=== PATIENT | female | born 1945 | race Caucasian/White ===

== ENCOUNTER 2019-05-26 12:08 | Outpatient (CLI) | payer MEDICARE, SELFPAY ==
--- NOTE | ~2019-05-26 | XR_ITS ---
EXAMINATION: XR knee RT min 4V DATE: 05/26/2019 12:31 INDICATION: Right knee pain. TECHNIQUE: 4 views of right knee were obtained. COMPARISON: None. FINDINGS: Bone alignment is normal. No fracture. There is mild osteoarthritis of medial and patellofe moral compartments. No knee joint effusion. IMPRESSION: 1. Mild right knee osteoarthritis. Reviewed, dictated and finalized at location A. [employer]
== END 2019-05-26 12:09 | disposition home or self-care (01) ==
LOC: ANHIMG 12:16
PROVIDERS: PCP Family Medicine; Visit Provider Physician Assistant
DX: M17.11 Unilateral primary osteoarthritis, right knee (principal)
CPT/HCPCS: 73564

== ENCOUNTER → 2019-05-29 09:45 | Outpatient (CLI) | payer MEDICARE, SELFPAY ==
--- NOTE | ~2019-05-29 | MR_ITS ---
EXAMINATION: MR knee RT wo con DATE: 05/29/2019 10:31 INDICATION: Right knee pain TECHNIQUE: Magnetic resonance imaging (MRI) of the right knee was performed without intravenous contr ast. Sequences included coronal PD-weighted FSE, coronal PD-weighted FS FSE, sagittal T2-weighted FS E, sagittal PD-weighted FS FSE and axial PD weighted fat saturated FSE. COMPARISON: None. FINDINGS: Medial compartment: Medial meniscus is normal. Partial-thickness cartilage loss with mild chondral surface regularity beverly ng the anterior weightbearing medial femoral condyle. Small mild partial-thickness cartilage loss wit h smooth chondral surface along the posterior weightbearing medial femoral condyle. Lateral compartment: Increased signal contacting the superior and inferior articular surface along the inner third of the lateral meniscal body seen only on single coronal image but with suggestion of subtle corresponding i ncreased signal at this location on the axial and sagittal images suspicious for small radial tear. T here is a cartilage loss which on axial images appears full/near full-thickness along the lateral mar gin of the posterior weightbearing lateral femoral condyle. There is suggestion of subtle underlying cortical regular date with prominent subarticular edema at Patellofemoral compartment: Focal chondral swelling with chondral surface irregularity suggesting crabmeat-like fibrillation the inferior junction of the medial and odd facets of the patella. Remaining cartilage in the patellofemo ral compartment appears normal. Ligaments and tendons: Anterior and posterior cruciate ligaments are normal. The medial collateral ligament is normal. Mild thickening and mild increased intrasubstance signal of the proximal fibular collateral ligament witho ut significant surrounding edema consistent with mild scarring related to chronic sprain. Mild tendin opathy at the lateral side of the distal quadriceps tendon. Patellar tendon is normal. The visualized medial and lateral hamstring tendons as well as the iliotibial band are normal. Fluid: Small knee joint effusion at the suprapatellar pouch. No loose osteochondral bodies identified. Osseous/other: Aside from the marrow edema at the posterolateral aspect of the lateral femoral condyle there is norm al marrow signal throughout. No fracture or pathologic marrow replacing process. IMPRESSION: 1. Likely small radial tear along the inner third of the body of the lateral meniscus. 2. 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 Less severe moderate grade chondromalacia along the anterior weightbearing medi al femoral condyle and the junction of the medial and patellar facets. 3. Small right knee joint effusion. 4. Mild distal quadriceps tendinopathy. 5. Likely mild scarring related to chronic sprain of the proximal fibular collateral ligament. Reviewed, dictated and finalized at location A. [employer] [employer] [facility] IMPRESSION: 1. Likely small radial tear along the inner third of the body of the lateral me niscus. 2. Small region of high-grade chondromalacia along the lateral rim of the poste rior weightbearing lateral femoral condyle. Less severe moderate grade chondrom alacia along the anterior weightbearing medial femoral condyle and the junction of the medial and patellar facets. 3. Small right knee joint effusion. 4. Mild distal quadriceps tendinopathy. 5. Likely mild scarring related to chronic sprain of the proximal fibular colla teral ligament.
== END ==
PROVIDERS: PCP Family Medicine; Visit Provider Physician Assistant
DX: M76.891 Other specified enthesopathies of right lower limb, excluding foot (principal); M25.461 Effusion, right knee; M94.28 Chondromalacia, other site
CPT/HCPCS: 73721

== ENCOUNTER 2019-07-30 08:31 | Emergency (ER) | payer MEDICARE, SELFPAY ==
--- NOTE | ~2019-07-30 | CT_ITS ---
EXAMINATION: CT brain wo con EXAM DATE: 07/30/2019 10:16 INDICATION: Generalized headache. TECHNIQUE: Spiral CT of the head was performed without contrast. Axial, coronal and sagittal images were reviewed. The dose-length product (DLP) for this examination was 605.33 mGy-cm. The exposure w as tailored according to patient size, and iterative reconstruction (ASIR) was used as additional dos e reduction technique. Comparison is made to prior examination from 06/22/2012. FINDINGS: There is no acute intraparenchymal hemorrhage. No evidence of intraparenchymal brain mass lesion. No evidence of acute infarction. Please note that initial head CT has limited sensitivity f or small or acute infarctions. There is mild periventricular and subcortical hypodensity, nonspecific but probably related to small vessel ischemic disease. 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 There are no extra-axial collections. There is no mass effect or midline shift. Patient has bay d bilateral ocular lens surgery. Soft tissue is unremarkable. The visualized sinuses and mastoid ai r cells are well aerated. IMPRESSION: 1. No acute intracranial findings. 2. Chronic age related findings. Reviewed, dictated and finalized at location A.
[2019-07-30 08:38] VITALS: BP 190/92; PULSE 69; RESP 20; TEMP 36.4; O2SAT 99
--- NOTE | 2019-07-30 09:21 | ED.HA ---
HPI - Headache General Chief Complaint: Headache Stated Complaint: headache Time Seen by Provider: 07/30/19 08:38 Source: patient Mode of arrival: ambulatory Limitations: no limitations History of Present Illness HPI Narrative: Patient is a 73-year-old female who presents to the emergency department with complaint of headache. Patient reports onset of symptoms yesterday morning. Patient locates the pain in the frontal region and describes it as throbbing. She had nausea with a headache yesterday and is complaining of photophobia. She denies any history of migraines. She thought perhaps it could be due to her chronic sinus issues, but states this is different than usual sinus headache. Patient did not get relief with Tylenol yesterday and headache is unchanged today. Patient went to urgent care for evaluation hoping she can get something for her sinuses that might help and urgent care was closed, prompting her to come to the emergency department. MD elicited complaint: headache Pertinent past history: coagulopathy (Patient on Eliquis for history of chronic DVT) Onset description: on awakening Location: frontal Quality & Timing: throbbing Relieving factors: nothing Associated symptoms: nausea and photophobia Treatments prior to arrival: acetaminophen Related Data Home Medications Medication Instructions Recorded Confirmed atorvastatin 40 mg tablet 40 mg PO DAILY 02/21/19 cetirizine 10 mg tablet 10 mg PO DAILY PRN tablet 02/21/19 nadolol 40 mg tablet 40 mg PO DAILY 02/21/19 omeprazole 40 mg capsule,delayed 40 mg PO DAILY 02/21/19 release Allergies Allergy/AdvReac Type Severity Reaction Status Date / Time Sulfa (Sulfonamide Allergy Mild unknown Verified 06/19/19 13:12 Antibiotics) amlodipine Allergy Unknown Verified 06/19/19 13:12 ciprofloxacin [From Cipro] Allergy Unknown Verified 06/19/19 13:12 clarithromycin Allergy Unknown Verified 06/19/19 13:12 diltiazem Allergy Unknown Verified 06/19/19 13:12 doxycycline Allergy Unknown Verified 06/19/19 13:12 fexofenadine [From Denisa] Allergy Unknown Verified 06/19/19 13:12 guaifenesin [From Entex T] Allergy Unknown Verified 06/19/19 13:12 hydrochlorothiazide Allergy Unknown Verified 06/19/19 13:12 [From Maxzide] isosorbide Allergy Unknown Verified 06/19/19 13:12 oxycodone Allergy Unknown Verified 06/19/19 13:12 pseudoephedrine Allergy Unknown Verified 06/19/19 13:12 [From Entex T] spironolactone Allergy Unknown Verified 06/19/19 13:12 trazodone Allergy Unknown Verified 06/19/19 13:12 triamterene [From Maxzide] Allergy Unknown Verified 06/19/19 13:12 Review of Systems Review of Systems: All systems reviewed & are unremarkable except as noted in HPI and below Constitutional: Constitutional: Denies fever(s) ENT: Reports post nasal drip and Reports sinus pressure Respiratory: Respiratory: Reports cough (Secondary to postnasal drip) Gastrointestinal: Gastrointestinal: Reports nausea Neurologic: Reports headache(s) [facility] Past Medical History Medical History 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 deep 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
[2019-07-30] MEDS: METOCLOPRAMIDE HCL INJ 10 MG/2 ML VIAL IV PUSH (09:24)
[2019-07-30 09:25] VITALS: BP 158/115; PULSE 68; RESP 16; O2SAT 100
[2019-07-30 09:35] LABS: Basophils Percent Auto 0.4 % (0.2-1.2); Eosinophils Percent Auto 0.7 % (0-4.4); Hematocrit 43.1 % (37.0-47.0); Hemoglobin 13.7 g/dL (12.0-15.0); Immature Granulocyte Absolute 0.02 K/mm3 (0.00-0.031); Immature Granulocyte Percent A 0.4 % (0-0.5); Lymphocytes Absolute Auto 1.95 K/mm3 (0.9-3.2); Lymphocytes Percent Auto 35.5 % (18.3-44.2); Mean Corpuscular HGB Conc 31.8 g/dl (32-36); Mean Corpuscular Hemoglobin 30.6 pg (26-34); Mean Corpuscular Volume 96.2 fl (80-100); Mean Platelet Volume 9.9 fl (7.4-10.4); Monocytes Absolute Auto 0.6 K/mm3 (0.1-0.6); Monocytes Percent Auto 10.4 % (2.6-8.5); Neutrophils Absolute Auto 2.9 K/mm3 (1.3-6.7); Neutrophils Percent Auto 52.6 % (45.5-73.1); Platelet Count Result 211 k/mm3 (150-375); Red Blood Count 4.48 M/mm3 (4.2-5.4); Red Cell Distribution Width 13.8 % (11.5-14.5); White Blood Count 5.5 K/mm3 (4.5-10.0)
[2019-07-30 09:42] VITALS: BP 164/92; PULSE 68; RESP 18; O2SAT 98
[2019-07-30 09:45] LABS: Partial Thromboplastin Time 27.5 SECONDS (22.3-36.8); Prothrombin Time 12.7 Seconds (11.1-14.7)
[2019-07-30 09:47] LABS: Alanine Aminotransferase 32 U/L (4-35); Albumin Level 4.2 g/dL (3.5-5.1); Alkaline Phosphatase 49 U/L (38-126); Aspartate Amino Transferase 25 U/L (14-36); Bilirubin,Total 0.5 mg/dL (0.2-1.3); Blood Urea Nitrogen 12 mg/dL (7-17); Calcium 9.1 mg/dL (8.4-10.2); Carbon Dioxide 26 mmol/L (22-30); Chloride 104 mmol/L (98-107); Estimated CRCL calculation 58 ml/min; Estimated Glomerular Filt Rate > 60; Glucose 108 mg/dL (65-105); Potassium 3.8 mmol/L (3.4-5.0); Sodium 138 mmol/L (137-145)
--- NOTE | 2019-07-30 10:01 | PC.NURSE ---
PT AMBULATED TO BATHROOM, STEADY ON HER FEET, STATES THAT SHE IS FEELING MUCH BETTER.
--- NOTE | 2019-07-30 11:06 | PC.NURSE ---
PT REPORT GIVEN BEDSIDE TO JAD KNIGHT AT THIS TIME, SHE HAS ASSUMED PT CARE.
== END 2019-07-30 11:59 | disposition home or self-care (01) ==
PROVIDERS: Emergency Provider Emergency Medicine; PCP Family Medicine
DX: R51 Headache (principal); I25.118 Atherosclerotic heart disease of native coronary artery with other forms of angina pectoris; I82.542 Chronic embolism and thrombosis of left tibial vein; Z79.01 Long term (current) use of anticoagulants; M47.812 Spondylosis without myelopathy or radiculopathy, cervical region; M47.816 Spondylosis without myelopathy or radiculopathy, lumbar region; K21.9 Gastro-esophageal reflux disease without esophagitis; E78.2 Mixed hyperlipidemia; M81.0 Age-related osteoporosis without current pathological fracture; M35.3 Polymyalgia rheumatica; I10 Essential (primary) hypertension; Z96.641 Presence of right artificial hip joint; E11.42 Type 2 diabetes mellitus with diabetic polyneuropathy; E11.65 Type 2 diabetes mellitus with hyperglycemia; Z79.84 Long term (current) use of oral hypoglycemic drugs
CPT/HCPCS: 36415; 70450; 80053; 85025; 85610; 85730; 96365; 96375; 99284; J0131; J2765

== ENCOUNTER → 2019-12-04 08:48 | Outpatient (CLI) | payer MEDICARE, SELFPAY ==
--- NOTE | ~2019-12-04 | DEXA_ITS ---
Bone Density Report Name: Karlee Jackson Age: 73 Sex: Female Ethnicity: White Date of : 1945 Indication: postmenopausal; screening for osteoporosis; history of glucocorticoids; hysterectomy; Referring Provider: PHYSICIAN NOT ON STAFF Study: Bone densitometry was performed. Exam Date: December 04, 2019 Accession number: [id number] Bone Density: Region BMD T-score Z-score Classification Total Forearm (Left) 0.408 -3.1 -0.3 1/3 Forearm (Left) 0.549 -2.3 0.4 UD Forearm (Left) 0.250 -3.2 -1.1 World Health Organization criteria for BMD impression classify patients as: Normal (T-score at or above -1.0), Osteopenia (T-score between -1.0 and -2.5), or Osteoporosis (T-score at or below -2.5). Clinical Information Provided by Patient: Has taken Glucocorticoids Has used the following medications: Vitamin D Has the following medical conditions: Hysterectomy Patient maximum height was 67 Menopause Age: 46 No regular weight bearing exercise Onset of menses at age 12 Number of children 2 Impression: The patient has low bone mass, based on the Left Third Radius T-score. The patient has risk factors, including: history of glucocorticoid therapy. Discussion: BONE DENSITY IS LOW AT ONE OR MORE SKELETAL SITES. This patient's lowest T-score is low at one or more skeletal sites. It meets the World Health Organization's (WHO) criteria for ?low bone mass? (T-score between -1.0 and -2.5). The patient's 10-year risk of fracture as calculated by FRAX is less than the threshold where pharmacological therapy is recommended by the National Osteoporosis Foundation (NOF). However, all treatment decisions require clinical judgment and consideration of individual patient factors, including patient preferences, comorbidities, previous drug use, risk factors not captured in the FRAX model (e.g., frailty, falls, vitamin D deficiency, increased bone turnover, interval significant decline in bone density) and possible under or overestimation of fracture risk by FRAX. The patient should follow a healthful lifestyle (good nutrition with adequate calcium and vitamin D, and appropriate weight-bearing exercise). Follow-Up: Consider repeating this study in 2 to 3 years to reassess this patient's status, or sooner if there is some new clinical indication. Reported by: BECCA on 12/04/2019 10:33:00 AM. Reviewed, dictated and finalized at location Monica [facility]
--- NOTE | ~2019-12-04 | DEXA_ITS ---
Bone Density Report Name: Karlee Jackson Age: 73 Sex: Female Ethnicity: White Date of : 1945 Indication: postmenopausal; screening for osteoporosis; history of glucocorticoids; hysterectomy; Referring Provider: PHYSICIAN NOT ON STAFF Study: Bone densitometry was performed. Exam Date: December 04, 2019 Accession number: [id number] Bone Density: Region BMD T-score Z-score Classification AP Spine (L1, L2) 0.819 -1.5 0.8 Osteopenia World Health Organization criteria for BMD impression classify patients as: Normal (T-score at or above -1.0), Osteopenia (T-score between -1.0 and -2.5), or Osteoporosis (T-score at or below -2.5). Previous Exams: Region Exam Age BMD T-score BMD Change BMD Change Date g/cm2 vs Baseline vs Previous AP Spine(L1, L2) 12/04/2019 73 0.819 -1.5 -0.421 -0.099* 12/09/2007 61 0.918 -0.6 -0.323 -0.084* 04/27/2005 59 1.001 0.2 -0.239 -0.239 04/09/2003 57 1.240 2.4 *Denotes significance at 95% confidence level, LSC for AP Spine = 0.022 g/cm2 Clinical Information Provided by Patient: Has taken Glucocorticoids Has used the following medications: Vitamin D Has the following medical conditions: Hysterectomy Patient maximum height was 67 Menopause Age: 46 No regular weight bearing exercise Onset of menses at age 12 Number of children 2 Impression: The patient has low bone mass, based on the Total Spine T-score. The patient has risk factors, including: history of glucocorticoid therapy. The BMD for the AP Spine(L1, L2) decreased, changing by -0.099 since the last DXA exam. Discussion: BONE DENSITY IS LOW AT ONE OR MORE SKELETAL SITES. This patient's lowest T-score is low at one or more skeletal sites. It meets the World Health Organization's (WHO) criteria for ?low bone mass? (T-score between -1.0 and -2.5). The patient's 10-year risk of fracture as calculated by FRAX is less than the threshold where pharmacological therapy is recommended by the National Osteoporosis Foundation (NOF). However, all treatment decisions require clinical judgment and consideration of individual patient factors, including patient preferences, comorbidities, previous drug use, risk factors not captured in the FRAX model (e.g., frailty, falls, vitamin D deficiency, increased bone turnover, interval significant decline in bone density) and possible under or overestimation of fracture risk by FRAX. The patient should follow a healthful lifestyle (good nutrition with adequate calcium and vitamin D, and appropriate weight-bearing exercise). Follow-Up: Consider repeating this study in 2 years to reassess this patient's status, or sooner if there is some new clinical indication. Reported
== END ==
PROVIDERS: PCP Family Medicine
DX: Z78.0 Asymptomatic menopausal state (principal); M85.88 Other specified disorders of bone density and structure, other site
CPT/HCPCS: 77080; 77081

== ENCOUNTER → 2019-12-21 07:59 | Outpatient (CLI) | payer MEDICARE, SELFPAY ==
--- NOTE | ~2019-12-21 | MR_ITS ---
EXAMINATION: MR brain/brain stem wo con EXAM DATE: 12/21/2019 09:12 INDICATION: Headache disorder, polymyalgia rheumatica. Right-sided pressure, pain behind right eye. S ymptoms one year. TECHNIQUE: Magnetic resonance imaging (MRI) of the brain/brain stem obtained without contrast. Alex al T1, axial diffusion, gradient echo (T2*), T1, T2, FLAIR sequences obtained. Correlation is made t o head CT 07/30/2019. FINDINGS: There are no areas of restricted diffusion to suggest acute infarction. There is no acute hemorrhage seen on the T2*, a hemosiderin sensitive sequence. No intraparenchymal brain mass lesion. There is mild periventricular and subcortical T2/FLAIR signal hyperintensity, nonspecific but probab ly related to small vessel ischemic disease (microangiopathy). There are no extra-axial collections . Flow voids are seen in the cerebral arteries on the T2-weighted sequences consistent with their ex pected patency. Patient has had bilateral ocular lens surgery. Soft tissue is unremarkable. IMPRESSION: 1. No acute intracranial findings. 2. Mild microangiopathy. Reviewed, dictated and finalized at location A.
--- NOTE | ~2019-12-21 | MR_ITS ---
EXAMINATION: MRA brain wo con EXAM DATE: 12/21/2019 09:09 INDICATION: Right-sided head pressure, pain behind right eye. TECHNIQUE: 3-D [id number] MRA of the intracranial arteries was performed without contrast. There is no prior study for comparison. FINDINGS: There is normal flow related signal seen within the vertebral, basilar and internal carotid arteries. There is no proximal stenosis. There are no aneurysms identified. Both A1 and P1 segments are pat ent. Flow in the cerebral arteries is symmetric. Left vertebral artery is dominant. IMPRESSION: Unremarkable MRA brain exam. Reviewed, dictated and finalized at location A.
== END ==
PROVIDERS: PCP Family Medicine
DX: R51 Headache (principal); M35.3 Polymyalgia rheumatica; R93.0 Abnormal findings on diagnostic imaging of skull and head, not elsewhere classified
CPT/HCPCS: 70544; 70551

== ENCOUNTER → 2020-01-15 11:29 | Outpatient (CLI) | payer MEDICARE, SELFPAY ==
--- NOTE | ~2020-01-15 | MM_ITS ---
EXAMINATION: MM screening cyril BI w radha HISTORY: Screening TECHNIQUE: Craniocaudal and mediolateral oblique 3-D tomosynthesis images were obtained and synthetic 2-D images were generated. CAD analysis was submitted and interpreted. COMPARISON: Comparison to multiple prior studies sequentially, with oldest reviewed study dated 09/24. BREAST PARENCHYMAL COMPOSITION: There are scattered areas of fibroglandular density. FINDINGS: Stable benign-appearing breast calcifications. There is no evidence of suspicious mass, kwesi cification, or architectural distortion to suggest malignancy in either breast. There has been no kizzy picious interval change. IMPRESSION: 1. No mammographic evidence of malignancy. 2. Recommend routine screening mammography in one year. BI-RADS Category 2: Benign finding(s). Reviewed, dictated and finalized at location A.
== END ==
PROVIDERS: PCP Family Medicine; Visit Provider Family Medicine
DX: Z12.31 Encounter for screening mammogram for malignant neoplasm of breast (principal)
CPT/HCPCS: 77063; 77067

== ENCOUNTER 2020-02-27 02:35 | Outpatient (CLI) | payer MEDICARE, SELFPAY ==
[2020-02-27 19:47] LABS: SARS-CoV-2 RNA PCR Negative
== END 2020-02-27 02:36 | disposition home or self-care (01) ==
LOC: ANHCOVIDDT 02:36
PROVIDERS: PCP Family Medicine; Visit Provider Internal Medicine Gastroenterology
DX: Z01.812 Encounter for preprocedural laboratory examination (principal); Z20.828 Contact with and (suspected) exposure to other viral communicable diseases
CPT/HCPCS: 87635; C9803; U0003

== ENCOUNTER 2020-03-01 04:08 | Day surgery (SDC) | payer MEDICARE, SELFPAY ==
[2020-02-26 13:11] VITALS: BMI 25.9
[2020-03-01 07:09] VITALS: BP 174/85; PULSE 75; RESP 20; TEMP 36; O2SAT 96
[2020-03-01] MEDS: LACTATED RINGERS 1,000 ML 150 ML IV CONT (07:26)
[2020-03-01 07:30] LABS: Glucose Point of Care 85 (65-105)
--- NOTE | 2020-03-01 08:02 | WPDANESEPPF ---
Anes - Initial Pre Proc Eval Procedure: Operation Date: 03/01/20 08:30 Proposed Procedures p Esophagogastroduodenoscopy - Arash Padilla MD Date/Time: 03/01/20 08:02 Surgeon: Arash Padilla MD Pre Op Diagnosis: GERD Patient Data Age: 74 Gender: F Height: 5 ft 7 in Weight: 76 kg Last Vital Signs Temp 36.0 C L 03/01/20 07:09 Pulse 75 03/01/20 07:09 Resp 20 03/01/20 07:09 BP 174/85 H 03/01/20 07:09 Pulse Ox 96 03/01/20 07:09 Allergies Allergy/AdvReac Type Severity Reaction Status Date / Time Sulfa (Sulfonamide Allergy Mild unknown Verified 03/01/20 07:07 Antibiotics) amitriptyline Allergy Other Verified 03/01/20 07:07 amlodipine Allergy Unknown Verified 03/01/20 07:07 ciprofloxacin [From Cipro] Allergy Unknown Verified 03/01/20 07:07 citalopram Allergy Other Verified 03/01/20 07:07 clarithromycin Allergy Unknown Verified 03/01/20 07:07 diltiazem Allergy Unknown Verified 03/01/20 07:07 doxycycline Allergy Unknown Verified 03/01/20 07:07 fexofenadine [From Denisa] Allergy Unknown Verified 03/01/20 07:07 guaifenesin [From Entex T] Allergy Unknown Verified 03/01/20 07:07 hydrochlorothiazide Allergy Unknown Verified 03/01/20 07:07 [From Maxzide] isosorbide Allergy Unknown Verified 03/01/20 07:07 nortriptyline Allergy Other Verified 03/01/20 07:07 oxycodone Allergy Unknown Verified 03/01/20 07:07 pseudoephedrine Allergy Unknown Verified 03/01/20 07:07 [From Entex T] sertraline Allergy Other Verified 03/01/20 07:07 spironolactone Allergy Unknown Verified 03/01/20 07:07 trazodone Allergy Unknown Verified 03/01/20 07:07 triamterene [From Maxzide] Allergy Unknown Verified 03/01/20 07:07 Home Medications Medication Instructions Recorded Confirmed Type cetirizine 10 mg tablet 10 mg PO DAILY PRN tablet 02/21/19 03/01/20 History triamcinolone acetonide 55 mcg 2 spray NASAL DAILY #16.9 ml 07/31/19 03/01/20 Rx nasal spray aerosol atorvastatin 40 mg tablet 40 mg PO DAILY #90 tablet 08/15/19 03/01/20 Rx folic acid 1 mg tablet 1 mg PO DAILY #90 tablet 09/15/19 03/01/20 Rx prednisone 2.5 mg tablet 2.5 mg PO DAILY #90 tablet 09/15/19 03/01/20 Rx metformin 500 mg tablet,extended 500 mg PO DAILY #90 tablet 10/06/19 03/01/20 Rx release 24 hr alprazolam 0.5 mg tablet 0.5 mg PO .COMPLEX #2 tablet 12/11/19 03/01/20 Rx apixaban 5 mg tablet 5 mg PO BID #60 tablet 12/14/19 03/01/20 Rx verapamil 120 mg 24 hr 120 mg PO DAILY #90 cap 12/14/19 03/01/20 Rx capsule,extended release cholecalciferol (vitamin D3) 1,250 1,250 mcg PO WEEKLY 12/15/19 03/01/20 History mcg (50,000 unit) capsule nadolol 40 mg tablet 40 mg PO DAILY #90 tablet 12/29/19 03/01/20 Rx blood sugar diagnostic #100 each 01/11/20 03/01/20 Rx zolpidem 5 mg tablet 5 mg PO ONCE #60 tablet 02/05/20 03/01/20 Rx pantoprazole 40 mg tablet,delayed 40 mg PO QAM #90 tablet 02/27/20 03/01/20 Rx release Laboratory Tests 03/01/20 07:22 POC Capillary Glucose 85 mg/dl mg/dl (65-105) Patient hx anesthesia problems: none Family hx anesthesia problems: none [facility] Past Medical History Medical History Atherosclerotic heart disease of [place] coronary artery with other forms of angina pectoris Chronic deep vein thrombosis (DVT) of tibial vein of left lower extremity Degenerative joint disease of cervical and lumbar spine Diabetic polyneuropathy associated with type 2 diabetes mellitus Gastroesophageal reflux disease Mixed hyperlipidemia Osteoporosis, unspecified Polymyalgia rheumatica (~04/2018) Primary insomnia Type 2 diabetes mellitus with hyperglycemia Unspecified essential hypertension Surgical History Surgical History Status post right hip replacement Family History Family History Father Family history of coronary artery disease
--- NOTE | 2020-03-01 08:39 | WPDGICN ---
Assessment and Plan Assessment and plan (1) Gastroesophageal reflux disease: Qualifiers: Esophagitis presence: esophagitis presence not specified Qualified Code(s): K21.9 - Gastro-esophageal reflux disease without esophagitis Code(s): K21.9 - Gastro-esophageal reflux disease without esophagitis Status: Chronic Assessment and Plan: patient has substernal discomfort. Appears to be correlate with possible acid reflux. Some improvement with antacids are noted. Plan is to continue pantoprazole. An EGD will be performed further recommendations will be given after endoscopy. 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 patient complains of several month history of substernal chest pressure. She feels regurgitation period acid and fluid peers to reflux from her stomach. She complains of discomfort. She has started pantoprazole over the last 1 to 1-1/2 months with some modest relief of symptoms. She denies any dysphagia or bleeding. Because of ongoing symptoms an EGD is requested will be performed today. Past medical history is significant for a DVT in September of this year for which she has been on Eliquis anticoagulation. This will be held for the procedure. 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 Diabetic polyneuropathy associated with type 2 diabetes mellitus Gastroesophageal reflux disease Mixed hyperlipidemia Osteoporosis, unspecified Polymyalgia rheumatica (~04/2018) Primary insomnia Type 2 diabetes mellitus with hyperglycemia Unspecified essential hypertension Surgical History Surgical History Status post right hip replacement Family History Family History Father Family history of coronary artery disease Other Hypertension Social History Social History Alcohol intake: never Living arrangements: with family Gender identity (if verbalized by the patient): Female Spiritual care concerns: No Meds Home Medications and Allergies Home Medications Medication Instructions Recorded Confirmed Type cetirizine 10 mg tablet 10 mg PO DAILY PRN tablet 02/21/19 03/01/20 History triamcinolone acetonide 55 mcg 2 spray NASAL DAILY #16.9 ml 07/31/19 03/01/20 Rx nasal spray aerosol atorvastatin 40 mg tablet 40 mg PO DAILY #90 tablet 08/15/19 03/01/20 Rx folic acid 1 mg tablet 1 mg PO DAILY #90 tablet 09/15/19 03/01/20 Rx prednisone 2.5 mg tablet 2.5 mg PO DAILY #90 tablet 09/15/19 03/01/20 Rx metformin 500 mg tablet,extended 500 mg PO DAILY #90 tablet 10/06/19 03/01/20 Rx release 24 hr alprazolam 0.5 mg tablet 0.5 mg PO .COMPLEX #2 tablet 12/11/19 03/01/20 Rx apixaban 5 mg tablet 5 mg PO BID #60 tablet 12/14/19 03/01/20 Rx verapamil 120 mg 24 hr 120 mg PO DAILY #90 cap 12/14/19 03/01/20 Rx capsule,extended release cholecalciferol (vitamin D3) 1,250 1,250 mcg PO WEEKLY 12/15/19 03/01/20 History mcg (50,000 unit) capsule nadolol 40 mg tablet 40 mg PO DAILY #90 tablet 12/29/19 03/01/20 Rx blood sugar diagnostic #
[2020-03-01] MEDS: BENZOCAINE (*SP) 60 ML SPRAY CAN (HURRICAINE) 1 SPRAY MUCOUS MEM (08:47)
[2020-03-01 09:04] VITALS: BP 146/77; PULSE 68; RESP 19; O2SAT 94
[2020-03-01 09:14] VITALS: BP 129/73; PULSE 68; RESP 20; O2SAT 99
[2020-03-01 09:24] VITALS: BP 132/81; PULSE 72; RESP 23; O2SAT 95
[2020-03-01 09:34] VITALS: BP 128/80; PULSE 70; RESP 23; O2SAT 96
== END 2020-03-01 09:48 | disposition home or self-care (01) ==
PROVIDERS: PCP Family Medicine; Visit Provider Internal Medicine Gastroenterology
PROC: 0DJ08ZZ Inspection of Upper Intestinal Tract, Via Natural or Artificial Opening Endoscopic (ICD-10-PCS; CPT 43235; principal; 2020-03-01 08:30)
DX: K21.9 Gastro-esophageal reflux disease without esophagitis (principal); K22.70 Barrett's esophagus without dysplasia; I25.10 Atherosclerotic heart disease of native coronary artery without angina pectoris; I10 Essential (primary) hypertension; E78.2 Mixed hyperlipidemia; E11.42 Type 2 diabetes mellitus with diabetic polyneuropathy; M35.3 Polymyalgia rheumatica; I82.542 Chronic embolism and thrombosis of left tibial vein; Z79.01 Long term (current) use of anticoagulants; F51.01 Primary insomnia
CPT/HCPCS: 43239; 88305; J2001; J2704; J7120

== ENCOUNTER → 2021-02-07 15:32 | Outpatient (CLI) | payer MEDICARE, SELFPAY ==
--- NOTE | ~2021-02-07 | MM_ITS ---
EXAMINATION: MM screening cyril BI w radha HISTORY: Screening mammogram TECHNIQUE: Craniocaudal and mediolateral oblique 3-D tomosynthesis images were obtained and synthetic 2-D images were generated. CAD analysis was submitted and interpreted. COMPARISON: 01/15/2020, 11/25/2018, 11/04/2017 bilateral screening mammogram examinations BREAST PARENCHYMAL COMPOSITION: The breasts are heterogeneously dense, which may obscure small masses . FINDINGS: Numerous benign punctate microcalcifications are noted bilaterally. There is no evidence of suspicious mass, calcification, or architectural distortion to suggest malignancy in either breast. There has been no suspicious interval change. IMPRESSION: 1. No mammographic evidence of malignancy. 2. Recommend routine screening mammography in one year. BI-RADS Category 2: Benign finding(s). Reviewed, dictated and finalized at location A.
== END ==
PROVIDERS: Visit Provider Physician Assistant
DX: Z12.31 Encounter for screening mammogram for malignant neoplasm of breast (principal)
CPT/HCPCS: 77063; 77067

== ENCOUNTER 2021-09-26 13:14 | Emergency (ER) | payer MEDICARE, SELFPAY ==
[2021-09-26 13:30] VITALS: BP 159/106; PULSE 70; RESP 20; TEMP 36.4; O2SAT 100
--- NOTE | 2021-09-26 13:35 | ED.URI ---
HPI - URI/Sore Throat General Chief Complaint: Upper Respiratory Infection Stated Complaint: Sore Throat Time Seen by Provider: 09/26/21 13:35 History of Present Illness HPI Narrative: Karlee Jackson is a 75 y female with a PMH of HTN, anxiety, anticoagulation, SVT, sleep difficulty, patient is here for a scratchy throat. Her just diagnosed with strep. She has to watch her grandchildren next week and she is concerned; patient swabbed for strep Patient states she has had all her vaccines and has no other symptoms; is not concerned about COVID Related Data Home Medications Medication Instructions Recorded Confirmed cetirizine 10 mg tablet 10 mg PO DAILY PRN Allergy Symptoms 02/21/19 09/26/21 amitriptyline 10 mg tablet 10 mg PO QHS 08/19/20 09/26/21 alprazolam 0.5 mg tablet 0.5 mg PO .COMPLEX PRN Anxiety 09/26/21 09/26/21 Allergies Allergy/AdvReac Type Severity Reaction Status Date / Time Sulfa (Sulfonamide Allergy Mild unknown Verified 09/26/21 13:23 Antibiotics) amitriptyline Allergy Other Verified 09/26/21 13:23 amlodipine Allergy Unknown Verified 09/26/21 13:23 ciprofloxacin [From Cipro] Allergy Unknown Verified 09/26/21 13:23 citalopram Allergy Other Verified 09/26/21 13:23 clarithromycin Allergy Unknown Verified 09/26/21 13:23 diltiazem Allergy Unknown Verified 09/26/21 13:23 doxycycline Allergy Unknown Verified 09/26/21 13:23 fexofenadine [From Denisa] Allergy Unknown Verified 09/26/21 13:23 guaifenesin [From Entex T] Allergy Unknown Verified 09/26/21 13:23 hydrochlorothiazide Allergy Unknown Verified 09/26/21 13:23 [From Maxzide] isosorbide Allergy Unknown Verified 09/26/21 13:23 nortriptyline Allergy Other Verified 09/26/21 13:23 oxycodone Allergy Unknown Verified 09/26/21 13:23 pseudoephedrine Allergy Unknown Verified 09/26/21 13:23 [From Entex T] sertraline Allergy Other Verified 09/26/21 13:23 spironolactone Allergy Unknown Verified 09/26/21 13:23 trazodone Allergy Unknown Verified 09/26/21 13:23 triamterene [From Maxzide] Allergy Unknown Verified 09/26/21 13:23 Review of Systems Review of Systems: CONSTITUTIONAL: Denies fever, chills, sweats. EYES: Denies visual changes, redness, discharge. ENT: Denies rhinorrhea, congestion, scratchy sore throat, otalgia. CARDIOVASCULAR: Denies chest pain, palpitations, edema. RESPIRATORY: Denies dyspnea, wheezing, cough GASTROINTESTINAL: Denies abdominal pain, nausea, vomiting, diarrhea. GENITOURINARY: Denies dysuria, hematuria, abnormal discharge SKIN: Denies rash or itching. NEUROLOGIC: Denies numbness, or focal weakness. PSYCHIATRIC: Denies anxiety or depression. [facility] Past Medical History Medical History Atherosclerotic heart disease of [place] coronary artery with other forms of angina pectoris Chronic deep vein thrombosis (DVT) of tibial vein of left lower extremity Degenerative joint disease of cervical and lumbar spine Diabetic polyneuropathy associated with type 2 diabetes mellitus Gastroesophageal reflux disease Mixed hyperlipidemia Osteoporosis, unspecified Polymyalgia rheumatica (~04/2018) Primary insomnia Type 2 diabetes mellitus with hyperglycemia Unspecified essential hypertension Surgical History Surgical History Status post right hip replacement Family History Family History Father Family history of coronary artery disease Other Hypertension Social History Social History Alcohol intake: never Gender identity (if verbalized by the patient): Female Spiritual care concerns: No Comments At time of signature, I agree with nursing past medical, surgical, social and family history. There is no relevant family history pertinent to the presenting complaint. Exam Narrative: GEN
== END 2021-09-26 13:47 | disposition home or self-care (01) ==
PROVIDERS: Emergency Provider Nurse Practitioner; PCP Family Medicine
DX: J02.9 Acute pharyngitis, unspecified (principal); I25.118 Atherosclerotic heart disease of native coronary artery with other forms of angina pectoris; Z86.718 Personal history of other venous thrombosis and embolism; M47.812 Spondylosis without myelopathy or radiculopathy, cervical region; M47.816 Spondylosis without myelopathy or radiculopathy, lumbar region; E11.42 Type 2 diabetes mellitus with diabetic polyneuropathy; E78.2 Mixed hyperlipidemia; M81.0 Age-related osteoporosis without current pathological fracture; I10 Essential (primary) hypertension
CPT/HCPCS: 87081; 87880; 99213; G0463

== ENCOUNTER 2021-11-27 08:09 | Emergency (ER) | payer MEDICARE, SELFPAY ==
[2021-11-27 08:26] VITALS: BP 194/82; PULSE 58; RESP 16; TEMP 36.1; O2SAT 100
--- NOTE | 2021-11-27 08:26 | ED.URI ---
HPI - URI/Sore Throat General Chief Complaint: Upper Respiratory Infection Stated Complaint: COUGH/CONGESTION/SORE THROAT Time Seen by Provider: 11/27/21 08:16 Source: patient and RN notes reviewed History of Present Illness HPI Narrative: Patient is a 75-year-old female who presents the urgent care with complaints of cough, congestion, sore throat and sinus drainage for the last 3 days. Patient states that the sore throat started this morning. Patient states that her had strep 2 weeks ago and her daughter was diagnosed with COVID over 1 week ago. Patient has not seen her daughter for the last several days. States that her was treated appropriately 2 weeks ago for strep throat. Patient is not taking anything [id number] for her symptoms. Denies any fevers, nausea, vomiting. Denies any shortness of breath or chest pain. Patient states that she has been sitting outside in the cool mornings and believes her symptoms are due to the sinus drainage. No other acute complaints. No acute distress noted. Patient aware of the plan of care. Some parts of this dictation were generated by voice recognition software and may contain typographical and/or grammatical inaccuracies. Related Data Home Medications Medication Instructions Recorded Confirmed cetirizine 10 mg tablet 10 mg PO DAILY PRN Allergy Symptoms 02/21/19 11/12/21 amitriptyline 10 mg tablet 10 mg PO QHS 08/19/20 11/12/21 omeprazole 40 mg capsule,delayed 40 mg PO DAILY 11/19/21 release Allergies Allergy/AdvReac Type Severity Reaction Status Date / Time Sulfa (Sulfonamide Allergy Mild unknown Verified 11/19/21 13:19 Antibiotics) amlodipine Allergy Unknown Verified 11/19/21 13:19 ciprofloxacin [From Cipro] Allergy Unknown Verified 11/19/21 13:19 citalopram Allergy Other Verified 11/19/21 13:19 clarithromycin Allergy Unknown Verified 11/19/21 13:19 diltiazem Allergy Unknown Verified 11/19/21 13:19 doxycycline Allergy Unknown Verified 11/19/21 13:19 fexofenadine [From Denisa] Allergy Unknown Verified 11/19/21 13:19 guaifenesin [From Entex T] Allergy Unknown Verified 11/19/21 13:19 hydrochlorothiazide Allergy Unknown Verified 11/19/21 13:19 [From Maxzide] isosorbide Allergy Unknown Verified 11/19/21 13:19 nortriptyline Allergy Other Verified 11/19/21 13:19 oxycodone Allergy Unknown Verified 11/19/21 13:19 pseudoephedrine Allergy Unknown Verified 11/19/21 13:19 [From Entex T] sertraline Allergy Other Verified 11/19/21 13:19 spironolactone Allergy Unknown Verified 11/19/21 13:19 trazodone Allergy Unknown Verified 11/19/21 13:19 triamterene [From Maxzide] Allergy Unknown Verified 11/19/21 13:19 Review of Systems Review of Systems: CONSTITUTIONAL: Denies fever, chills, or sweats. EYES: Denies visual changes, redness, or discharge. ENT: Reports of sore throat, sinus congestion, postnasal drainage CARDIOVASCULAR: Denies chest pain, palpitations, or edema. RESPIRATORY: Denies cough or dyspnea. GASTROINTESTINAL: Denies abdominal pain, nausea, vomiting, or diarrhea. GENITOURINARY: Denies dysuria or hematuria. SKIN: Denies rash or itching. MUSCULOSKELETAL: Denies back pain, joint pain, or myalgia. NEUROLOGIC: Denies headache, numbness, or weakness. All other systems reviewed are negative, except as documented in HPI. [facility] Past Medical History Medical History (Updated 11/27/21 @ 08:44 by YANCY Mathew) Atherosclerotic heart disease of [place] coronary artery with other forms of angina pectoris Chronic deep vein thrombosis (DVT) of tibial vein of left lower extremity Degenerative joint disease of cervical and lumbar spine Diabetic polyneuropathy associated with type 2 diabetes mellitus Gastroesophageal reflux disease Mixed hyperlipidemia Osteoporosis, unspecified Polymyalgia rheumatica (~04/2018) Primary insomnia Type 2 diabetes mellitus with hyperglycemia Unspecified essential hypertension Surgical History Surgic
[2021-11-27 20:17] LABS: SARS-CoV-2 RNA PCR Negative
== END 2021-11-27 09:04 | disposition home or self-care (01) ==
PROVIDERS: Emergency Provider Nurse Practitioner Family
DX: J32.9 Chronic sinusitis, unspecified (principal); Z20.822 Contact with and (suspected) exposure to COVID-19; I25.118 Atherosclerotic heart disease of native coronary artery with other forms of angina pectoris; M47.812 Spondylosis without myelopathy or radiculopathy, cervical region; M47.816 Spondylosis without myelopathy or radiculopathy, lumbar region; E11.42 Type 2 diabetes mellitus with diabetic polyneuropathy; K21.9 Gastro-esophageal reflux disease without esophagitis; E78.2 Mixed hyperlipidemia; M81.0 Age-related osteoporosis without current pathological fracture; I10 Essential (primary) hypertension; M35.3 Polymyalgia rheumatica; Z96.642 Presence of left artificial hip joint
CPT/HCPCS: 87081; 87426; 87880; 99213; C9803; G0463; U0003; U0005

== ENCOUNTER 2021-12-05 13:06 | Emergency (ER) | payer OTHER, MEDICARE, SELFPAY ==
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
[2021-12-05 13:40] VITALS: BP 189/77; PULSE 62; RESP 20; TEMP 36.6; O2SAT 100
[2021-12-05 16:46] LABS: Glucose Point of Care 107 mg/dl (65-105)
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
== END 2021-12-05 17:36 | disposition home or self-care (01) ==
PROVIDERS: Emergency Provider Emergency Medicine; PCP Family Medicine
DX: S16.1XXA Strain of muscle, fascia and tendon at neck level, initial encounter (principal); R51.9 Headache, unspecified; I25.118 Atherosclerotic heart disease of native coronary artery with other forms of angina pectoris; I10 Essential (primary) hypertension; E11.42 Type 2 diabetes mellitus with diabetic polyneuropathy; E78.2 Mixed hyperlipidemia; M81.0 Age-related osteoporosis without current pathological fracture; M35.3 Polymyalgia rheumatica; M47.816 Spondylosis without myelopathy or radiculopathy, lumbar region; M47.812 Spondylosis without myelopathy or radiculopathy, cervical region; Z86.718 Personal history of other venous thrombosis and embolism; Z96.641 Presence of right artificial hip joint; Z79.84 Long term (current) use of oral hypoglycemic drugs; Z79.01 Long term (current) use of anticoagulants; V49.40XA Driver injured in collision with unspecified motor vehicles in traffic accident, initial encounter
CPT/HCPCS: 70450; 72125; 82948; 99284

== ENCOUNTER 2021-12-25 10:17 | Emergency (ER) | payer MEDICARE, SELFPAY ==
[2021-12-25 10:29] VITALS: BP 152/73; PULSE 73; RESP 16; TEMP 36.4; O2SAT 100
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
== END 2021-12-25 10:57 | disposition home or self-care (01) ==
PROVIDERS: Emergency Provider Registered Nurse; PCP Family Medicine
DX: J32.9 Chronic sinusitis, unspecified (principal); Z20.822 Contact with and (suspected) exposure to COVID-19; K21.9 Gastro-esophageal reflux disease without esophagitis; E78.2 Mixed hyperlipidemia; M81.0 Age-related osteoporosis without current pathological fracture; E11.42 Type 2 diabetes mellitus with diabetic polyneuropathy; I10 Essential (primary) hypertension; Z96.641 Presence of right artificial hip joint; M35.3 Polymyalgia rheumatica; M47.812 Spondylosis without myelopathy or radiculopathy, cervical region; M47.816 Spondylosis without myelopathy or radiculopathy, lumbar region; Z86.718 Personal history of other venous thrombosis and embolism; I25.118 Atherosclerotic heart disease of native coronary artery with other forms of angina pectoris
CPT/HCPCS: 87426; 99213; C9803; G0463

== ENCOUNTER 2022-01-26 20:54 | Emergency (ER) | payer MEDICARE, SELFPAY ==
[2022-01-26 20:57] VITALS: BP 166/97; PULSE 62; RESP 18; TEMP 36.6; O2SAT 100
[2022-01-26 21:18] LABS: Basophils Percent Auto 0.4 % (0.2-1.2); Eosinophils Absolute Auto 0.1 K/mm3 (0-0.3); Hematocrit 39.9 % (37.0-47.0); Hemoglobin 12.6 g/dL (12.0-15.0); Immature Granulocyte Absolute 0.02 K/mm3 (0.00-0.031); Immature Granulocyte Percent A 0.4 % (0-0.5); Lymphocytes Absolute Auto 1.53 K/mm3 (0.9-3.2); Lymphocytes Percent Auto 29.5 % (18.3-44.2); Mean Corpuscular HGB Conc 31.6 g/dl (32-36); Mean Corpuscular Hemoglobin 31.1 pg (26-34); Mean Corpuscular Volume 98.5 fl (80-100); Monocytes Absolute Auto 0.4 K/mm3 (0.1-0.6); Monocytes Percent Auto 7.9 % (2.6-8.5); Neutrophils Absolute Auto 3.2 K/mm3 (1.3-6.7); Neutrophils Percent Auto 60.8 % (45.5-73.1); Platelet Count Result 211 k/mm3 (150-375); Red Blood Count 4.05 M/mm3 (4.2-5.4); Red Cell Distribution Width 14.6 % (11.5-14.5); White Blood Count 5.2 K/mm3 (4.5-10.0)
[2022-01-26 21:30] LABS: Anion Gap 8 mmol/L (8-16); Blood Urea Nitrogen 15 mg/dL (7-17); Calcium 9.3 mg/dL (8.4-10.2); Carbon Dioxide 28 mmol/L (22-30); Chloride 103 mmol/L (98-107); Estimated CRCL calculation 55 ml/min; Estimated Glomerular Filt Rate > 60; Glucose 143 mg/dL (65-110); Potassium 3.6 mmol/L (3.4-5.0); Sodium 139 mmol/L (137-145)
[2022-01-26 21:57] LABS: INR 1.3; Prothrombin Time 15.3 Seconds (11.1-14.7)
[2022-01-26 21:58] LABS: Partial Thromboplastin Time 32.5 SECONDS (22.3-36.8)
[2022-01-26 22:53] LABS: D Dimer 0.37 ug/mL (<0.48)
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
[2022-01-27 00:12] VITALS: BP 159/70; PULSE 68; RESP 18; O2SAT 100
== END 2022-01-27 00:16 | disposition home or self-care (01) ==
PROVIDERS: Emergency Medicine; Emergency Provider Nurse Practitioner Family; PCP Family Medicine
DX: M79.661 Pain in right lower leg (principal); I25.118 Atherosclerotic heart disease of native coronary artery with other forms of angina pectoris; E11.42 Type 2 diabetes mellitus with diabetic polyneuropathy; E78.2 Mixed hyperlipidemia; I10 Essential (primary) hypertension; K21.9 Gastro-esophageal reflux disease without esophagitis; M35.3 Polymyalgia rheumatica; M81.0 Age-related osteoporosis without current pathological fracture; Z86.718 Personal history of other venous thrombosis and embolism; Z96.641 Presence of right artificial hip joint; Z79.01 Long term (current) use of anticoagulants
CPT/HCPCS: 36415; 80048; 85025; 85380; 85610; 85730; 99283

== ENCOUNTER → 2022-03-24 14:44 | Outpatient (CLI) | payer MEDICARE, SELFPAY ==
--- NOTE | ~2022-03-24 | MM_ITS ---
EXAMINATION: MM screening cyril BI w radha HISTORY: Screening TECHNIQUE: Craniocaudal and mediolateral oblique 3-D tomosynthesis images were obtained and synthetic 2-D images were generated. CAD analysis was submitted and interpreted. COMPARISON: Comparison to multiple prior studies sequentially, with oldest reviewed study dated 09/29. BREAST PARENCHYMAL COMPOSITION: The breasts are heterogeneously dense, which may obscure small masses . FINDINGS: There is a focal asymmetry superiorly in the right breast on MLO view which is obscured by fibroglandular tissue. There are benign bilateral breast calcifications. The left breast is stable wi thout evidence for malignancy. IMPRESSION: 1. Focal right breast asymmetry superiorly on MLO view. 2. Additional mammographic views and possible breast ultrasound are recommended. BI-RADS Category 0: Incomplete: Needs additional imaging evaluation. Reviewed, dictated and finalized at location B. SUPERINTENDENT IMPRESSION: 1. Focal right breast asymmetry superiorly on MLO view. 2. Additional mammographic views and possible breast ultrasound are recommended . BI-RADS Category 0: Incomplete: Needs additional imaging evaluation.
== END ==
PROVIDERS: PCP Family Medicine; Visit Provider Family Medicine
DX: Z12.31 Encounter for screening mammogram for malignant neoplasm of breast (principal); R92.8 Other abnormal and inconclusive findings on diagnostic imaging of breast
CPT/HCPCS: 77063; 77067

== ENCOUNTER → 2022-03-30 06:45 | Outpatient (CLI) | payer MEDICARE, SELFPAY ==
--- NOTE | ~2022-03-30 | MR_ITS ---
MRI of the left knee Clinical history: Pain Technique: Coronal proton density and proton density-weighted images, sagittal proton-density and T2 fat-sat images, and axial proton-density fat-saturated images were acquired. Findings: Anterior and posterior cruciate ligaments are intact. Medial collateral ligament and the la teral collateral ligament complex are intact. Popliteus tendon is intact. Suspected focal horizontal tear of the body segment of the lateral meniscus, seen on coronal images. No medial meniscal tear identified. Articular cartilage is well preserved in all 3 joint compartments. Bone marrow signals are unremarkab le. Extensor mechanism is intact. No joint effusion or Hayes's cyst. Impression: Probable focal horizontal tear of the body segment of the lateral meniscus. Reviewed, dictated and finalized at location [] [employer] Impression: Probable focal horizontal tear of the body segment of the lateral meniscus.
== END ==
PROVIDERS: PCP Family Medicine; Visit Provider Nurse Practitioner Adult Health
DX: M25.562 Pain in left knee (principal)
CPT/HCPCS: 73721

== ENCOUNTER 2022-04-14 19:49 | Outpatient (NON) | payer MEDICARE, SELFPAY | END 2022-04-14 19:50 | disposition home or self-care (01) | PROVIDERS: PCP Family Medicine; Visit Provider Nurse Practitioner | DX: R30.0 Dysuria (principal) | CPT/HCPCS: 87077; 87086; 87186 ==

== ENCOUNTER → 2022-04-22 07:39 | Outpatient (CLI) | payer MEDICARE, SELFPAY ==
--- NOTE | ~2022-04-22 | MMUS_ITS ---
EXAMINATION: MM diagnostic cyril RT w radha, US breast RT limited HISTORY: Focal asymmetry in superior aspect of right breast on screening MLO view of 04/10/2022 TECHNIQUE: Additional 3-D tomosynthesis images of the right breast were performed and synthetic 2-D i mages were generated. CAD analysis was submitted and interpreted. High resolution upper inner and upp er outer quadrant right breast ultrasound was performed. COMPARISON: 03/24/2022 bilateral screening mammogram FINDINGS: MAMMOGRAPHIC FINDINGS: No suspicious mass, architectural distortion, malignant calcification, skin thickening or retraction is evident. Multiple punctate benign calcifications are again noted. ULTRASOUND: No suspicious mass or shadowing, cyst or other significant sonographic abnormality is noted in the up per half of the right breast. IMPRESSION: 1. No mammographic evidence of malignancy 2. Routine mammographic screening is recommended BI-RADS Category 1: Negative Reviewed, dictated and finalized at location A. DENTIAL COLLECTIONS IMPRESSION: 1. No mammographic evidence of malignancy 2. Routine mammographic screening is recommended BI-RADS Category 1: Negative
== END ==
PROVIDERS: PCP Family Medicine; Visit Provider Clinical Nurse Specialist
DX: R92.8 Other abnormal and inconclusive findings on diagnostic imaging of breast (principal)
CPT/HCPCS: 76642; 77061; 77065; G0279

== ENCOUNTER 2022-05-14 00:53 | Day surgery (SDC) | payer MEDICARE, SELFPAY ==
[2022-05-01 13:40] VITALS: BMI 21.9
[2022-05-14 08:56] VITALS: BP 160/92; PULSE 66; RESP 17; TEMP 36.1; O2SAT 98; BMI 21.4
[2022-05-14] MEDS: LACTATED RINGERS 1,000 ML 150 ML IV CONT (09:09)
[2022-05-14 09:11] LABS: Glucose Point of Care 87 mg/dl (65-105)
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
[2022-05-14 10:28] VITALS: BP 142/22; PULSE 69; RESP 20; O2SAT 96
[2022-05-14 10:38] VITALS: BP 138/72; PULSE 67; RESP 22; O2SAT 96
[2022-05-14 10:56] VITALS: BP 161/82; PULSE 65; RESP 16; O2SAT 100
== END 2022-05-14 11:01 | disposition home or self-care (01) ==
PROVIDERS: PCP Family Medicine; Visit Provider Internal Medicine Gastroenterology
PROC: 0DJ08ZZ Inspection of Upper Intestinal Tract, Via Natural or Artificial Opening Endoscopic (ICD-10-PCS; CPT 43235; principal; 2022-05-14 10:00)
DX: K22.70 Barrett's esophagus without dysplasia (principal); K21.9 Gastro-esophageal reflux disease without esophagitis; I25.118 Atherosclerotic heart disease of native coronary artery with other forms of angina pectoris; E11.42 Type 2 diabetes mellitus with diabetic polyneuropathy; E78.2 Mixed hyperlipidemia; M81.0 Age-related osteoporosis without current pathological fracture; I10 Essential (primary) hypertension; M35.3 Polymyalgia rheumatica; Z86.718 Personal history of other venous thrombosis and embolism; Z79.84 Long term (current) use of oral hypoglycemic drugs
CPT/HCPCS: 43239; 82948; 88305; J2704; J7120

== ENCOUNTER → 2022-05-26 07:45 | Outpatient (CLI) | payer MEDICARE, SELFPAY ==
--- NOTE | ~2022-05-26 | MR_ITS ---
EXAMINATION: MR cervical spine wo con DATE: 05/26/2022 09:15 INDICATION: Neck pain. TECHNIQUE: Magnetic resonance imaging (MRI) of the cervical spine was performed without intravenous c ontrast. Sequences included sagittal T2-weighted FSE, sagittal T2-weighted FS FSE, sagittal T1-weight ed FSE, axial MERGE, and axial T2-weighted FSE. COMPARISON: Cervical spine MRI 09/17/2010 FINDINGS: There is hyperlordosis of cervical spine. There is 5 degrees levocurvature of cervicothorac ic spine. Vertebral body heights are normal. There is moderately decreased disc height at C4-C5 and C 5-C6. The spinal cord signal intensity is normal. The following disc levels are specifically discusse d: C2-C3: There is a central extrusion. There is mild left uncovertebral joint osteoarthritis. There is mild bilateral facet joint osteoarthritis. There is no neural foraminal stenosis. There is mild centr al canal stenosis. C3-C4: There is a central extrusion. There is mild bilateral uncovertebral joint osteoarthritis. Ther e is mild right and severe left facet joint osteoarthritis. There is mild left neural foraminal steno sis. There is no central canal stenosis. C4-C5: The disc does not extend beyond the endplate margin. There is severe right and moderate left u ncovertebral joint osteoarthritis. There is severe bilateral facet joint osteoarthritis. There is mod erate right and mild left neural foraminal stenosis. There is no central canal stenosis. C5-C6: There is a central extrusion. There is severe right and moderate left uncovertebral joint oste oarthritis. There is severe bilateral facet joint osteoarthritis. There is mild bilateral neural fora mick stenosis. There is mild central canal stenosis. C6-C7: The disc does not extend beyond the endplate margin. There is no uncovertebral joint osteoarth ritis. There is moderate right and mild left facet joint osteoarthritis. There is mild right neural f oraminal stenosis. There is no central canal stenosis. C7-T1: The disc does not extend beyond the endplate margin. There is no uncovertebral joint osteoarth ritis. There is severe bilateral facet joint osteoarthritis. There is mild bilateral neural foraminal stenosis. There is no central canal stenosis. IMPRESSION: 1. Moderate cervical spondylosis, worsened from 09/17/2010. Reviewed, dictated and finalized at location A. [employer] MA[employer]GER
== END ==
PROVIDERS: PCP Family Medicine; Visit Provider Nurse Practitioner Family
DX: M47.892 Other spondylosis, cervical region (principal)
CPT/HCPCS: 72141

== ENCOUNTER 2022-06-05 08:09 | Emergency (ER) | payer MEDICARE, SELFPAY ==
[2022-06-05 08:23] VITALS: BP 153/76; PULSE 71; RESP 16; TEMP 36.4; O2SAT 98
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
== END 2022-06-05 08:41 | disposition home or self-care (01) ==
PROVIDERS: Emergency Provider Nurse Practitioner Family; PCP Family Medicine
DX: J02.9 Acute pharyngitis, unspecified (principal); Z20.89 Contact with and (suspected) exposure to other communicable diseases; K21.9 Gastro-esophageal reflux disease without esophagitis; E78.2 Mixed hyperlipidemia; Z86.718 Personal history of other venous thrombosis and embolism; E11.9 Type 2 diabetes mellitus without complications; Z20.822 Contact with and (suspected) exposure to COVID-19
CPT/HCPCS: 87081; 87426; 87880; 99213; C9803; G0463

== ENCOUNTER 2022-09-15 13:42 | Emergency (ER) | payer MEDICARE, SELFPAY ==
[2022-09-15 13:48] VITALS: BP 163/67; PULSE 64; RESP 16; TEMP 36.4; O2SAT 100
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
== END 2022-09-15 14:27 | disposition home or self-care (01) ==
PROVIDERS: Emergency Provider Nurse Practitioner; PCP Family Medicine
DX: J02.9 Acute pharyngitis, unspecified (principal); I25.118 Atherosclerotic heart disease of native coronary artery with other forms of angina pectoris; M47.812 Spondylosis without myelopathy or radiculopathy, cervical region; M47.816 Spondylosis without myelopathy or radiculopathy, lumbar region; E11.42 Type 2 diabetes mellitus with diabetic polyneuropathy; E78.2 Mixed hyperlipidemia; I10 Essential (primary) hypertension; Z86.718 Personal history of other venous thrombosis and embolism; Z96.641 Presence of right artificial hip joint
CPT/HCPCS: 87081; 87880; 99213; G0463

== ENCOUNTER 2022-10-12 03:40 | Day surgery (SDC) | payer MEDICARE, SELFPAY ==
[2022-09-18 11:45] VITALS: BMI 20.3
--- NOTE | 2022-10-06 10:43 | PC.NURSE ---
spoke with patient, reviewed meds and times for procedure. denies any recent changes in health history.
[2022-10-12 06:12] VITALS: BP 169/81; PULSE 68; RESP 18; TEMP 35.8; O2SAT 99; BMI 21.4
[2022-10-12] MEDS: LACTATED RINGERS 1,000 ML 150 ML IV CONT (06:35)
[2022-10-12 06:38] LABS: Glucose Point of Care 85 mg/dl (65-105)
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
[2022-10-12 07:56] VITALS: BP 135/71; PULSE 74; RESP 22; O2SAT 95
[2022-10-12 08:06] VITALS: BP 135/72; PULSE 62; RESP 20; O2SAT 97
[2022-10-12 08:16] VITALS: BP 159/84; PULSE 63; RESP 20; O2SAT 99
== END 2022-10-12 08:28 | disposition home or self-care (01) ==
PROVIDERS: PCP Family Medicine; Visit Provider Internal Medicine Gastroenterology
PROC: 0DJ08ZZ Inspection of Upper Intestinal Tract, Via Natural or Artificial Opening Endoscopic (ICD-10-PCS; CPT 43235; principal; 2022-10-12 07:30)
DX: K22.70 Barrett's esophagus without dysplasia (principal); R59.0 Localized enlarged lymph nodes; E11.42 Type 2 diabetes mellitus with diabetic polyneuropathy; E78.2 Mixed hyperlipidemia; I10 Essential (primary) hypertension; M35.3 Polymyalgia rheumatica; I25.10 Atherosclerotic heart disease of native coronary artery without angina pectoris; I82.542 Chronic embolism and thrombosis of left tibial vein; K21.9 Gastro-esophageal reflux disease without esophagitis; M81.0 Age-related osteoporosis without current pathological fracture; F51.01 Primary insomnia; Z79.84 Long term (current) use of oral hypoglycemic drugs
CPT/HCPCS: 43239; 82948; 88305; J2704; J7120

== ENCOUNTER 2022-11-10 08:14 | Outpatient (CLI) | payer MEDICARE, SELFPAY ==
--- NOTE | ~2022-11-10 | XR_ITS ---
EXAMINATION: XR barium swallow modified DATE: 11/10/2022 09:19 INDICATION: Dysphagia. TECHNIQUE: The patient was given barium-containing material of multiple consistencies to swallow by t keith speech pathologist while I performed fluoroscopy. Fluoroscopy exposure time was 2.3 minutes. The n umber of fluoroscopy images saved to the PACS was 1. Dose-area product was 1.461 Gy-cm^2. FINDINGS: There is vallecular residue and pyriform sinus residue. No laryngeal penetration or aspiration. A bar ium pill passed with no difficulty. IMPRESSION: 1. No laryngeal penetration or aspiration. 2. Please refer to the speech therapy report for recommendations. Reviewed, dictated and finalized at location A.
--- NOTE | 2022-11-10 10:32 | STOPEVDC ---
Assessment and note entered by MEHREEN Vieyra Thank you for referring Karlee Jackson to [facility] An evaluation has been completed. No further treatment is needed. Evaluation Information Assessment Status Evaluation Reported Pain Level Pain Score 0: Self Report Assessment ST Clinical Summary MODIFIED BARIUM SWALLOW REPORT I. Complaint & History: The above 76-year-old female was seen for a modified barium swallow on 11/10/22. She was seen at the request of her physician due to a history of dysphagia beginning in September of 2022. The patient's current intake method is oral. Her current diet consistency is regular (Level 7) with thin liquids. Pt. history is positive for GERD and Acevedo?s esophagus. EGD in May 2022 indicated Acevedo?s esophagus to be stable. Pt. reported developing right throat discomfort upon swallowing in September of 2022 that has since resolved. EGD on 10/12/22 indicated Acevedo?s esophagus with no evidence of dysplasia. At that time pt. reported continued difficulty swallowing larger pills and swelling of right lymph node. On the date of this evaluation, pt. reports swollen lymph node as resolved. Pt. indicated not discomfort/pain at this time associated with swallowing. Pt. reported eating ?softer? foods, such as cottage cheese, applesauce, etc. She is now also introducing tougher meats back into her diet, but ensures that pieces are cut small and masticated well. Pt. indicates continued difficulty swallowing larger pills, noting that these are typically cut in half and taken with applesauce. At times they feel ?stuck? on the right side of her throat when swallowing. Pt. admits to feeling an inconsistent ?stuck? sensation in her throat with oral intake. II. Evaluation Results: The patient was viewed in a lateral position and presented with trials of 5cc of thin liquid barium via spoon, uncontrolled liquid barium via open cup, and uncontrolled liquid barium via straw. Oral preparatory and oral phases were within functional limits. During the pharyngeal phase, pt. demonstrated mildly reduced tongue base retraction laryngeal elevation as evidenced by
== END 2022-11-10 08:15 | disposition home or self-care (01) ==
PROVIDERS: PCP Family Medicine; Visit Provider Otolaryngology
DX: R13.10 Dysphagia, unspecified (principal)
CPT/HCPCS: 92611

== ENCOUNTER 2022-11-23 13:31 | Outpatient (CLI) | payer MEDICARE, SELFPAY ==
[2022-11-23 14:32] LABS: Kit Draw Collected
== END 2022-11-23 13:32 | disposition home or self-care (01) ==
LOC: ANHGOSHLAB 13:33
PROVIDERS: PCP Family Medicine; Visit Provider Nurse Practitioner
DX: E11.65 Type 2 diabetes mellitus with hyperglycemia (principal); D64.9 Anemia, unspecified; R25.2 Cramp and spasm; E55.9 Vitamin D deficiency, unspecified
CPT/HCPCS: 36415

== ENCOUNTER 2023-02-26 10:10 | Emergency (ER) | payer MEDICARE, SELFPAY ==
[2023-02-26 10:24] VITALS: BP 161/78; PULSE 72; RESP 16; TEMP 36; O2SAT 100
[2023-02-26] MEDS: TETANUS,DIPHTHERIA,AC PERTUSSIS ADULT (0.5 ML) BOOSTRIX IM (10:48)
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
== END 2023-02-26 11:04 | disposition home or self-care (01) ==
PROVIDERS: Emergency Provider Nurse Practitioner; PCP Family Medicine
DX: S51.812A Laceration without foreign body of left forearm, initial encounter (principal); W22.8XXA Striking against or struck by other objects, initial encounter; Z23 Encounter for immunization; Z86.718 Personal history of other venous thrombosis and embolism; M47.812 Spondylosis without myelopathy or radiculopathy, cervical region; M47.816 Spondylosis without myelopathy or radiculopathy, lumbar region; I25.118 Atherosclerotic heart disease of native coronary artery with other forms of angina pectoris; E11.42 Type 2 diabetes mellitus with diabetic polyneuropathy; E78.2 Mixed hyperlipidemia; M81.0 Age-related osteoporosis without current pathological fracture; I10 Essential (primary) hypertension; Z96.651 Presence of right artificial knee joint
CPT/HCPCS: 90471; 90715; 99212; G0463

== ENCOUNTER 2023-07-07 14:48 | Emergency (ER) | payer MEDICARE, SELFPAY ==
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
[2023-07-07 15:00] VITALS: BP 142/73; PULSE 69; RESP 16; TEMP 36.5; O2SAT 100
[2023-07-07 15:31] VITALS: BP 142/73; PULSE 69; RESP 16; TEMP 36.5; O2SAT 100
== END 2023-07-07 15:30 | disposition home or self-care (01) ==
PROVIDERS: Emergency Provider Nurse Practitioner Family; PCP Family Medicine
DX: K62.89 Other specified diseases of anus and rectum (principal); R19.7 Diarrhea, unspecified; I25.118 Atherosclerotic heart disease of native coronary artery with other forms of angina pectoris; Z86.718 Personal history of other venous thrombosis and embolism; M47.812 Spondylosis without myelopathy or radiculopathy, cervical region; M47.816 Spondylosis without myelopathy or radiculopathy, lumbar region; E11.42 Type 2 diabetes mellitus with diabetic polyneuropathy; K21.9 Gastro-esophageal reflux disease without esophagitis; E78.2 Mixed hyperlipidemia; M81.0 Age-related osteoporosis without current pathological fracture; I10 Essential (primary) hypertension; Z96.641 Presence of right artificial hip joint
CPT/HCPCS: 99213; G0463

== ENCOUNTER 2023-07-08 11:40 | Outpatient (CLI) | payer MEDICARE, SELFPAY ==
--- NOTE | ~2023-07-08 | MM_ITS ---
EXAMINATION: MM screening cyril BI w radha HISTORY: Screening mammogram TECHNIQUE: Craniocaudal and mediolateral oblique 3-D tomosynthesis images were obtained and synthetic 2-D images were generated. CAD analysis was submitted and interpreted. COMPARISON: 04/22/2022 diagnostic right mammogram and limited right breast ultrasound 03/24/2022, 02/07/2021 bilateral screening mammogram examinations BREAST PARENCHYMAL COMPOSITION: The breasts are heterogeneously dense, which may obscure small masses . FINDINGS: There is no evidence of suspicious mass, calcification, or architectural distortion to sugg est malignancy in either breast. There has been no suspicious interval change. IMPRESSION: 1. No mammographic evidence of malignancy. 2. Recommend routine screening mammography in one year. BI-RADS Category 1: Negative Reviewed, dictated and finalized at location A.
== END 2023-07-08 11:41 ==
PROVIDERS: PCP Family Medicine; Visit Provider Family Medicine
DX: Z12.31 Encounter for screening mammogram for malignant neoplasm of breast (principal)
CPT/HCPCS: 77063; 77067

== ENCOUNTER 2023-07-25 09:53 | Emergency (ER) | payer MEDICARE, SELFPAY ==
--- NOTE | ~2023-07-25 | XR_ITS ---
EXAMINATION: XR wrist RT min 3V DATE: 07/25/2023 10:39 INDICATION: Right wrist pain and swelling TECHNIQUE: Posteroanterior, ulnar deviation, oblique, and lateral views of the right wrist were obtai vivian. COMPARISON: none FINDINGS: Bone alignment is normal. No fracture. Moderate osteoarthritis at the first carpometacarpal joint. Mi ld osteoarthritis at the distal radioulnar and triscaphe joints. No erosions to suggest inflammatory arthritis. There is soft tissue swelling along the dorsal/ulnar aspect of the distal forearm. IMPRESSION: 1. 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 No acute osseous abno rmality. 2. Nonspecific soft tissue swelling along the dorsal/ulnar side of the distal forearm near the expect ed location of the extensor carpi ulnaris. Reviewed, dictated and finalized at location A. IMPRESSION: 1. 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 No acute osseous abnormality. 2. Nonspecific soft tissue swelling along the dorsal/ulnar side of the distal f orearm near the expected location of the extensor carpi ulnaris.
[2023-07-25 10:08] VITALS: BP 159/67; PULSE 68; RESP 16; TEMP 36.7; O2SAT 100
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
[2023-07-25 10:21] VITALS: BP 159/67; PULSE 68; RESP 16; TEMP 36.7; O2SAT 100
== END 2023-07-25 11:14 | disposition home or self-care (01) ==
PROVIDERS: Emergency Provider Nurse Practitioner; PCP Family Medicine
DX: J06.9 Acute upper respiratory infection, unspecified (principal); L03.113 Cellulitis of right upper limb; Z20.822 Contact with and (suspected) exposure to COVID-19; I25.118 Atherosclerotic heart disease of native coronary artery with other forms of angina pectoris; Z86.718 Personal history of other venous thrombosis and embolism; M47.812 Spondylosis without myelopathy or radiculopathy, cervical region; M47.816 Spondylosis without myelopathy or radiculopathy, lumbar region; E11.42 Type 2 diabetes mellitus with diabetic polyneuropathy; E78.2 Mixed hyperlipidemia; M81.0 Age-related osteoporosis without current pathological fracture; M35.3 Polymyalgia rheumatica; I10 Essential (primary) hypertension; Z96.641 Presence of right artificial hip joint
CPT/HCPCS: 73110; 87426; 87804; 99213; G0463

== ENCOUNTER 2024-04-11 08:10 | Emergency (ER) | payer MEDICARE, SELFPAY ==
[2024-04-11 08:24] VITALS: BP 180/70; PULSE 67; RESP 16; TEMP 36.3; O2SAT 100
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
[2024-04-11 08:34] LABS: EDCOVIDSCREEN Negative (Negative); EDINFLUASCREEN Negative (Negative); EDINFLUBSCREEN Negative (Negative); EDSTREPNEGPOS1 Negative (Negative)
== END 2024-04-11 08:53 | disposition home or self-care (01) ==
PROVIDERS: Emergency Provider Registered Nurse; PCP Family Medicine
DX: J39.9 Disease of upper respiratory tract, unspecified (principal); J02.9 Acute pharyngitis, unspecified; Z20.822 Contact with and (suspected) exposure to COVID-19; E11.42 Type 2 diabetes mellitus with diabetic polyneuropathy; K21.9 Gastro-esophageal reflux disease without esophagitis; E78.2 Mixed hyperlipidemia; M81.0 Age-related osteoporosis without current pathological fracture; M35.3 Polymyalgia rheumatica; I10 Essential (primary) hypertension; M47.812 Spondylosis without myelopathy or radiculopathy, cervical region; M47.816 Spondylosis without myelopathy or radiculopathy, lumbar region; Z86.718 Personal history of other venous thrombosis and embolism
CPT/HCPCS: 87081; 87426; 87804; 87880; 99213; G0463

== ENCOUNTER 2024-05-10 03:26 | Day surgery (SDC) | payer MEDICARE, SELFPAY ==
[2024-04-27 11:45] VITALS: BMI 20.7
--- OUTSIDE RECORDS SUMMARY | 2024-05-10 03:30 | XMS_ITS | Referral Summary ---
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 (CMS/HCC) (HCC) (Primary Dx); Microvascular angina (HCC) 03/14/2024 12:44 PM PUBLICITY DIRECTOR - 03/14/2024 11:59 PM PUBLICITY DIRECTOR Hospital Encounter [facility] [address] [place] [address] [phone] Richard De La Torre NP Spondylosis of lumbar region without myelopathy or radiculopathy (Primary Dx); Cervicalgia; Sacroiliitis (HCC); Myofascial pain; Myalgia Discharge Disposition: Discharge to home or self care 02/15/2024 7:35 AM PUBLICITY DIRECTOR - 02/15/2024 11:59 PM PUBLICITY DIRECTOR Hospital Encounter [facility] [address] [place] [id number] Richard De La Torre NP Right shoulder pain, unspecified chronicity; Myofascial pain Discharge Disposition: Discharge to home or self care 02/08/2024 1:05 PM CDT - 02/08/2024 11:59 PM CDT Hospital Encounter [facility] [address] [place] [address] Richard De La Torre NP Right shoulder pain, unspecified chronicity (Primary Dx); Myofascial pain; Cervicalgia; Myalgia Discharge Disposition: Discharge to home or self care from Last 3 Months Allergies Active Allergy Reactions Criticality Noted Date Comments Ciprofloxacin Unknown Low 01/10/2018 Metal taste Clarithromycin Unknown Low 01/10/2018 Hydrocodone Stomach upset Low 04/22/2016 Other reaction(s): Stomach upset nausea nausea Sulfa (Sulfonamide Antibiotics) Unknown Medium 11/21/2014 Other reaction(s): Urticaria red welts Sulfasalazine Other (See comments),Urticaria Medium 11/21/2014 red welts Other reaction(s): Urticaria red welts Medications nadolol (CORGARD) 40 mg tablet Take 1 tablet (40 mg total) by mouth daily with lunch Active verapamil ER (VERELAN) 120 mg 24 hr capsule Take 1 capsule (120 mg total) by mouth daily Active zolpidem (AMBIEN) 5 mg tabletIndicatio ns:Sleep-Onset Insomnia Take 1 tablet (5 mg total) by mouth nightly Active OneTouch Ultra Blue Test Strip strip 0 Active metFORMIN XR (GLUCOPHAGE XR) 500 mg 24 hr tablet Take 1 tablet (500 mg total) by mouth daily 2 Active atorvastatin (LIPITOR) 40 mg tablet Take 1 tablet (40 mg total) by mouth daily Active famotidine (PEPCID) 20 mg tablet 2 Active lisinopriL (PRINIVIL,ZESTR IL) 5 mg tablet Take 1 tablet (5 mg total) by mouth daily [address] (PROTONIX) 40 mg EC tabletIndicatio ns:twice daily Take 1 tablet (40 mg total) by mouth 2 (two) times a day Active bisacodyl EC (DULCOLAX EC) 5 mg EC tabletIndicatio ns:constipation Take 1 tablet (5 mg total) by mouth daily as needed for constipation Active psyllium, aspartame, SF (METAMUCIL SF) 3.4 gram packet Take 1 packet by mouth daily Active lidocaine jelly (XYLOCAINE) 2 % Apply topically 2 (two) times a day 30 mL 4 Active lidocaine 5 % gelIndications: anal fissure Apply 0.5 inches topically 3 (three) times a day 30 g 3 4 Active amitriptyline (ELAVIL) 10 mg tabletIndicatio ns:Migraine Prevention Take one tablet at night on Wednesday, Wednesday and Wednesday. 36 tablet 3 4 Active aspirin 81 mg enteric coated tablet Take 1 tablet (81 mg total) by mouth daily Active Active Problems Problem Noted Date Diagnosed Date Sacroiliitis 12/21/2023 Trochanteric bursitis of left hip 10/25/2023 Hip sprain, right, initial encounter 10/05/2023 Anal fissure 09/07/2023 Myalgia 08/31/2023 Bilateral wrist pain 08/30/2023 Pain in both wrists 08/30/2023 Bilateral sacroiliitis 08/10/2023 Spondylosis of lumbar region without myelopathy or radiculopathy 08/10/2023 Cervicalgia 08/10/2023 Myofascial pain 08/10/2023 Hematoma of leg, right, initial encounter 2021 Pre-operative clearance 01/02/2022 Assessment & Plan (01/02/2022 3:48 PM CDT): Appears to be at average risk for age and lifestyle for her orthopedic procedure. 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 There was no evidence on exam of temporal arteritis. Continue amitriptyline 3 times a week. Side effects reviewed. Follow up in one year. Assessment & Plan (03/18/2020 3:03 PM PUBLICITY DIRECTOR): We will continue to monitor her headache pattern. We will consider surgical, if the patient is to clinically decompensate or the clinical course is suggestive of such testing. PMR (polymyalgia rheumatica) ([facility]) 0 Assessment & Plan (12/11/2019 5:04 PM CDT): Ms. Mccarty has undergone extensive workup with rheumatology and her PCP. She has been on high dose steroids and tapered down until symptoms of possible temporal arteritis appeared and Ms. Mccarty has since struggled to discontinue the steroids. Plan: 1. Continue to have rheumatology and PCP manage steroid treatment 2. MRI and MRA for acute onset of headaches and for possible temporal arteritis which can be correlated with PMR. We will consider a surgical consult down the road if necessary for biopsy of the temporal artery. Varicose veins of bilateral lower extremities wi th pain 10/03/2018 PAD (peripheral artery disease) 04/13/2018 Plantar fasciitis of right foot 01/10/2018 Arthritis 10/25/2017 Gastroesophageal reflux disease 10/25/2017 Insomnia 10/25/2017 Primary osteoarthritis of right hip 04/21/2017 Coronary artery disease of n ative artery of rosebud heart with stable angina pectoris ([facility]) 02/22/2017 Overview (10/25/2017): Overview: Last Assessment & Plan: Mild coronary artery disease with microvascular angina which is controlled with medication. With her upcoming surgery, will obtain a pharmacologic MPI for preoperative clearance. Assessment & Plan (03/17/2024 8:24 AM PUBLICITY DIRECTOR): Previously characterized as mild. He had not been taking an aspirin due to a possible allergy but now reports she was tolerating a leave on a p.r.n. basis so reasonable to consider her for daily aspirin use. Continue atorvastatin. Assessment & Plan (03/10/2023 1:46 PM PUBLICITY DIRECTOR): Previously characterized as mild. Continue atorvastatin. Possible risk of allergic reaction to aspirin. Assessment & Plan (01/02/2022 3:36 PM CDT): Previously characterized as mild. No symptoms on her current medical regimen. Stopped aspirin and Lipitor for unclear reasons. Assessment & Plan (02/28/2019 1:32 PM PUBLICITY DIRECTOR): Mild coronary artery disease, asymptomatic. She is no longer on aspirin because of being on Eliquis. She has a history of microvascular angina which is quiescent on verapamil. If any back surgery is necessary, she is cleared. Assessment & Plan (02/28/2018 2:01 PM PUBLICITY DIRECTOR): Asymptomatic. For some reason, she has stopped taking aspirin. I advised her to resume it. Although she has coronary artery disease, I am comfortable with a short course of NSAID therapy (2 weeks) if her vascular surgeon thinks that it would benefit her phlebitis. (she is going to call us with the name and number of her vascular surgeon so we can communicate this.) Assessment & Plan (02/22/2017 6:36 PM PUBLICITY DIRECTOR): Mild coronary artery disease with microvascular angina which is controlled with medication. With her upcoming surgery, will obtain a pharmacologic MPI for preoperative clearance. Essential hypertension 02/22/2017 Overview (10/25/2017): Overview: Last Assessment & Plan: Blood pressure is not well controlled. I advised her to increase lisinopril to 20 mg daily by doubling up on her 10 mg pills. She has an appointment later this month with Dr. Forbes, so he can follow up on how her blood pressure is doing with this. Assessment & Plan (03/10/2023 1:47 PM PUBLICITY DIRECTOR): Currently well controlled. Continue current prescription medications. Assessment & Plan (01/02/2022 3:48 PM CDT): Controlled. Continue current prescription medications. Assessment & Plan (02/27/2021 2:57 PM PUBLICITY DIRECTOR): Blood pressure is controlled on her current regimen of Nadolol 40 mg daily and verapamil 120 mg daily. Assessment & Plan (02/27/2020 12:10 PM PUBLICITY DIRECTOR): Blood pressure is adequately controlled on current regimen. No change was made. Assessment & Plan (02/28/2019 1:31 PM PUBLICITY DIRECTOR): Blood pressure is adequately controlled on current regimen. No change was made. Assessment & Plan (02/28/2018 2:03 PM PUBLICITY DIRECTOR): Blood pressure is adequately controlled on current regimen. No change was made. Assessment & Plan (02/22/2017 6:37 PM PUBLICITY DIRECTOR): Blood pressure is not well controlled. I advised her to increase lisinopril to 20 mg daily by doubling up on her 10 mg pills. She has an appointment later this month with Dr. Forbes, so he can follow up on how her blood pressure is doing with this. Hyperlipidemia 02/22/2017 Overview (10/25/2017): Overview: Last Assessment & Plan: On chronic lipid lowering therapy with good control. No changes made. Assessment & Plan (03/10/2023 1:46 PM PUBLICITY DIRECTOR): Lipid panel far out of range. Her total triglycerides are greater than 650. She does have a history of diabetes but to what extent it is controlled is unclear to me. Will obtain a fasting lipid panel for further clarity. Assessment & Plan (02/27/2021 2:58 PM PUBLICITY DIRECTOR): Continue atorvastatin Assessment & Plan (02/27/2020 12:10 PM PUBLICITY DIRECTOR): On chronic lipid lowering therapy with good control. No changes made. Assessment & Plan (02/28/2019 1:31 PM PUBLICITY DIRECTOR): On chronic lipid lowering therapy with good control. No changes made. Assessment & Plan (02/28/2018 2:02 PM PUBLICITY DIRECTOR): LDL today is significantly higher than last year. She admits that she has not been taking her atorvastatin faithfully because she ? gets tired of taking medicine? . I reviewed with her last year's results and this year's results and encouraged her to take it daily as prescribed. Assessment & Plan (02/22/2017 6:38 PM PUBLICITY DIRECTOR): On chronic lipid lowering therapy with good control. No changes made. 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 checks blood sugar 2-3 times per week Primary osteoarthritis of left hip 04/22/2016 Microvascular angina 02/12/2014 Overview (07/16/2016): Angina Assessment & Plan (03/17/2024 8:24 AM PUBLICITY DIRECTOR): Diagnosis not well established but no symptoms on verapamil. Continue. Assessment & Plan (03/10/2023 1:47 PM PUBLICITY DIRECTOR): Unclear how this was formally documented however she is doing well on her current regimen will not make any adjustments at this time. Assessment & Plan (02/27/2021 2:56 PM PUBLICITY DIRECTOR): Asymptomatic. She has been on verapamil for a long time for this, and it appears to be working. She is not on aspirin because of being on Eliquis. Assessment & Plan (02/27/2020 12:10 PM PUBLICITY DIRECTOR): Asymptomatic on beta-holly therapy. Bleeding internal hemorrhoids 07/25/2010 Elevated d-dimer Pain of right lower extremity Resolved Problems Problem Noted Date Diagnosed Date Resolved Date Headache disorder 12/11/2019 11/10/2023 Assessment & Plan (03/12/2023 1:24 PM PUBLICITY DIRECTOR): Ms. Mccarty has history of headaches that are under control. Her headaches have significantly decreased since being on amitriptyline. Historically, her headaches are mixed in nature. She is on amitriptyline 10 mg every other night for headache management. She states this has been helpful in her headache reduction in assisting her sleep pattern. Has tried to cease the medication but noted an increase in her headache pattern. Due to her clinical course, a surgical consult for temporal artery biopsy is not necessary at this time. Should her clinical course change or the patient decompensate, a temporal artery biopsy should be considered. She has previously failed multiple medications for headache prevention which include Zoloft, nortriptyline, citalopram and escitalopram. Her headache is currently well managed in combination with her amitriptyline and verapamil and nadolol which are both managed by cardiology. Plan: 1. Continue amitriptyline 10 mg but take it every other night to help with medication side effects. Or she can take 5 mg daily. 2. Headache diary 3. Continue with verapamil and nadolol as prescribed by cardiology 4. Encouraged a well-balanced diet and regular exercise regimen 3-4 days per week for 30 minutes at a time. 5. Consider switching to Effexor XR 37.5mg and ceasing amitriptyline if the side effects don't get better. 6. Follow-up 6-12 months Assessment & Plan (09/04/2022 11:19 AM CDT): Ms. Mccarty has history of headaches that are under control. Her headaches have significantly decreased since being on amitriptyline. Historically, her headaches are mixed in nature. She is on amitriptyline 10 mg every other night for headache management. She states this has been helpful in her headache reduction in assisting her sleep pattern. Has tried to cease the medication but noted an increase in her headache pattern. Due to her clinical course, a surgical consult for temporal artery biopsy is not necessary at this time. Should her clinical course change or the patient decompensate, a temporal artery biopsy should be considered. She has previously failed multiple medications for headache prevention which include Zoloft, nortriptyline, citalopram and escitalopram. Her headache is currently well managed in combination with her amitriptyline and verapamil and nadolol which are both managed by cardiology. Plan: 1. Continue amitriptyline 10 mg but take it every other night to help with medication side effects 2. Headache diary 3. Continue with verapamil and nadolol as prescribed by cardiology 4. Encouraged a well-balanced diet and regular exercise regimen 3-4 days per week for 30 minutes at a time. 5. Consider switching to Effexor XR 37.5mg and ceasing amitriptyline if the side effects don't get better. 6. Follow-up 6-9 months Assessment & Plan (02/11/2022 12:29 PM CDT): Ms. Mccarty has history of headaches that are under control. Her headaches have significantly decreased since being on amitriptyline. Historically, her headaches are mixed in nature. She is on amitriptyline 10 mg nightly for headache management. She states this has been helpful in her headache reduction in assisting her sleep pattern. She has been having issues with constipation secondary to the medication. Has tried to cease the medication but noted an increase in her headache pattern. Due to her clinical course, a surgical consult for temporal artery biopsy is not necessary at this time. Should her clinical course change or the patient decompensate, a temporal artery biopsy should be considered. She has previously failed multiple medications for headache prevention which include Zoloft, nortriptyline, citalopram and escitalopram. Her headache is currently well managed in combination with her amitriptyline and verapamil and nadolol which are both managed by cardiology. Plan: 1. Continue amitriptyline 10 mg but take it every other night to help with medication side effects 2. Headache diary 3. Continue with verapamil and nadolol as prescribed by cardiology 4. Encouraged a well-balanced diet and regular exercise regimen 3-4 days per week for 30 minutes at a time. 5. Consider switching to Effexor XR 37.5mg and ceasing amitriptyline if the side effects don't get better. 6. Follow-up 6 months Assessment & Plan (02/26/2021 11:41 AM PUBLICITY DIRECTOR): Ms. Mccarty has history of headaches that are under control until September of this year. Her headaches have significantly decreased since her last visit, they are essentially nonexistent per her report. Historically, her headaches are mixed in nature. She is on amitriptyline 10 mg nightly for headache management. She states this has been helpful in her headache reduction in assisting her sleep pattern. Due to her clinical course, a surgical consult for temporal artery biopsy is not necessary at this time. Should her clinical course change or the patient decompensate, a temporal artery biopsy should be considered. She has previously failed multiple medications for headache prevention which include Zoloft, nortriptyline, citalopram and escitalopram. Her headache is currently well managed in combination with her amitriptyline and verapamil and nadolol which are both managed by cardiology. Plan: 1. Continue amitriptyline 10 mg nightly 2. Headache diary 3. Continue with verapamil and nadolol as prescribed by cardiology 4. Encouraged a well-balanced diet and regular exercise regimen 3-4 days per week for 30 minutes at a time. 5. Follow-up 12 months Assessment & Plan (08/20/2020 12:34 PM CDT): Ms. Mccarty has history of headaches that are under control until September of this year. Her headaches have significantly decreased since her last visit, they are very infrequent and more mild when they do occur. Her headaches are mixed in nature. She is still on steroid taper that is managed by rheumatology. She is on amitriptyline 10 mg nightly for headache management. She states this has been helpful in her headache reduction in assisting her sleep pattern. Due to her clinical course, a surgical consult for temporal artery biopsy is not necessary at this time. Should her clinical course change or the patient decompensate, a temporal artery biopsy should be considered. She has previously failed multiple medications for headache prevention which include Zoloft, nortriptyline, citalopram and escitalopram. Her headache is currently well managed in combination with her amitriptyline and verapamil and nadolol which are both managed by cardiology. Plan: 1. Continue amitriptyline 10 mg nightly 2. Headache diary 3. Continue with verapamil and nadolol as prescribed by cardiology 4. Encouraged a well-balanced diet and regular exercise regimen 3-4 days per week for 30 minutes at a time. 5. Follow-up 6 months Assessment & Plan (03/18/2020 3:01 PM PUBLICITY DIRECTOR): Ms. Mccarty has history of headaches that are under control until September of this year. She continues to have headaches that are in the right temporal area and behind her right eye. Her headaches are mixed in nature. She is no longer having daily headaches, she is reporting about 1 headache per week. She is still on steroids 5 mg prednisone taper that is managed by rheumatology. She is on amitriptyline 10 mg nightly for headache management. She states this has been helpful in her headache reduction in assisting her sleep pattern. Due to her clinical course, a surgical consult for temporal artery biopsy is not necessary at this time. Should her clinical course change or the patient decompensate, a temporal artery biopsy should be considered. Plan: 1. Continue amitriptyline 10 mg nightly-may increase as tolerated for headache control. 2. Headache diary Assessment & Plan (12/11/2019 5:03 PM CDT): Ms. Mccarty has a history of headaches that were under control after 1994 when she had a hysterectomy. She just recently started suffering from headaches in the temporal and right eye area as of September 2019. Her symptoms are consistent with that of temporal arteritis but her headaches could be a mix of sinus or migrainous headaches as well. She is having daily headaches that are not well controlled without a dose of prednisone which they are attempting to taper. Plan: 1. MRI and MRA for vascular and structural evaluation 2. Start amitriptyline 10mg HS and increase as tolerated for better headache control 3. Headache diary Immunizations Name Administration Dates Next Due Influenza, Quadrivalent, Rec ombinant, Egg Free, Preservative Free, Intramuscular 01/13/2019 Influenza, Trivalent, High D ose, Split, Preservative Free, Intramuscular 01/14/2018 Influenza, Whole 01/12/2017 ZOSTER LIVE 04/28/2012 Social History Tobacco Use Types Packs/Day Years Used Date Smoking Tobacco: Never Passive Smoke Exposure: Never Smokeless Tobacco: Never Tobacco Cessation:Counseling Given: Not Answered Alcohol Use Standard Drinks/Week Comments No 0 (1 standard drink = 0.6 oz pur e alcohol) AUDIT-C Answer Date Recorded Q1: How often do you have a drink containing alcohol? Never 11/10/2023 Q2: How many drinks containi ng alcohol do you have on a typical day when you are drinking? Patient does not drink Q3: How often do you have si x or more drinks on one occasion? Never 11/10/2023 Personal Safety Answer Date Recorded Have you ever been in or are you currently in a harmful physical or emotional relationship or is someone making you feel afraid or unsafe? Denies 09/08/2023 Comments No Sex and Gender Information Value Date Recorded Sex Assigned at Not on file Legal Sex Female 9:09 PM PUBLICITY DIRECTOR Gender Identity Not on file Sexual Orientation Not on file Last Filed Vital Signs Vital Sign Reading Time Taken Comments Blood Pressure 124/72 03/17/2024 8:01 AM PUBLICITY DIRECTOR Pulse 60 03/17/2024 8:01 AM PUBLICITY DIRECTOR Temperature 36.6 ??C (97.8 ??F) 02/15/2024 7:54 AM CS T Respiratory Rate 15 03/14/2024 12:57 PM PUBLICITY DIRECTOR Oxygen Saturation 97% 03/17/2024 8:01 AM PUBLICITY DIRECTOR Inhaled Oxygen Concentration - - Weight 59 kg (130 lb) 03/17/2024 8:01 AM PUBLICITY DIRECTOR Height 170.2 cm (5' 7 ) 03/17/2024 8:01 AM PUBLICITY DIRECTOR Body Mass Index 20.36 03/17/2024 8:01 AM PUBLICITY DIRECTOR Plan of Treatment Not on file Medical Devices Implanted Type Area [employer] 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 Device Identifier Shelf Expiration Date Model / Serial / Lot Hardware Lumbar-Sac ral Spine Joint Bilateral: Hip Description:bilateral hips r eplacement Wires Face Description:TMJ wires Procedures Procedure Name Priority Date/Time Associated Diagnosis Comments LIPID PANEL Routine 03/19/2023 6:58 AM PUBLICITY DIRECTOR Hyperlipidemia, unspecified hyperlipidemia type EGFR STAT 01/30/2022 8:44 PM CDT from Last 3 Months or Most Recently Relevant to Health Maintenance Results * (ABNORMAL) Lipid panel (03/19/2023 6:58 AM PUBLICITY DIRECTOR) Cholesterol 140 <200 mg/dL [facility] HDL 37(L) > OR = 50 mg/dL [facility] Triglycerides 102 <150 mg/dL [facility] LDL 83 mg/dL (calc) [facility] Comment: Reference range: <100 Desirable range <100 mg/dL for primary prevention; ?? <70 mg/dL for patients with CHD or diabetic patients with > or = 2 CHD risk factors. LDL-C is now calculated using the J Luis calculation, which is a validated novel method providing better accuracy than the Friedewald equation in the estimation of LDL-C. Andres SHEPARD et al. ANTELMO. 2013;310(19): 6752-2456 (http://education.Gen9.Nubli/faq/PQP239) Chol/HDL ratio 3.8 <5.0 (calc) [facility] Non-HDL, (LDL+VLDL) 103 <130 mg/dL (calc) [facility] Comment: For patients with diabetes plus 1 major ASCVD risk factor, treating to a non-HDL-C goal of <100 mg/dL (LDL-C of <70 mg/dL) is considered a therapeutic option. Blood 03/19/2023 6:58 AM PUBLICITY DIRECTOR 03/19/2023 6:59 AM PUBLICITY DIRECTOR us Dwight Champion MD LAB BLOOD ORDERABLES F inal Result [facility] [id number] [address] [place] [id number] * eGFR (01/30/2022 8:44 PM CDT) eGFR 84 mL/min/1. 73 m2 [facility] Comment: Interpretive Data Reference Interval Normal ?>/= 90 mL/min/1.73m2 Mildly decreased* ? 60 - 89 mL/min/1.73m2 Mildly to moderately decreased ?45 - 59 mL/min/1.73m2 Moderately to severely decreased ??30 - 44 mL/min/1.73m2 Severely decreased ?15 - 29 mL/min/1.73m2 Kidney Failure ?< 15 ??mL/min/1.73m2 *Relative to young adult level Estimated glomerular filtration rate is determined by the 2020 CKD-EPI equation recommended by the National Kidney Foundation (A Unifying Approach to GFR Estimation: Recommendations of the NKF-ASK Task Force on Reassessing the Inclusion of Race in Diagnosing Kidney Disease, JASN 2020). The CKD-EPI equation should not be used for patients with unstable renal function and has not been validated in children and those over 70. Current interpretive data was last reviewed 2021. Blood 01/30/2022 8:44 PM CDT 01/30/2022 8:57 PM CDT Maura Le MD LAB BLOOD ORDERABLES F inal Result [facility] [address] [place] [address] from Last 3 Months or Most Recently Relevant to Health Maintenance Insurance MEDICARE [facility] MEDICARE [facility] MEDICARE BLUE CROSS MEDICARE SUPPLEMENT Advance Directives For more information, please contact: [phone] * Full Code (Latest Code Status on File) Date Activated Date Inactivated Comments 01/10/2018 1:08 AM 01/10/2018 4:06 PM Care Teams Paint Line Production Supervisor Relationship Specialty Start Date End Date Kate Cid MD [facility] [place] [address] PCP - General Family Medicine 12/30/23 Sincere Goodwin MD Surgeon Vascular Surgery 01/10/18 [place] [address] [place] [address] Nurse Practitioner Pain Management 01/13/24
--- OUTSIDE RECORDS SUMMARY | 2024-05-10 03:30 | XMS_ITS | Encounter Summary ---
Author Organization [facility] Address [address] [place] [address] Phone Care Team Providers Care Network Systems Operator Name Role Phone Monica Forbes MD Primary Care Provider [phone] Ismael Cid MD Primary Care Provider [phone] Sincere Goodwin MD Unavailable Monica Forbes MD Primary Care Provider [phone] Florina Bailey DO Primary Care Provider + Kate Cid MD Primary Care Provider + Richard De La Torre NP Unavailable [phone] Encounter Details Date Type Department Care Team (Late st Contact Info) Description 10/19/2017 Telephone [facility] 8th [place] [address] [place] [id number] Angela Thornton Social History Tobacco Use Types Packs/Day Years Used Date Smoking Tobacco: Never Smokeless Tobacco: Never Alcohol Use Standard Drinks/Week Comments No 0 (1 standard drink = 0.6 oz pur e alcohol) Comments Unknown Sex and Gender Information Value Date Recorded Sex Assigned at Not on file Legal Sex Female 9:09 PM POWER DISTRIBUTION ENGINEER Gender Identity Not on file Sexual Orientation Not on file documented as of this encounter Plan of Treatment Not on file documented as of this encounter Visit Diagnoses Not on filedocumented in this encounter Care Teams Network Systems Operator Relationship Specialty Start Date End Date Monica Forbes MD [address] [place], [place] [id number] PCP - General 01/16/13 01/08/18 Ismael Cid MD [address] [place] [address] PCP - General Family Medicine 01/09/18 02/27/18 Monica Forbes MD [address] [place] [address] PCP - General Family Medicine 02/28/18 10/28/21 Florina Bailey DO [address] [place] [address] PCP - General Family Medicine 10/29/21 12/29/23 Kate Cid MD [address] [place] [address] [place] [address] PCP - General Family Medicine 12/30/23 Sincere Goodwin MD [address] [place] [address] Surgeon Vascular Surgery 01/10/18 [place] [address] [address] [place] [address] Nurse Practitioner Pain Management 01/13/24 documented as of this encounter
--- OUTSIDE RECORDS SUMMARY | 2024-05-10 03:30 | XMS_ITS | Encounter Summary ---
Author Organization [facility] Address [address] [address] Care Team Providers Care Rail Car Repairman Name Role Phone Monica Forbes MD Primary Care Provider [phone] Ismael Cid MD Primary Care Provider [phone] Sincere Goodwin MD Unavailable [phone] Monica Forbes MD Primary Care Provider [phone] Florina Bailey DO Primary Care Provider + Kate Cid MD Primary Care Provider + Richard De La Torre SHIPBOARD INTELLIGENCE ANALYST Unavailable [phone] Encounter Details Date Type Department Care Team (Latest Contact Info) Description 04/14/2016 Orders Only [facility] Cardiology ProviderEmelina MD [address] [place] [address] Social History Tobacco Use Types Packs/Day Years Used Date Smoking Tobacco: Never Alcohol Use Standard Drinks/Week Comments No 0 (1 standard drink = 0.6 oz pur e alcohol) Comments Unknown Sex and Gender Information Value Date Recorded Sex Assigned at Not on file Legal Sex Female 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 us Historical Provider [facility] MAYRA MACK Final Result documented in this encounter Visit Diagnoses Not on filedocumented in this encounter Care Teams Rail Car Repairman Relationship Specialty Start Date End Date Monica Forbes MD [address] [place] [address] PCP - General 01/16/13 01/08/18 Ismael Cid MD [address] [place] [address] PCP - General Family Medicine 01/09/18 02/27/18 Monica Forbes MD [address] [place] [address] PCP - General Family Medicine 02/28/18 10/28/21 Florina Bailey DO [address] [place] [address] PCP - General Family Medicine 10/29/21 12/29/23 Kate Cid MD [address] [place] [address] [place] [address] PCP - General Family Medicine 12/30/23 Sincere Goodwin MD [address] [place] [address] Surgeon Vascular Surgery 01/10/18 Richard De La Torre SHIPBOARD INTELLIGENCE ANALYST [address] [address] [place] [address] Nurse Practitioner Pain Management 01/13/24 documented as of this encounter
--- OUTSIDE RECORDS SUMMARY | 2024-05-10 03:31 | XMS_ITS | Clinical Summary ---
Author Organization [facility] Address [address] [place] [address] Phone Care Team Providers Care Lock Operator Name Role Phone Charles Forbes MD Primary Care Provider Social History Tobacco Use Types Packs/Day Years Used Date Smoking Tobacco: Never Assessed Comments Unknown Sex and Gender Information Value Date Recorded Sex Assigned at Not on file Legal Sex Female 4:46 AM VOCATIONAL EVALUATOR Gender Identity Not on file Sexual Orientation Not on file Plan of Treatment Health Maintenance Due Date Last Done Comments DTAP/TDAP/TD VACCINES (1 - Tdap) 12/19/1962 PNEUMOCOCCAL VACCINE 65+ YEARS (1 of 1 - PCV) 12/19/18 94 ZOSTER VACCINE (1 of 2) 12/19/1993 OSTEOPOROSIS SCREENING 12/19/2008 RSV VACCINE (60+ or ) (1 - 1-dose 75+ series) 12/19/2018 INFLUENZA VACCINE (#1) 2023 Insurance MEDICARE PART A AND B [facility] [place] [address] Care Teams Lock Operator Relationship Specialty Start Date End Date Charles Forbes MD [address] [place] [address] PCP - General Family Practice 09/04/09
--- OUTSIDE RECORDS SUMMARY | 2024-05-10 03:31 | XMS_ITS | Encounter Summary ---
Author Organization [facility] Address [address] [place] [address] Care Team Providers Care Aircraft Mechanic Electrical And Radio Name Role Phone Charles Forbes MD Primary Care Provider [phone] Encounter Details Date Type Department Care Team (Late st Contact Info) Description 08/07/2004 Outpatient Historical [facility] Support Serv. (Adt Cardiology-[facility]) [address] [place] [address] Rodrigo Thakkar Social History Tobacco Use Types Packs/Day Years Used Date Smoking Tobacco: Never Assessed Comments Unknown Sex and Gender Information Value Date Recorded Sex Assigned at Not on file Legal Sex Female 4:46 AM CANDY PULLER Gender Identity Not on file Sexual Orientation Not on file documented as of this encounter Plan of Treatment Not on file documented as of this encounter Visit Diagnoses Not on filedocumented in this encounter Care Teams Aircraft Mechanic Electrical And Radio Relationship Specialty Start Date End Date Charles Forbes MD [address] [place] [address] PCP - General Family Practice 09/04/09 documented as of this encounter
--- OUTSIDE RECORDS SUMMARY | 2024-05-10 03:31 | XMS_ITS | Clinical Summary ---
Author Organization [facility] Address [address] [place] [address] Care Team Providers Care Power Systems Engineer Name Role Phone Unavailable Primary Care Provider Unavailabl e Allergies Active Allergy Reactions Criticality Noted Date Comments Hydrocodone Low 04/22/2016 Other reaction(s): Stomach upset nausea Sulfa Antibiotics Medium 11/21/2014 Other reaction(s): Urticaria red welts Medications Apixaban (ELIQUIS) 2.5 MG tablet tablet Take 1 tablet (2.5 mg total) by mouth 2 (two) times a day. 60 tablet 04/29/2017 Active loratadine (CLARITIN) 10 MG tablet Take 1 tablet (10 mg total) by mouth once a day. 30 tablet 04/29/2017 Active atorvastatin (LIPITOR) 40 MG tablet Take 1 tablet (40 mg total) by mouth nightly. 30 tablet 04/29/2017 Active nadolol (CORGARD) 40 MG tablet Take 1 tablet (40 mg total) by mouth once a day. 30 tablet 04/29/2017 Active lactulose (CHRONULAC) 10 GM/15ML solution Take 30 mL (20 g total) by mouth daily as needed (constipati on). 473 mL 04/29/2017 Active senna-docusate (SENOKOT-S) 8.6-50 MG Take 1 tablet by mouth 2 (two) times a day. 60 tablet 04/29/2017 Active famotidine (PEPCID) 20 MG tablet Take 1 tablet (20 mg total) by mouth 2 (two) times a day. 60 tablet 04/29/2017 Active Active Problems Problem Noted Date Diagnosed Date Primary osteoarthritis of right hip 04/24/2017 Insomnia Hypertensive disorder Overview (04/28/2017): Last Assessment & Plan: Blood pressure is not well controlled. I advised her to increase lisinopril to 20 mg daily by doubling up on her 10 mg pills. She has an appointment later this month with Dr. Forbes, so he can follow up on how her blood pressure is doing with this. Hyperlipidemia Overview (04/29/2017): Last Assessment & Plan: On chronic lipid lowering therapy with good control. No changes made. Gastroesophageal reflux disease Diabetes mellitus Overview (04/29/2017): Overview: diet controlled. 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 With her upcoming surgery, will obtain a pharmacologic MPI for preoperative clearance. Immunizations Immunization Administration Dates Next Due Influenza Whole 01/12/2017 Family History Medical History Relation Name Comments Rheum arthritis Mother Relation Name Status Comments Mother Social History Tobacco Use Types Packs/Day Years Used Date Smoking Tobacco: Never Smokeless Tobacco: Never Alcohol Use Standard Drinks/Week Comments No 0 (1 standard drink = 0.6 oz pur e alcohol) Comments Unknown Sex and Gender Information Value Date Recorded Sex Assigned at Not on file Legal Sex Female 3:53 PM EST Gender Identity Not on file Sexual Orientation Not on file Last Filed Vital Signs Vital Sign Reading Time Taken Comments Blood Pressure 120/69 04/29/2017 7:30 AM NUDE MODEL Pulse 82 04/29/2017 7:30 AM NUDE MODEL Temperature 36.4 ??C (97.6 ??F) 04/29/2017 7:30 AM CS T Respiratory Rate 18 04/29/2017 7:30 AM NUDE MODEL Oxygen Saturation 100% 04/29/2017 7:30 AM NUDE MODEL Inhaled Oxygen Concentration - - Weight 75.3 kg (166 lb) 04/29/2017 5:33 AM NUDE MODEL Height 170.2 cm (5' 7 ) 04/25/2017 5:55 AM NUDE MODEL Body Mass Index 26 04/25/2017 5:55 AM NUDE MODEL Plan of Treatment Not on file Advance Directives * Full Resuscitation (Latest Code Status on File) Date Activated Date Inactivated Comments 04/24/2017 8:45 PM 04/29/2017 4:42 PM
--- OUTSIDE RECORDS SUMMARY | 2024-05-10 03:31 | XMS_ITS | Clinical Summary ---
Author Organization [facility] Address [address] [facility] [place] [address] Care Team Providers Care Disability Liaison Officer Name Role Phone Katerine Caro MD Unavailable [phone] Kate Cid MD Primary Care Provider [phone] Source Comments [facility],non-owned Affiliates and Associated Physician Practices is amultiple site organization consisting of ambulatory clinics and hospital sitesin [place], [place], [place] and [place]. This disclosure is being madepursuant to the Care Everywhere program and may not contain all information available regarding this patient. Last updated 17.[facility] Allergies Active Allergy Reactions Criticality Noted Date Comments Hydrocodone GI Discomfort Low 04/22/2016 nausea Other reaction(s): Stomach upset nausea Sulfa Antibiotics Unknown Medium 11/21/2014 Other reaction(s): Urticaria red welts Sulfa Drugs Urticaria,Unknown Medium 11/21/2014 red welts Other reaction(s): Urticaria red welts Medications * Be aware that medications may not be up to date on this document. Alwaysverify current medications with the patient. Medication Sig Dispensed Refills Start Date End Date Status zolpidem (AMBIEN) 5 MG tabletIndications:Rota tor cuff syndrome, right,Pain in joint, shoulder region, right,Cervicalgia,Cerv ical radicular pain,DJD (degenerative joint disease), cervical,Partial tear of rotator cuff,Labral tear of shoulder, right, sequela Take 1 (one) tablet by mouth at bedtime 11/02/2014 Active atorvastatin (LIPITOR) 40 MG tablet Take 1 (one) tablet by mouth daily with lunch 01/06/2016 Active lisinopril (PRINIVIL; ZESTRIL) 10 MG tablet Take 1 (one) tablet by mouth once daily Active verapamil SR 24hr (VERELAN) 120 MG capsule Active pantoprazole EC (Protonix) 40 MG tablet Take 1 (one) tablet by mouth once daily Active NADOLOL PO Active metFORMIN ER 24hr (Glucophage XR) 500MG tablet Take 1 (one) tablet by mouth daily with dinner Active amitriptyline (Elavil) 10 MG tablet Take 1 (one) tablet by mouth at bedtime Active famotidine (Pepcid) 20 MG tablet Active magnesium 250 MG tablet Take 1 (one) tablet by mouth once daily Active ALPRAZolam (Xanax) 0.5 MG tablet as needed 12/31/2022 Active Active Problems Problem Noted Date Diagnosed Date Varicose veins of bilateral lower extremities wi th pain 10/03/2018 PAD (peripheral artery disease) 04/13/2018 Primary osteoarthritis of right hip 04/21/2017 Primary osteoarthritis of left hip 04/22/2016 HTN (hypertension) 04/22/2016 High cholesterol 04/22/2016 GERD (gastroesophageal reflux disease) 7 Diabetes mellitus 04/22/2016 Overview (04/22/2016): diet controlled. checks blood sugar 2-3 times per week Insomnia 04/22/2016 Family History Medical History Relation Name Comments Arthritis - Rheumatoid Mother Arthritis - Rheumatoid Sister 2 Relation Name Status Comments Brother Alive Father Mother Sister 1 Alive Sister 2 Social History Tobacco Use Types Packs/Day Years Used Date Smoking Tobacco: Never Smokeless Tobacco: Never Tobacco Cessation:Counseling Given: No Alcohol Use Standard Drinks/Week Comments No 0 (1 standard drink = 0.6 oz pur e alcohol) PHQ-2 Answer Date Recorded Patient Health Questionnaire-2 Score 0 02/04/2024 Sex and Gender Information Value Date Recorded Sex Assigned at Not on file Gender Identity Not on file Sexual Orientation Not on file Last Filed Vital Signs Vital Sign Reading Time Taken Comments Blood Pressure 140/72 02/04/2024 9:54 AM CDT Pulse 62 02/04/2024 9:54 AM CDT Temperature 36.8 ??C (98.2 ??F) 04/13/2018 10:[address] Respiratory Rate 18 04/24/2017 3:34 PM INSURANCE VERIFICATION CLERK Oxygen Saturation 97% 02/04/2024 9:54 AM CDT Inhaled Oxygen Concentration - - Weight 59.1 kg (130 lb 6.4 oz) 02/04/2024 9:54 A M CDT Height 170.2 cm (5' 7 ) 02/04/2024 9:54 AM CDT Body Mass Index 20.42 02/04/2024 9:54 AM CDT Plan of Treatment Upcoming Encounters Date Type Department Care Team (Late st Contact Info) Description 08/18/2024 10:00 AM CDT Office Visit [facility] - Endocrinology [address] [place] [address] Anup James MD [address] [place] [address] Health Maintenance Due Date Last Done Comments BONE DENSITY TESTING 1945 MEDICARE AWV ? 12 MONTHS 1945 DTAP/TDAP/TD VACCINES (1 - Tdap) 12/19/1962 PNEUMOCOCCAL VACCINE 50+ (1 of 2 - PCV) 12/19/1962 ZOSTER VACCINE (1 of 2) 12/19/1993 DIABETES RETINOPATHY SCREENING 09/29/2018 Respiratory Syncytial Virus (RSV) Vaccine Pt: or over 60 yrs (1 - 1-dose 75+ series) 12/19/2018 COVID-19 VACCINE (1 - 2023- season) 2023 INFLUENZA VACCINE (#1) 2023 01/13/2019, 2017 DIABETES-SERUM CREATININE 02/03/20242022, 01/30/2022, 01/30/2022, Additional history exists DEPRESSION SCREENING 04/12/2024 02/04/2024 DIABETES - URINE PROTEIN SCREENING 04/12/2024 02/02/2023 DIABETES-HGB A1C 08/04/2024 02/04/2024, , 04/23/2016 DIABETES-FOOT EXAM WITH MONOFILAMENT 02/03/2025 02/04/2024 HEPATITIS B VACCINE Aged Out No longe r eligible based on patient's age to complete this topic HIB VACCINE Aged Out No longer eligi ble based on patient's age to complete this topic HPV VACCINE Aged Out No longer eligi ble based on patient's age to complete this topic MENINGOCOCCAL (Group B) VACCINE Aged Out No longer eligible based on patient's age to complete this topic MENINGOCOCCAL VACCINE Aged Out No shree anival eligible based on patient's age to complete this topic Medical Devices Implanted Type Area Milanese Knitting Machine Operator Device Identifier Shelf Expiration Date Model / Serial / Lot Acetabular Shell 52mm X 46mm Implanted:Qty: 1 on 04/22/2016 by Wang Fuentes MD at [facility] [facility] Left: Hip [employer] [id number] 11/18/2025 [id number] / / [id number] Modular Head Standard Neck Implanted:Qty: 1 on 04/22/2016 by Wang Fuentes MD at [facility] [facility] Left: Hip [employer] [id number] 03/07/2026 [id number] / / [id number] Stem Fem 111mm Ty 1 Pps Tprlk Implanted:Qty: 1 on 04/22/2016 by Wang Fuentes MD at [facility] [facility] Left: Hip [employer] 03/19/2026 [id number] / / [id number] Dual Mobility Bearing E1 Antioxidant 28mm Implanted:Qty: 1 on 04/22/2016 by Wang Fuentes MD at [facility] Left: Hip [employer] 02/23/2021 [id number] / / [id number] Cup Actb 52mm 46mm M2a Mg Trspk Hip Strl Implanted:Qty: 1 on 04/21/2017 by Wang Fuentes MD at [facility] [facility] Right: Hip [employer] 12/12/2019 [id number] / / [id number] Head Fem Std Ofst 28mm Hip Ty 1 Cocr G7 Implanted:Qty: 1 on 04/21/2017 by Wang Fuentes MD at [facility] [facility] Right: Hip [employer] 02/25/2027 [id number] / / [id number] Stem Fem 109mm Ty 1 Pps Tprlk Implanted:Qty: 1 on 04/21/2017 by Wang Fuentes MD at [facility] [facility] Right: Hip [employer] 01/19/2027 [id number] / / [id number] Dual Mobility Bearing Implanted:Qty: 1 on 04/21/2017 by Wang Fuentes MD at [facility] Right: Hip [employer] 07/30/2021 [id number] / / [id number] Procedures Procedure Name Priority Date/Time Associated Diagnosis Comments HEMOGLOBIN A1C - POINT OF CARE (AMB) Routine 02/04/2024 10:21 AM CDT Type 2 diabetes mellitus without complication, without long-term current use of insulin (HCC) MICROALB/CREAT RATIO URINE RANDOM PANEL Routine 02/02/2023 7:32 AM CDT Type 2 diabetes mellitus without complication, without long-term current use of insulin (HCC) BASIC METABOLIC PANEL (CALCIUM TOTAL) Routine 02/02/2023 7:32 AM CDT Type 2 diabetes mellitus without complication, without long-term current use of insulin (HCC) from Last 3 Months or Most Recently Relevant to Health Maintenance Results * HEMOGLOBIN A1C - POINT OF CARE (AMB) (02/04/2024 10:21 AM CDT) [facility] Hemoglobin A1c POCT 5.8 % Expiration Date 12/01 Lot # [id number] QC Verified Yes Yes Blood BLOOD SPECIMEN / Unknown 02/04/2024 10:21 AM CDT Anup James MD LAB - POINT OF CARE ORDERABLES * MICROALB/CREAT RATIO URINE RANDOM PANEL (02/02/2023 7:32 AM CDT) Pathologist [facility] Creatinine Urine 80 20 - 275 mg/dL [facility] Microalbumin Urine 0.4 mg/dL [facility] Comment: Reference Range Not established Microalbumin/Creat inine Ratio 5 <30 mcg/mg creat [facility] Comment: The ADA defines abnormalities in albumin excretion as follows: Albuminuria Category ?Result (mcg/mg creatinine) Normal to Mildly increased ?? <30 Moderately increased ? 30-299 Severely increased ? > OR = 300 The ADA recommends that at least two of three specimens collected within a 3-6 month period be abnormal before considering a patient to be within a diagnostic category. Test Performed at: [facility] [place], [place] ??[id number] VIKKI ANDREW MD Urine URINE SPECIMEN OBTAINED BY CLEAN CATCH PROCEDURE / Unknown 02/02/2023 7:32 AM CDT 02/02/2023 7:33 AM CDT Anup James MD LAB - URINE CHEMISTR Y ORDERABLES Performing Organization Address City/State/[facility] Co de Phone Number [facility] [address] [place] [address] * (ABNORMAL) BASIC METABOLIC PANEL (BMP) (02/02/2023 7:32 AM CDT) Glucose 104(H) 65 - 99 mg/dL [facility] Comment: ? Fasting reference interval For someone without known diabetes, a glucose value between 100 and 125 mg/dL is consistent with prediabetes and should be confirmed with a follow-up test. BUN 13 7 - 25 mg/dL [facility] Creatinine 0.74 0.60 - 1.00 mg/dL [facility] eGFR by Cystatin C 82 > OR = 60 mL/min/1. 73m2 [facility] BUN/Creatinine Ratio SEE NOTE: 6 22 (calc) [facility] Comment: ?? Not Reported: BUN and Creatinine are within ?? reference range. ? Sodium 140 135 - 146 mmol/L [facility] Potassium 4.7 3.5 - 5.3 mmol/L [facility] Chloride 103 98 - 110 mmol/L [facility] CO2 28 20 - 32 mmol/L [facility] Calcium 9.6 8.6 - 10.4 mg/dL [facility] Comment: REPORT COMMENT: FASTING:YES Test Performed at: [facility] [place], [place] ??[phone] VIKKI ANDREW MD Blood BLOOD SPECIMEN / Unknown 02/02/2023 7:32 AM CDT 02/02/2023 7:33 AM CDT Anup James MD LAB - CHEMISTRY [facility] Organization Address City/State/ZIP Co de Phone Number [facility] [phone] [place] [address] from Last 3 Months or Most Recently Relevant to Health Maintenance Advance Directives Documents on File Type Date Recorded Patient Account Classification Clerk Expl anation Adv Directive/Living Will/POA 04/27/2016 6:52 PM * Full Code (Latest Code Status on File) Date Activated Date Inactivated Comments 04/27/2017 10:17 AM 04/29/2017 3:03 PM * Full Code Date Activated Date Inactivated Comments 04/21/2017 5:21 PM 04/24/2017 7:21 PM * Full Code Date Activated Date Inactivated Comments 04/22/2016 5:22 PM 04/25/2016 2:27 PM Care Teams Disability Liaison Officer Relationship Specialty Start Date End Date Kate Cid MD [address] [place] [id number] PCP - General Family Medicine 02/04/24 [place] [address] [address] [address] Orthopedic Surgery 12/18/14
--- OUTSIDE RECORDS SUMMARY | 2024-05-10 03:31 | XMS_ITS | Clinical Summary ---
Author Organization [facility] D Address [address] [place] [id number] Care Team Providers Care Senior Clinical Data Manager Name Role Phone Sincere Goodwin MD Unavailable [phone] Kate Cid MD Primary Care Provider + Richard De La Torre NP Unavailable [phone] Allergies Active Allergy Reactions Criticality Noted Date [...] tablet (500 mg total) by mouth daily 05/26/202 2 Active atorvastatin (LIPITOR) 40 mg tablet [...] age and lifestyle for her orthopedic procedure. Aceveod's esophagus without dysplasia 10/28/2021 Chronic daily headache 12/11/2019 Assessment & Plan (11/10/2023 10:31 AM CDT): The patient is doing very well on her current medications for headache. There was no evidence on exam of temporal arteritis. Continue amitriptyline 3 times a week. Side effects reviewed. Follow up in one year. Assessment & Plan (03/18/2020 3:03 PM RN [facility]): We will continue to monitor her headache pattern. We will consider surgical, if the patient is to clinically decompensate or the clinical course is suggestive of such testing. PMR (polymyalgia rheumatica) ([facility]) 0 Assessment & Plan (12/11/2019 5:04 [...] artery disease of n ative artery of [place] heart with stable angina pectoris (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 With her upcoming surgery, will obtain a pharmacologic MPI for preoperative clearance. Assessment & Plan (03/17/2024 8:24 AM RN [facility]): Previously characterized as mild. He had not been taking an aspirin due to a possible allergy but now reports she was tolerating a leave on a p.r.n. basis so reasonable to consider her for daily aspirin use. Continue atorvastatin. Assessment & Plan (03/10/2023 1:46 PM RN [facility]): Previously characterized as mild. Continue atorvastatin. Possible risk of allergic reaction to aspirin. Assessment & Plan (01/02/2022 3:36 PM CDT): Previously characterized as mild. No symptoms on her current medical regimen. Stopped aspirin and Lipitor for unclear reasons. Assessment & Plan (02/28/2019 1:32 PM RN [facility]): Mild coronary artery disease, asymptomatic. She is no longer on aspirin because of being on Eliquis. She has a history of microvascular angina which is quiescent on verapamil. If any back surgery is necessary, she is cleared. Assessment & Plan (02/28/2018 2:01 PM RN [facility]): Asymptomatic. 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 Assessment & Plan (03/10/2023 1:47 PM RN [facility]): Currently well controlled. Continue current prescription medications. Assessment & Plan (01/02/2022 3:48 PM CDT): Controlled. Continue current prescription medications. Assessment & Plan (02/27/2021 2:57 PM RN [facility]): Blood pressure is controlled on her current regimen of Nadolol 40 mg daily and verapamil 120 mg daily. Assessment & Plan (02/27/2020 12:10 PM RN [facility]): Blood pressure is adequately controlled on current regimen. No change was made. Assessment & Plan (02/28/2019 1:31 PM RN [facility]): Blood pressure is adequately controlled on current regimen. No change was made. Assessment & Plan (02/28/2018 2:03 PM RN [facility]): Blood pressure is adequately controlled on current regimen. No change was made. Assessment & Plan (02/22/2017 6:37 PM RN [facility]): Blood pressure is not well controlled. I [...] made. Assessment & Plan (03/10/2023 1:46 PM RN [facility]): Lipid panel far out of range. Her total triglycerides are greater than 650. She does have a history of diabetes but to what extent it is controlled is unclear to me. Will obtain a fasting lipid panel for further clarity. Assessment & Plan (02/27/2021 2:58 PM RN [facility]): Continue atorvastatin Assessment & Plan (02/27/2020 12:10 PM RN [facility]): On chronic lipid lowering therapy with good control. No changes made. Assessment & Plan (02/28/2019 1:31 PM RN [facility]): On chronic lipid lowering therapy with good control. No changes made. Assessment & Plan (02/28/2018 2:02 PM RN [facility]): LDL today is significantly higher than last year. She admits that she has not been taking her atorvastatin faithfully because she ? gets tired of taking medicine? . I reviewed with her last year's results and this year's results and encouraged her to take it daily as prescribed. Assessment & Plan (02/22/2017 6:38 PM RN [facility]): On chronic lipid lowering therapy with good control. No changes made. 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 checks blood sugar 2-3 times per week Primary osteoarthritis of left hip 04/22/2016 Microvascular angina 02/12/2014 Overview (07/16/2016): Angina Assessment & Plan (03/17/2024 8:24 AM RN [facility]): Diagnosis not well established but no symptoms on verapamil. Continue. Assessment & Plan (03/10/2023 1:47 PM RN [facility]): Unclear how this was formally documented however she is doing well on her current regimen will not make any adjustments at this time. Assessment & Plan (02/27/2021 2:56 PM RN [facility]): Asymptomatic. She has been on verapamil for a long time for this, and it appears to be working. She is not on aspirin because of being on Eliquis. Assessment & Plan (02/27/2020 12:10 PM RN [facility]): Asymptomatic on beta-holly therapy. Bleeding internal hemorrhoids 07/25/2010 Elevated d-dimer Pain of right lower extremity Resolved Problems Problem Noted Date Diagnosed Date Resolved Date Headache disorder 12/11/2019 11/10/2023 Assessment & Plan (03/12/2023 1:24 PM RN [facility]): Ms. Mccarty has history of headaches that [...] months Assessment & Plan (02/26/2021 11:41 AM RN [facility]): Ms. Mccarty has history of headaches that [...] months Assessment & Plan (03/18/2020 3:01 PM RN [facility]): Ms. Mccarty has history of headaches that [...] for better headache control 3. Headache diary Encounters Date Type Department Care Team Description 03/17/2024 8:00 AM RN [facility] Office Visit [facility] [address] [place] [address] Dwight Champion MD Coronary artery disease of [place] artery of [place] heart with stable angina pectoris (CMS/HCC) (HCC) (Primary Dx); Microvascular angina (HCC) 03/14/2024 12:44 PM RN [facility] - 03/14/2024 11:59 PM RN [facility] Hospital Encounter [facility] [address] [place] [address] Richard De La Torre NP Spondylosis of lumbar region without myelopathy or radiculopathy (Primary Dx); Cervicalgia; Sacroiliitis (HCC); Myofascial pain; Myalgia Discharge Disposition: Discharge to home or self care 02/15/2024 7:35 AM RN [facility] - 02/15/2024 11:59 PM RN [facility] Hospital Encounter [facility] [address] [place] [id number] Richard De La Torre NP Right shoulder pain, unspecified chronicity; Myofascial pain Discharge Disposition: Discharge to home or self care 02/08/2024 1:05 PM CDT - 02/08/2024 11:59 PM CDT Hospital Encounter [facility] [address] [place] [id number] Richard De La Torre NP Right shoulder pain, unspecified chronicity (Primary Dx); Myofascial pain; Cervicalgia; Myalgia Discharge Disposition: Discharge to home or self care from Last 3 Months Immunizations Name Administration Dates Next Due Influenza, Quadrivalent, Rec ombinant, Egg Free, Preservative Free, Intramuscular 01/13/2019 Influenza, Trivalent, High D ose, Split, Preservative Free, Intramuscular 01/14/2018 Influenza, Whole 01/12/2017 ZOSTER LIVE 04/28/2012 Surgical History Surgery Date Site/Laterality Comments TOTAL ABDOMINAL HYSTERECTOMY W/ BILATERAL SALPINGOOPHORECTOMY Hysterectomy, ADRIANNA, with BSO CHOLECYSTECTOMY Cholecystectomy CATARACT EXTRACTION Left Cataract Surgery BACK SURGERY 04/12/2010 - 04/11/2011 back surgery HIP SURGERY TOTAL HIP ARTHROPLASTY Bilateral 2015, 2016 HM DNA STOOL 07/20/2022 Negative UPPER GASTROINTESTINAL ENDOSCOPY 03/01/2020 Acevedo's esophagus without dysplasia Medical History Medical History Date Comments Hypertension Borderline diabetes not medicate d HLD (hyperlipidemia) CAD (coronary artery disease) Pancreatic cyst Diabetes mellitus (HCC) Varicose veins of bilateral lower extremities with pain 10/03/2018 PAD (peripheral artery disease) (HCC) 04/13/2018 Microvascular angina (HCC) 02/12/2014 Angin a ?? Hyperlipidemia 02/22/2017 Overview: Last A ssessment & Plan: On chronic lipid lowering therapy with good control. No changes made. Essential hypertension 02/22/2017 Overview: Last Assessment & Plan: Blood pressure is not well controlled. I advised her to increase lisinopril to 20 mg daily by doubling up on her 10 mg pills. She has an appointment later this month with Dr. Forbes, so he can follow up on how her blood pressure is doing with this. Coronary artery disease of n ative artery of [place] heart with stable angina pectoris ([facility]) (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 With her upcoming surgery, will obtain a pharmacologic MPI for preoperative clearance. 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 10/28/2021 PMR (polymyalgia rheumatica) ([facility]) ([facility]) 12/11/2019 Bilateral sacroiliitis ([facility]) 08/10/2023 Arthritis 10/25/2017 Cervicalgia 08/10/2023 Headache disorder 12/11/2019 Spondylosis of lumbar region without myelopathy or radiculopathy 08/10/2023 Insomnia 10/25/2017 Family History Medical History Relation Name Comments No Known Problems Brother 2 No Known Problems Father Tristian No Known Problems Mother Leyla No Known Problems Sister 2 Relation Name Status Comments Brother 2 Alive Father Tristian Mother Leyla Sister 2 Alive Social History Tobacco Use Types Packs/Day Years [...] on file Legal Sex Female 9:09 PM RN [facility] Gender Identity Not on file Sexual Orientation Not on file Obstetrics History Last Filed Vital Signs Vital Sign Reading Time Taken Comments Blood Pressure 124/72 03/17/2024 8:01 AM RN [facility] Pulse 60 03/17/2024 8:01 AM RN [facility] Temperature 36.6 ??C (97.8 ??F) 02/15/2024 7:54 AM CS T Respiratory Rate 15 03/14/2024 12:57 PM RN [facility] Oxygen Saturation 97% 03/17/2024 8:01 AM RN [facility] Inhaled Oxygen Concentration - - Weight 59 kg (130 lb) 03/17/2024 8:01 AM RN [facility] Height 170.2 cm (5' 7 ) 03/17/2024 8:01 AM RN [facility] Body Mass Index 20.36 03/17/2024 8:01 AM RN [facility] Plan of Treatment Health Maintenance Due Date Last Done Comments Albumin Creatinine Ratio, Urine 1943 Depression Screening 1945 Hemoglobin A1C 1943 Osteoporosis Screening-Bone Density Scan 1943 Dilated Eye Exam 1943 Foot Exam 1943 Pneumococcal vaccine 65+ (1 of 2 - PCV) 12/19/1949 DTaP/Tdap/Td Vaccine (1 - Tdap) 12/19/1954 Hepatitis B Screening 12/19/1961 Well Visit 65+ 12/19/2008 Zoster Vaccine (2 of 3) 06/23/2012 04/28/2012 eGFR 01/30/2023 01/30/2022, 03/0 11/2020, 03/29/2020, Additional history exists Influenza Vaccine (#1) 2023 9, 01/14/2018, 01/12/2017 Lipid Panel 03/19/2024 03/19/2023, 09/2 06/2021, 02/27/2020, Additional history exists Fall Risk Assessment 03/14/2025 03/14/2024 Medical Devices Implanted Type [facility] Coordinator Device Identifier Shelf Expiration Date Model / Serial / Lot Hardware Lumbar-Sac ral Spine Joint Bilateral: Hip Description:bilateral hips r eplacement Wires Face Description:TMJ wires Procedures Procedure Name Priority Date/Time Associated Diagnosis Comments LIPID PANEL Routine 03/19/2023 6:58 AM RN [facility] Hyperlipidemia, unspecified hyperlipidemia type EGFR STAT 01/30/2022 8:44 PM CDT from Last 3 Months or Most Recently Relevant to Health Maintenance Results * (ABNORMAL) Lipid panel (03/19/2023 6:58 AM RN [facility]) Cholesterol 140 <200 mg/dL [facility] [...] LDL-C. Andres SHEPARD et al. ANTELMO. 2013;310(19): 1285-6741 (http://education.[place]/faq/FAH462) Chol/HDL ratio 3.8 <5.0 (calc) [facility] Non-HDL, (LDL+VLDL) 103 <130 mg/dL (calc) [facility] Comment: For patients with diabetes plus 1 major ASCVD risk factor, treating to a non-HDL-C goal of <100 mg/dL (LDL-C of <70 mg/dL) is considered a therapeutic option. Blood 03/19/2023 6:58 AM RN [facility] 03/19/2023 6:59 AM RN [facility] us Dwight Champion MD LAB BLOOD ORDERABLES F inal Result [facility] [address] [address] [id number] * eGFR (01/30/2022 8:44 PM CDT) Pathologist [facility] eGFR 84 mL/min/1. 73 m2 [facility] Comment: Interpretive Data Reference Interval Normal [...] 8:44 PM CDT 01/30/2022 8:57 PM CDT us Maura Le MD LAB BLOOD ORDERABLES F inal Result [facility] [address] Department [place] [address] from Last 3 Months or Most Recently Relevant to Health Maintenance Insurance MEDICARE [facility] MEDICARE [facility] MEDICARE [facility] MEDICARE SUPPLEMENT Advance Directives For more information, please contact: [phone] * Full Code (Latest Code Status on File) Date Activated Date Inactivated Comments 01/10/2018 1:08 AM 01/10/2018 4:06 PM Care Teams Senior Clinical Data Manager Relationship Specialty Start Date End Date Kate Cid MD [facility] [place] [address] PCP - General Family Medicine 12/30/23 Sincere Goodwin MD Surgeon Vascular Surgery 01/10/18 [place] [address] [address] [place] [address] Nurse Practitioner Pain Management 01/13/24
--- OUTSIDE RECORDS SUMMARY | 2024-05-10 03:31 | XMS_ITS | Encounter Summary ---
Author Organization [employer] Address 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 Gender Identity Not on file Sexual Orientation Not on file documented as of this encounter Plan of Treatment Not on file documented as of this encounter Procedures Procedure Name Priority Date/Time Associated Diagnosis Comments HEMOGLOBIN AND HEMATOCRIT Routine 08/07/2004 8:45 AM CDT BASIC METABOLIC PANEL Routine 08/07/2004 8:45 AM CDT documented in this encounter Results * HEMOGLOBIN AND HEMATOCRIT (08/07/2004 8:45 AM CDT) HEMOGLOBIN 14.5 11.8 - 14.8 g/dL INTERFACE SYSTEM HEMATOCRIT 43.5 35.5 - 44.0 % INTERFACE SYSTEM 08/07/2004 8:45 AM CDT us Matt aJy MD HEMATOLOGY ORDERABLES Final Result INTERFACE SYSTEM Refer to clinic/hospital department * (ABNORMAL) BASIC METABOLIC PANEL (08/07/2004 8:45 AM CDT) GLUCOSE 153(H) 65 - 109 mg/dL INTERFACE SYSTEM CREATININE 0.9 0.4 - 1.2 mg/dL INTERFACE SYSTEM CALCIUM 9.2 8.6 - 10.2 mg/dL INTERFACE SYSTEM BUN 16 6 - 20 mg/dL INTERFACE SYSTEM SODIUM 140 135 - 145 mmol/L INTERFACE SYSTEM POTASSIUM 3.9 3.5 - 4.9 mmol/L INTERFACE SYSTEM CHLORIDE 103 96 - 108 mmol/L INTERFACE SYSTEM CO2 27 22 - 30 mmol/L INTERFACE SYSTEM 08/07/2004 8:45 AM CDT us Matt Jay MD CHEMISTRY ORDERABLES Final R esult INTERFACE SYSTEM Refer to clinic/hospital department documented in this encounter Visit Diagnoses Diagnosis Prepatellar bursitis- Primary documented in this encounter Care Teams Principal Network Architect Relationship Specialty Start Date End Date Charles Forbes MD [address] [place] [id number] PCP - General Family Practice 09/04/09 documented as of this encounter
--- OUTSIDE RECORDS SUMMARY | 2024-05-10 03:31 | XMS_ITS | Patient Health Summary ---
Author Organization [facility] Address [address] [place] [address] Care Team Providers Care Federal Mediation Commissioner Name Role Phone Katerine Caro MD Unavailable [phone] Kate Cid MD Primary Care Provider [phone] [facility],non-owned Affiliates and Associated Physician Practices is amultiple site organization consisting of ambulatory clinics and hospital sitesin [place], [place], [place] and [place]. This disclosure is being madepursuant to the Care Everywhere program and may not contain all information available regarding this patient. Last updated 17.[facility] Allergies * Hydrocodone(GI Discomfort) -Low Criticality * Sulfa Antibiotics(Unknown) -Medium Criticality * Sulfa Drugs(Urticaria,Unknown) -Medium Criticality Medications * Be aware that medications may not be up to date on this document. Alwaysverify current medications with the patient. * zolpidem (AMBIEN) 5 MG tablet(Started 11/02/2014) Take 1 (one) tablet by mouth at bedtime * atorvastatin (LIPITOR) 40 MG tablet(Started 01/06/2016) Take 1 (one) tablet by mouth daily with lunch * lisinopril (PRINIVIL; ZESTRIL) 10 MG tablet Take 1 (one) tablet by mouth once daily * verapamil SR 24hr (VERELAN) 120 MG capsule * pantoprazole EC (Protonix) 40 MG tablet Take 1 (one) tablet by mouth once daily * NADOLOL PO * metFORMIN ER 24hr (Glucophage XR) 500MG tablet Take 1 (one) tablet by mouth daily with dinner * amitriptyline (Elavil) 10 MG tablet Take 1 (one) tablet by mouth at bedtime * famotidine (Pepcid) 20 MG tablet * magnesium 250 MG tablet Take 1 (one) tablet by mouth once daily * ALPRAZolam (Xanax) 0.5 MG tablet(Started 12/31/2022) as needed Active Problems Problem Noted Date Diagnosed Date Varicose veins of bilateral lower extremities wi th pain 10/03/2018 PAD (peripheral artery disease) 04/13/2018 Primary osteoarthritis of right hip 04/21/2017 Primary osteoarthritis of left hip 04/22/2016 HTN (hypertension) 04/22/2016 High cholesterol 04/22/2016 GERD (gastroesophageal reflux disease) 7 Diabetes mellitus 04/22/2016 Insomnia 04/22/2016 Social History Tobacco Use Types Packs/Day Years [...] ST Respiratory Rate 18 04/24/2017 3:34 PM ENGINE MECHANIC Oxygen Saturation 97% 02/04/2024 9:54 AM CDT Inhaled Oxygen Concentration - - Weight 59.1 kg (130 lb 6.4 oz) 02/04/2024 9:54 A M CDT Height 170.2 cm (5' 7 ) 02/04/2024 9:54 AM CDT Body Mass Index 20.42 02/04/2024 9:54 AM CDT Medical Devices Implanted Type Area Data Analysis Manager Device Identifier Shelf Expiration Date Model / Serial / Lot Acetabular Shell 52mm X 46mm Implanted:Qty: 1 on 04/22/2016 by Wang Fuentes MD at [facility] Left: Hip [employer] [id number] 11/18/2025 [id number] / / [id number] Modular Head Standard Neck Implanted:Qty: 1 on 04/22/2016 by Wang Fuentes MD at [facility] Left: Hip [employer] [id number] 03/07/2026 [id number] / / [id number] Stem Fem 111mm Ty 1 Pps Tprlk Implanted:Qty: 1 on 04/22/2016 by Wang Fuentes MD at [facility] Left: Hip [employer] 03/19/2026 [id number] / / [id number] Dual Mobility Bearing E1 Antioxidant 28mm Implanted:Qty: 1 on 04/22/2016 by Wagn Fuentes MD at [facility] Left: Hip [employer] 02/23/2021 [id number] / / [id number] Cup Actb 52mm 46mm M2a Mg Trspk Hip Strl Implanted:Qty: 1 on 04/21/2017 by Wang Fuentes MD at [facility] Right: Hip [employer] 12/12/2019 [id number] / / [id number] Head Fem Std Ofst 28mm Hip Ty 1 Cocr G7 Implanted:Qty: 1 on 04/21/2017 by Wang Fuentes MD at [facility] Right: Hip [employer] 02/25/2027 [id number] / / [id number] Stem Fem 109mm Ty 1 Pps Tprlk Implanted:Qty: 1 on 04/21/2017 by Wang Fuentes MD at [facility] Right: Hip [employer] 01/19/2027 [id number] / / [id number] Dual Mobility Bearing Implanted:Qty: 1 on 04/21/2017 by Wang Fuentes MD at [facility] Right: Hip [employer] 07/30/2021 [id number] / / [id number] Procedures * HEMOGLOBIN A1C - POINT OF CARE (AMB)(Performed 02/04/2024) Performed for Type 2 diabetes mellitus without complication, without long-term current use of insulin ([facility]) * MT COLLECT CAPILLARY BLOOD SPEC(Performed 02/04/2024) Performed for Type 2 diabetes mellitus without complication, without long-term current use of insulin ([facility]) * GLUCOSE - POINT OF CARE (AMB) STL(Performed 02/04/2024) Performed for Type 2 diabetes mellitus without complication, without long-term current use of insulin ([facility]) * GLUCOSE - POINT OF CARE (AMB) STL(Performed 07/27/2023) Performed for Type 2 diabetes mellitus without complication, without long-term current use of insulin ([facility]) * MICROALB/CREAT RATIO URINE RANDOM PANEL(Performed 02/02/2023) Performed for Type 2 diabetes mellitus without complication, without long-term current use of insulin ([facility]) * BASIC METABOLIC PANEL (CALCIUM TOTAL)(Performed 02/02/2023) Performed for Type 2 diabetes mellitus without complication, without long-term current use of insulin ([facility]) * GLUCOSE - POINT OF CARE (AMB) STL(Performed 01/26/2023) Performed for Type 2 diabetes mellitus without complication, without long-term current use of insulin ([facility]) * HEMOGLOBIN A1C - POINT OF CARE (AMB)(Performed 01/26/2023) Performed for Type 2 diabetes mellitus without complication, without long-term current use of insulin ([facility]) * VAS BILATERAL VENOUS DUPLEX LE(Performed 10/07/2018) Performed for Varicose veins of bilateral lower extremities with pain * VAS ARTERIAL ANKLE ARM INDEX(Performed 04/15/2018) Performed for PAD (peripheral artery disease) ([facility]) * CBC W/O DIFFERENTIAL(Performed 04/28/2017) * CARDIAC RHYTHM STRIP ORDER(Performed 04/26/2017) * COMPREHENSIVE METABOLIC PANEL(Performed 04/26/2017) * CBC W/O DIFFERENTIAL(Performed 04/26/2017) * CBC W AUTO DIFFERENTIAL(Performed 04/24/2017) * BASIC METABOLIC PANEL (CALCIUM TOTAL)(Performed 04/24/2017) * GLUCOSE - POINT OF CARE(Performed 04/24/2017) * URINALYSIS REFLEX MICROSCOPIC REFLEX CULTURE(Performed 04/23/2017) * CBC W AUTO DIFFERENTIAL(Performed 04/23/2017) * BASIC METABOLIC PANEL (CALCIUM TOTAL)(Performed 04/23/2017) * CULTURE VRE(Performed 04/22/2017) * CULTURE MRSA(Performed 04/22/2017) * CULTURE MRSA(Performed 04/22/2017) * CBC W AUTO DIFFERENTIAL(Performed 04/22/2017) * GLUCOSE - POINT OF CARE(Performed 04/21/2017) * GLUCOSE - POINT OF CARE(Performed 04/21/2017) * GLUCOSE - POINT OF CARE(Performed 04/21/2017) * XR PELVIS 1 OR 2VW(Performed 04/21/2017) Performed for Primary osteoarthritis of right hip * ARTHROPLASTY TOTAL HIP(Performed 04/21/2017) Performed for Osteoarthritis of right hip, unspecified osteoarthritis type * GLUCOSE - POINT OF CARE(Performed 04/21/2017) * APHERESIS/TRANSFUSION ORDER(Performed 04/13/2017) * BLOOD TYPE VERIFICATION(Performed 04/09/2017) * EKG 12-LEAD(Performed 04/09/2017) Performed for Preop examination * ANTIBODY SCREEN(Performed 04/09/2017) Performed for Preop examination * TYPE + SCREEN PANEL(Performed 04/09/2017) Performed for Preop examination * COMPREHENSIVE METABOLIC PANEL(Performed 04/09/2017) Performed for Preop examination * CBC W AUTO DIFFERENTIAL(Performed 04/09/2017) Performed for Preop examination * CULTURE MSSA/MRSA(Performed 04/09/2017) Performed for Preop examination * CARDIAC RHYTHM STRIP ORDER(Performed 04/27/2016) * GLUCOSE - POINT OF CARE(Performed 04/25/2016) * GLUCOSE - POINT OF CARE(Performed 04/25/2016) * GLUCOSE - POINT OF CARE(Performed 04/24/2016) * GLUCOSE - POINT OF CARE(Performed 04/24/2016) * GLUCOSE - POINT OF CARE(Performed 04/24/2016) * BASIC METABOLIC PANEL (CALCIUM TOTAL)(Performed 04/24/2016) Performed for Status post total replacement of left hip * HGB HCT PANEL(Performed 04/24/2016) Performed for Status post total replacement of left hip * GLUCOSE - POINT OF CARE(Performed 04/23/2016) * GLUCOSE - POINT OF CARE(Performed 04/23/2016) * GLUCOSE - POINT OF CARE(Performed 04/23/2016) * GLUCOSE - POINT OF CARE(Performed 04/23/2016) * HEMOGLOBIN A1C(Performed 04/23/2016) * HGB HCT PANEL(Performed 04/23/2016) Performed for Status post total replacement of left hip * GLUCOSE - POINT OF CARE(Performed 04/22/2016) * XR PELVIS 1 OR 2VW(Performed 04/22/2016) Performed for Status post total replacement of left hip * GLUCOSE - POINT OF CARE(Performed 04/22/2016) * OXYGEN(Performed 04/22/2016) * PATHOLOGY TISSUE EXAM (STL)(Performed 04/22/2016) Performed for Osteoarthritis of left hip, unspecified osteoarthritis type * ARTHROPLASTY TOTAL HIP(Performed 04/22/2016) Performed for Osteoarthritis of left hip, unspecified osteoarthritis type * GLUCOSE - POINT OF CARE(Performed 04/22/2016) * COMPREHENSIVE METABOLIC PANEL(Performed 04/14/2016) Performed for Preop examination * CBC W AUTO DIFFERENTIAL(Performed 04/14/2016) Performed for Preop examination * CULTURE MSSA/MRSA(Performed 04/14/2016) Performed for Preop examination * EKG 12-LEAD(Performed 04/14/2016) Performed for Pre-operative exam * RAD OUTSIDE IMG IMPORT(Performed 01/30/2016) Performed for Pain * XR SHOULDER RIGHT 2VW OR MORE(Performed 12/18/2014) Performed for Pain in joint, shoulder region, right * MRI SHOULDER RIGHT WO CONTRAST(Performed 11/28/2014) Performed for Arm pain, anterior, right * MRI CERVICAL SPINE WO CONTRAST(Performed 11/28/2014) Performed for Arm pain, anterior, right Results * HEMOGLOBIN A1C - POINT OF CARE (AMB) (02/04/2024 10:21 AM CDT) Only the most recent of2 resultswithin the time period is included. Hemoglobin A1c POCT 5.8 % Expiration Date 12/01 Lot # [id number] QC Verified Yes Yes Blood BLOOD SPECIMEN / Unknown 02/04/2024 10:21 AM CDT Anup James MD LAB - POINT OF CARE ORDERABLES * MT COLLECT CAPILLARY BLOOD SPEC (02/04/2024 10:08 AM CDT) 02/04/2024 10:0 8 AM CDT Anup James MD [facility] - LABORATORY * (ABNORMAL) GLUCOSE - POINT OF CARE (AMB) STL (02/04/2024 10:07 AM CDT) Only the most recent of3 resultswithin the time period is included. Glucose 106(A) 60 - 100 mg/dL Lot # [id number] Expiration Date 11/22/2024 QC Verified Yes Yes Blood BLOOD SPECIMEN / Unknown 02/04/2024 10:07 AM CDT Anup James MD LAB - POINT OF CARE ORDERABLES * MICROALB/CREAT RATIO URINE RANDOM PANEL (02/02/2023 7:32 AM CDT) Creatinine Urine 80 20 - 275 mg/dL [...] within a diagnostic category. Test Performed at: [facility] [id number] [place], [place] ??[id number] VIKKI ANDREW MD Urine URINE SPECIMEN OBTAINED BY CLEAN CATCH PROCEDURE / Unknown 02/02/2023 7:32 AM CDT 02/02/2023 7:33 AM CDT Anup James MD LAB - URINE CHEMISTR Y ORDERABLES [facility] [address] [place] [address] * (ABNORMAL) BASIC METABOLIC PANEL (BMP) (02/02/2023 7:32 AM CDT) Only the most recent of4 resultswithin the time period is included. Glucose 104(H) 65 - 99 mg/dL [facility] [...] 73m2 [facility] BUN/Creatinine Ratio SEE NOTE: 6 - (calc) [facility] Comment: ?? Not Reported: BUN and Creatinine are within ?? reference range. ? Sodium 140 135 - 146 mmol/L [facility] Potassium 4.7 3.5 - 5.3 mmol/L [facility] Chloride 103 98 - 110 mmol/L [facility] CO2 28 20 - 32 mmol/L [facility] Calcium 9.6 8.6 - 10.4 mg/dL [facility] Comment: REPORT COMMENT: FASTING:YES Test Performed at: [facility] [id number] [place] [address] ??[phone] VIKKI ANDREW MD Blood BLOOD SPECIMEN / Unknown 02/02/2023 7:32 AM CDT 02/02/2023 7:33 AM CDT Anup James MD LAB - CHEMISTRY [facility] Organization Address City/State/ZIP Co de Phone Number [facility] [address] [place] [address] * VAS BILATERAL VENOUS DUPLEX LE (10/07/2018 11:41 AM CDT) Anatomical Region Laterality Modality Ultrasound 10/07/2018 9:49 AM CDT Narrative 10/07/2018 7:59 PM CDT ?[facility] ?[address] ?[place], [place] ??[address] ?Lower Extremity Venous Reflux Ultrasound Report ? Pat.Name: ??JENNA MCCARTY ? Pat.ID: ?[id number] ? St.Date: ?? 10/07/2018 ? Refer.MD: ??KINGS AGUIRRE ? Exam Time: 9:49:00 AM ?Study Type:Venous Reflux ?Age: ??1945,72Y ?Sex: ? FEMALE ? Sonogrphr: Chris Mayer RVT ? Pat. Stat.:Outpatient ? ICD - 9: ?? I83.813 ? CPT - 4: ?77523 ? Reason for Study: Varicose veins of bilateral lower extremities with pain History / Clinical: Hypertension, Diabetes, Coronary artery disease, Peripheral artery disease Procedures: ??Venous Reflux Complete - Bilateral Race: ?2 ? Visit ID: ??[id number] ? ++++++++++++++++++++++++++++++++++++ SUMMARY: ++++++++++++++++++++++++++++++++++++ RIGHT LOWER EXTREMITY: 1. Superficial venous incompetence (reflux > 500 msec) of the right GSV from saphenofemoral junction to level of knee and from mid calf to distal calf with associated large refluxing varicose veins. 2. Superficial venous incompetence (reflux > 500 msec) of the right SSV at level of distal calf with associated large refluxing varicose veins. 3. Deep venous incompetence (reflux > 500 msec) of the right posterior tibial and peroneal veins. 4. No evidence of superficial or deep vein thrombosis. LEFT LOWER EXTREMITY: 1. Deep venous thrombosis of the left posterior tibial vein, which appears subacute. 2. Superficial venous thrombosis of the left GSV from proximal thigh to level of knee. 3. Reflux assessment not performed. ++++++++++++++++++++++++++++++++++++ FINDINGS: ++++++++++++++++++++++++++++++++++++ Procedure: B-mode imaging and color flow was used in the standing ?position ??with a rapid inflation/deflation cuff. Study Quality: Technically difficult exam due to patient pain ?tolerance. Reflux Rt: All vessels seen appear patent and compressible. Doppler ?signals ??demonstrate venous valvular ?insufficiency/incompetence ??greater than 500 msec of the ?great ??saphenous vein from the saphenofemoral junction to ?the ??distal thigh with a varicosity measuring > 5.5 mm in ?diameter. ??Doppler signals demonstrate venous valvular ?insufficiency/incompetence ??greater than 500 msec of the ?great ??saphenous vein from the mid calf to the distal calf ?with ??a varicosity measuring > 5.5 mm in diameter. Doppler ?signals ??demonstrate venous valvular ?insufficiency/incompetence ??greater than 500 msec of the ?small ??saphenous vein from the distal calf to the distal ?calf ??with a varicosity measuring > 5.5 mm in diameter. ?Doppler ??signals demonstrate venous valvular ?insufficiency/incompetence ??of the posterior tibial veins ?and ??Peronial veins greater than 500 milliseconds. Great ?saphenous ??vein measures 3.5 mm at the saphenofemoral ?junction, ??3.8 mm at the proximal thigh and 3.6 mm at the ?knee ??in transverse diameter. The small saphenous vein ?measures ??4.3 mm at the saphenopopliteal junction in ?transverse ??diameter. Reflux Lt: Unable to do Reflux study on left leg because there appears ?to ??be sub acute, occlusive thrombus in the mid calf PTV and ?thrombus ??in the left GSV from prox thigh to ??knee. Reflux Comments: Preliminary report given to Monica Carlos MD ++++++++++++++++++++++++++++++++++++ MEASUREMENTS: ++++++++++++++++++++++++++++++++++++ ?DOPPLER reflux time ?? Right reflux ti ??4000 ms ? Right reflux ti ??1600 ms ?? Right reflux ti ??1400 ms ? Right reflux ti ??4100 ms ?? Right reflux ti ??2800 ms ?REFLUX Left D Calf GSV ?? D Calf GSV ?0.32 cm ? Left D LSV ?? D LSV ? 0.21 cm ? Left Knee GSV ?? Knee GSV ?0.43 cm ? Left M Calf GSV ?? M Calf GSV ?0.31 cm ? Left M LSV ?? M LSV ? 0.19 cm ? Left P Calf GSV ?? P Calf GSV ?0.33 cm ? Left P LSV ?? P LSV ? 0.17 cm ? Left Sapheno-Pop Jn ?? Sapheno-Pop Jn ??0.38 cm ? Right D Calf GSV ?? D Calf GSV ?0.27 cm ?D Calf GSV ? 1.7 sec Right D LSV ?? D LSV ? 0.26 cm ?D LSV ?1.6 sec Right D Thigh GSV ?? D Thigh GSV ? 0.38 cm ?D Thigh GSV ?4.7 sec Right Knee GSV ?? Knee GSV ?0.36 cm ? Right M Calf GSV ?? M Calf GSV ?0.24 cm ?M Calf GSV ? 4.5 sec Right M LSV ?? M LSV ? 0.17 cm ? Right M Thigh GSV ?? M Thigh GSV ? 0.35 cm ?M Thigh GSV ?4.8 sec Right P Calf GSV ?? P Calf GSV ?0.19 cm ? Right P LSV ?? P LSV ? 0.17 cm ? Right P Thigh GSV ?? P Thigh GSV ? 0.38 cm ?P Thigh GSV ?4.7 sec Right Sapheno-Pop Jn ?? Sapheno-Pop Jn ??0.43 cm ? Right SFJ GSV ?? SFJ GSV ? 0.35 cm ?SFJ GSV ?3.9 sec Signed 10/07/2018 07:59 PM Guillermina Gale MD Procedure Note Guillermina Gale MD - 10/10/2018 [place] [address] Lower Extremity Venous Reflux Ultrasound Report Pat.Name: JENNA MCCARTY Pat.ID: [id number] .Date: 10/07/2018 Refer.MD: KINGS AGUIRRE Exam Time: 9:49:00 AM Study Type:Venous Reflux Age: 7 1945,72Y Sex: FEMALE Sonogrphr: Chris Mayer RVT Pat. Stat.:Outpatient ICD - 9: I83.813 CPT - 4: 95253 Reason for Study: Varicose veins of bilateral lower extremities with pain History / Clinical: Hypertension, Diabetes, Coronary artery disease, Peripheral artery disease Procedures: Venous Reflux Complete - Bilateral Race: 2 Visit ID: [id number] ++++++++++++++++++++++++++++++++++++ SUMMARY: ++++++++++++++++++++++++++++++++++++ RIGHT LOWER EXTREMITY: 1. Superficial venous incompetence (reflux > 500 msec) of the right GSV from saphenofemoral junction to level of knee and from mid calf to distal calf with associated large refluxing varicose veins. 2. Superficial venous incompetence (reflux > 500 msec) of the right SSV at level of distal calf with associated large refluxing varicose veins. 3. Deep venous incompetence (reflux > 500 msec) of the right posterior tibial and peroneal veins. 4. No evidence of superficial or deep vein thrombosis. LEFT LOWER EXTREMITY: 1. Deep venous thrombosis of the left posterior tibial vein, which appears subacute. 2. Superficial venous thrombosis of the left GSV from proximal thigh to level of knee. 3. Reflux assessment not performed. ++++++++++++++++++++++++++++++++++++ FINDINGS: ++++++++++++++++++++++++++++++++++++ Procedure: B-mode imaging and color flow was used in the standing position with a rapid inflation/deflation cuff. Study Quality: Technically difficult exam due to patient pain tolerance. Reflux Rt: All vessels seen appear patent and compressible. Doppler signals demonstrate venous valvular insufficiency/incompetence greater than 500 msec of the great saphenous vein from the saphenofemoral junction to the distal thigh with a varicosity measuring > 5.5 mm in diameter. Doppler signals demonstrate venous valvular insufficiency/incompetence greater than 500 msec of the great saphenous vein from the mid calf to the distal calf with a varicosity measuring > 5.5 mm in diameter. Doppler signals demonstrate venous valvular insufficiency/incompetence greater than 500 msec of the small saphenous vein from the distal calf to the distal calf with a varicosity measuring > 5.5 mm in diameter. Doppler signals demonstrate venous valvular insufficiency/incompetence of the posterior tibial veins and Peronial veins greater than 500 milliseconds. Great saphenous vein measures 3.5 mm at the saphenofemoral junction, 3.8 mm at the proximal thigh and 3.6 mm at the knee in transverse diameter. The small saphenous vein measures 4.3 mm at the saphenopopliteal junction in transverse diameter. Reflux Lt: Unable to do Reflux study on left leg because there appears to be sub acute, occlusive thrombus in the mid calf PTV and thrombus in the left GSV from prox thigh to knee. Reflux Comments: Preliminary report given to Monica Carlos MD ++++++++++++++++++++++++++++++++++++ MEASUREMENTS: ++++++++++++++++++++++++++++++++++++ DOPPLER reflux time Right reflux ti 4000 ms Right reflux ti 1600 ms Right reflux ti 1400 ms Right reflux ti 4100 ms Right reflux ti 2800 ms REFLUX Left D Calf GSV D Calf GSV 0.32 cm Left D LSV D LSV 0.21 cm Left Knee GSV Knee GSV 0.43 cm Left M Calf GSV M Calf GSV 0.31 cm Left M LSV M LSV 0.19 cm Left P Calf GSV P Calf GSV 0.33 cm Left P LSV P LSV 0.17 cm Left Sapheno-Pop Jn Sapheno-Pop Jn 0.38 cm Right D Calf GSV D Calf GSV 0.27 cm D Calf GSV 1.7 sec Right D LSV D LSV 0.26 cm D LSV 1.6 sec Right D Thigh GSV D Thigh GSV 0.38 cm D Thigh GSV 4.7 sec Right Knee GSV Knee GSV 0.36 cm Right M Calf GSV M Calf GSV 0.24 cm M Calf GSV 4.5 sec Right M LSV M LSV 0.17 cm Right M Thigh GSV M Thigh GSV 0.35 cm M Thigh GSV 4.8 sec Right P Calf GSV P Calf GSV 0.19 cm Right P LSV P LSV 0.17 cm Right P Thigh GSV P Thigh GSV 0.38 cm P Thigh GSV 4.7 sec Right Sapheno-Pop Jn Sapheno-Pop Jn 0.43 cm Right SFJ GSV SFJ GSV 0.35 cm SFJ GSV 3.9 sec Signed 10/07/2018 07:59 PM Guillermina Gale MD Kings Aguirre MD VASCULAR LAB ORD ERABLES * VAS ARTERIAL ANKLE ARM INDEX (04/15/2018 7:21 AM ENGINE MECHANIC) Anatomical Region Laterality Modality Ultrasound 04/15/2018 4:55 AM ENGINE MECHANIC Narrative Procedure Note Jhony Crow MD - 04/15/2018 [place] [address] Lower Extremity Arterial Doppler Report Pat.Name: JENNA MCCARTY Pat.ID: [id number] St.Date: 04/15/2018 Refer.: AGA Exam Time: 4:55:00 AM Study Type:TERRI/PVR Age: 7 1945,72Y Sex: FEMALE Sonogrphr: Debbie Modi RVT Pat. Stat.:Outpatient ICD - 9: I73.9 CPT - 4: 70921 Reason for Study:PVD History / Clinical:Hypertension, Diabetes, Coronary artery disease, Peripheral artery disease Procedures:Ankle Arm Index Visit ID: [id number] ++++++++++++++++++++++++++++++++++++ SUMMARY: ++++++++++++++++++++++++++++++++++++ No evidence of arterial insufficiency in the right or left lower extremity at rest. Dr. Khoa Verdin was also involved in the interpretation of this study. ++++++++++++++++++++++++++++++++++++ FINDINGS: ++++++++++++++++++++++++++++++++++++ Procedure: The arterial vasculature of the lower extremities was evaluated by analysis of Doppler pressures and waveforms obtained in the legs at rest. Study Quality: This study is of adequate technical quality. TERRI: Rt ankle brachial index is 1.1. Left ankle brachial index is 1.1 (normal greater than 0.90). Arterial doppler waveforms of the right DEVELOPMENT CHEMIST and DPA are triphasic. Arterial doppler waveforms of the left DEVELOPMENT CHEMIST and DPA are triphasic. ++++++++++++++++++++++++++++++++++++ MEASUREMENTS: ++++++++++++++++++++++++++++++++++++ PRESSURES Left 1st Digit GreatToe P 99 mmHg Left TERRI (DP) TERRI (DP) 1.15 Left TERRI (PT) TERRI (PT) 1.1 Left Ankle DP AnkleDP P 164 mmHg Left Ankle PT AnklePT P 157 mmHg Left Brachial Brach P 136 mmHg Left DBI DBI 0.69 Right 1st Digit GreatToe P 91 mmHg Right TERRI (DP) TERRI (DP) 1.19 Right TERRI (PT) TERRI (PT) 1.15 Right Ankle DP AnkleDP P 170 mmHg Right Ankle PT AnklePT P 164 mmHg Right Brachial Brach P 143 mmHg Right DBI DBI 0.64 Signed 04/15/2018 10:50 PM Jhony Crow MD Evy Marti MD VASCULAR LAB ORDERA BLES * (ABNORMAL) CBC W/O DIFFERENTIAL (04/28/2017 4:59 AM ENGINE MECHANIC) Only the most recent of2 resultswithin the time period is included. [facility] WBC 5.2 4.4 - 10.7 x10E9/L 04/28/2017 5:33 AM ENGINE MECHANIC [facility] RBC 3.44(L) 3.80 - 5.20 x10E12/L 04/28/2017 5:33 AM ENGINE MECHANIC [facility] Hemoglobin 10.6(L) 12.0 - 15.6 gm/dL 04/28/2017 5:33 AM ENGINE MECHANIC [facility] Hematocrit 32.5(L) 35.9 - 45.5 % 04/28/2017 5:33 AM ENGINE MECHANIC [facility] MCV 94.5 80.7 - 98.3 fl 04/28/2017 5:33 AM [facility] MCH 30.8 26.7 - 34.0 pg 04/28/2017 5:33 AM [facility] MCHC 32.6 30.8 - 35.9 gm/dL 04/28/2017 5:33 AM [facility] Platelet Count 240 153 - 416 x10E9/L 04/28/2017 5:33 AM [facility] RDW-CV 12.5 12.1 - 14.9 % 04/28/2017 5:33 AM [facility] MPV 9.2(L) 9.4 - 12.9 fl 04/28/2017 5:33 AM [facility] Blood BLOOD SPECIMEN / Unknown Lab Venipuncture / Unknown 04/28/2017 4:59 AM ENGINE MECHANIC 04/28/2017 5:08 AM ENGINE MECHANIC Yisel Harden MD LAB - HEMATOLOGY ORD ERABLES Performing Organization Address [facility]/State/[facility] Co de Phone Number [facility] [address] [place] [address] * CARDIAC RHYTHM STRIP ORDER (04/26/2017 9:02 PM ENGINE MECHANIC) Only the most recent of2 resultswithin the time period is included. Narrative 04/26/2017 9:02 PM ENGINE MECHANIC Ordered by an unspecified provider. Scanned Document CARDIAC SERVICES ORD ERABLES * (ABNORMAL) COMPREHENSIVE METABOLIC PANEL (04/26/2017 6:06 AM ENGINE MECHANIC) Only the most recent of3 resultswithin the time period is included. Glucose 113(H) 74 - 106 mg/dL 04/26/2017 6:57 AM [facility] Sodium 137 136 - 145 mmol/L 04/26/2017 6:57 AM [facility] Potassium 3.8 3.5 - 5.1 mmol/L 04/26/2017 6:57 AM [facility] Chloride 102 98 - 107 mmol/L 04/26/2017 6:57 AM [facility] CO2 27 22 - 31 mmol/L 04/26/2017 6:57 AM [facility] Calcium 8.7 8.5 - 10.1 mg/dL 04/26/2017 6:57 AM [facility] Anion Gap 8 8 - 16 mmol/L 04/26/2017 6:57 AM [facility] BUN 10 7 - 21 mg/dL 04/26/2017 6:57 AM [facility] Creatinine 0.63 0.50 - 1.30 mg/dL 04/26/2017 6:57 AM [facility] Alkaline Phosphatase 50 38 - 126 U/L 04/26/2017 6:57 AM [facility] ALT 29 13 - 61 U/L 04/26/2017 6:57 AM [facility] AST 26 5 - 40 U/L 04/26/2017 6:57 AM [facility] Protein Total 6.4 6.4 - 8.2 gm/dL 04/26/2017 6:57 AM [facility] Albumin 2.7(L) 3.4 - 5.0 gm/dL 04/26/2017 6:57 AM [facility] Bilirubin Total 0.8 0.2 - 1.0 mg/dL 04/26/2017 6:57 AM [facility] eGFR by MDRD >60 mL/min/1.7 3m2 04/26/2017 6:57 AM [facility] eGFR by MDRD >60 mL/min/1.7 3m2 04/26/2017 6:57 AM [facility] Blood BLOOD SPECIMEN / Unknown Lab Venipuncture / Unknown 04/26/2017 6:06 AM ENGINE MECHANIC 04/26/2017 6:12 AM [facility] Shekhar Ospina MD LAB - CHEMISTRY VLADISLAV [facility] Organization Address City/State/[facility] Co de Phone Number [facility] [address], [place] [id number] * (ABNORMAL) CBC W AUTO DIFFERENTIAL (04/24/2017 11:30 AM [facility]) Only the most recent of5 resultswithin the time period is included. WBC 6.5 4.4 - 10.7 x10E9/L 04/24/2017 12:29 PM [facility] WBC Corrected x10E9/L 04/24/2017 12:29 PM [facility] RBC 3.49(L) 3.80 - 5.20 x10E12/L 04/24/2017 12:29 PM [facility] Hemoglobin 10.7(L) 12.0 - 15.6 gm/dL 04/24/2017 12:29 PM [facility] Hematocrit 32.5(L) 35.9 - 45.5 % 04/24/2017 12:29 PM [facility] MCV 93.1 80.7 - 98.3 fl 04/24/2017 12:29 PM [facility] MCH 30.7 26.7 - 34.0 pg 04/24/2017 12:29 PM [facility] MCHC 32.9 30.8 - 35.9 gm/dL 04/24/2017 12:29 PM [facility] Platelet Count 188 153 - 416 x10E9/L 04/24/2017 12:29 PM [facility] RDW-CV 12.8 12.1 - 14.9 % 04/24/2017 12:29 PM [facility] MPV 10.2 9.4 - 12.9 fl 04/24/2017 12:29 PM [facility] Neutrophils % 68.4 44.0 - 73.0 % 04/24/2017 12:29 PM [facility] Lymphocytes % 20.7 20.0 - 43.0 % 04/24/2017 12:29 PM [facility] Monocytes % 9.1 5.0 - 13.0 % 04/24/2017 12:29 PM [facility] Eosinophils % 1.2 0.0 - 6.0 % 04/24/2017 12:29 PM [facility] Basophils % 0.3 0.0 - 2.0 % 04/24/2017 12:29 PM [facility] Immature Granulocytes 0.3 0 - 1 % 04/24/2017 12:29 PM [facility] Neutrophil Absolute 4.45 2.01 - 7.14 x10E9/L 04/24/2017 12:29 PM [facility] Lymphocytes Absolute 1.35 1.07 - 3.94 x10E9/L 04/24/2017 12:29 PM [facility] Monocytes Absolute 0.59 0.26 - 1.07 x10E9/L 04/24/2017 12:29 PM [facility] Eosinophils Absolute 0.08 0 - 0.47 x10E9/L 04/24/2017 12:29 PM ENGINE MECHANIC [facility] Basophils Absolute 0.02 0 - 0.08 x10E9/L 04/24/2017 12:29 PM [facility] Immature Granulocytes Absolute 0.02 0.00 - 0.06 x10E9/L 04/24/2017 12:29 PM ENGINE MECHANIC [facility] nRBC Auto 0 /100 WBC 04/24/2017 12:29 PM ENGINE MECHANIC [facility] Blood BLOOD SPECIMEN / Unknown Lab Venipuncture / Unknown 04/24/2017 11:30 AM ENGINE MECHANIC 04/24/2017 11:57 AM ENGINE MECHANIC Wang Fuentes MD LAB - HEMATOLOGY OR DERABLES [facility] [address] [place] [id number] * (ABNORMAL) GLUCOSE - POINT OF CARE (04/24/2017 8:03 AM ENGINE MECHANIC) Only the most recent of17 resultswithin the time period is included. Glucose WB/POC 110(H) 70 - 106 mg/dL 04/24/2017 8:06 AM [facility] Blood BLOOD SPECIMEN / Unknown 04/24/2017 8:03 AM ENGINE MECHANIC 04/24/2017 8:06 AM ENGINE MECHANIC Wang Fuentes MD LAB - POINT OF CARE ORDERABLES [facility] [address] [place] [id number] * URINALYSIS ROUTINE W/REFLEX TO CULTURE (04/23/2017 2:23 PM ENGINE MECHANIC) Color UA Straw Straw, Yellow 04/23/2017 2:45 PM ENGINE MECHANIC [facility] Clarity UA Clear Clear 04/23/2017 2:45 PM ENGINE MECHANIC [facility] Glucose UA Negative Negative 04/23/2017 2:45 PM ENGINE MECHANIC [facility] Bilirubin UA Negative Negative 04/23/2017 2:45 PM ENGINE MECHANIC [facility] Ketone UA Negative Negative 04/23/2017 2:45 PM ENGINE MECHANIC [facility] Specific [place] UA 1.005 1.005 - 1.030 04/23/2017 2:45 PM ENGINE MECHANIC [facility] Blood UA Negative Negative 04/23/2017 2:45 PM ENGINE MECHANIC [facility] pH UA 6.0 5.0 - 8.0 pH 04/23/2017 2:45 PM ENGINE MECHANIC [facility] Protein UA Negative Negative 04/23/2017 2:45 PM ENGINE MECHANIC [facility] Urobilinogen UA Negative Negative mg/dL 04/23/2017 2:45 PM ENGINE MECHANIC [facility] Nitrite UA Negative Negative 04/23/2017 2:45 PM ENGINE MECHANIC [facility] Leukocyte UA Negative Negative 04/23/2017 2:45 PM ENGINE MECHANIC [facility] Urine Microscopy Urine microscopy not indicated 04/23/2017 2:45 PM ENGINE MECHANIC [facility] Reflex Status Culture not indicated 04/23/2017 2:45 PM ENGINE MECHANIC [facility] Urine URINE SPECIMEN OBTAINED BY CLEAN CATCH PROCEDURE / Unknown Collection / Unknown 04/23/2017 2:23 PM ENGINE MECHANIC 04/23/2017 2:31 PM ENGINE MECHANIC Narrative [facility] - 04/23/2017 2:45 PM ENGINE MECHANIC Jed Garcia DO LAB - URINALYSIS ORD ERABLES [facility] [address] [facility] [place] [address] * CULTURE VRE (04/22/2017 6:43 PM ENGINE MECHANIC) Culture Negative for vancomycin-resi stant Enterococci (VRE) ELLIS 04/24/2017 7:44 AM ENGINE MECHANIC [facility] Stool RECTAL SWAB / Unknown Collection / Unknown 04/22/2017 6:43 PM ENGINE MECHANIC 04/22/2017 6:48 PM ENGINE MECHANIC Jed Garcia DO LAB - MICROBIOLOGY O RDERABLES [facility] [address] [place] [address], [facility] [phone] * CULTURE MRSA (04/22/2017 6:43 PM ENGINE MECHANIC) Only the most recent of2 resultswithin the time period is included. Culture Negative for methicillin-resist ant Staphylococcus aureus (MRSA) ELLIS 04/24/2017 6:49 AM ENGINE MECHANIC [facility] Stool RECTAL SWAB / Unknown Collection / Unknown 04/22/2017 6:43 PM ENGINE MECHANIC 04/22/2017 6:48 PM ENGINE MECHANIC Jed Garcia DO LAB - MICROBIOLOGY O RDERABLES [facility] [address] [place], [place] [address], [facility] [phone] * XR PELVIS 1 OR 2 VW (IN PACU) (04/21/2017 9:47 AM ENGINE MECHANIC) Only the most recent of2 resultswithin the time period is included. Anatomical Region Laterality Modality Pelvis Radiographic Barbara ging 04/21/2017 9:53 AM ENGINE MECHANIC Narrative 04/21/2017 10:26 AM ENGINE MECHANIC PELVIS AP VIEW INDICATION: Pelvic pain and hip pain FINDINGS: Frontal view of the pelvis, compared to prior of April 22, 2016, now shows right total hip prosthesis in appropriate alignment. Left hip prosthesis is seen. There are postoperative changes of the lower lumbar spine. There are degenerative changes of the symphysis pubis. No acute fracture or subluxation is identified. Edited by Sabrina Lyles on 04/21/2017 10:19 AM Procedure Note Wang Hughse MD - 04/21/2017 PELVIS AP VIEW INDICATION: Pelvic pain and hip pain FINDINGS: Frontal view of the pelvis, compared to prior of April 22, 2016, now shows right total hip prosthesis in appropriate alignment. Left hip prosthesis is seen. There are postoperative changes of the lower lumbar spine. There are degenerative changes of the symphysis pubis. No acute fracture or subluxation is identified. Edited by Sabrina Lyles on 04/21/2017 10:19 AM Wang Fuentes MD DIAGNOSTIC IMAGING ORDERABLES * APHERESIS/TRANSFUSION ORDER (04/13/2017 5:16 PM ENGINE MECHANIC) Narrative 04/13/2017 5:16 PM ENGINE MECHANIC Ordered by an unspecified provider. Scanned Document NURSING - VITAL SIGN S AND ASSESSMENT * BLOOD TYPE VERIFICATION (04/09/2017 10:45 AM ENGINE MECHANIC) ABO A 04/09/2017 12:20 PM ENGINE MECHANIC [facility] Rh Type Positive 04/09/2017 12:20 PM ENGINE MECHANIC [facility] Blood Bank BLOOD SPECIMEN / Unknown Venipuncture / Unknown 04/09/2017 10:45 AM ENGINE MECHANIC 04/09/2017 11:02 AM ENGINE MECHANIC Wang Fuentes MD LAB - BLOOD BANK OR DERABLES [facility] [address] [place] [address], [facility] [phone] * EKG 12-LEAD (04/09/2017 10:23 AM ENGINE MECHANIC) Only the most recent of2 resultswithin the time period is included. Ventricular Rate 62 BPM [facility] Atrial Rate 62 BPM [facility] P-R Interval 144 ms [facility] QRS Duration ms 92 ms [facility] Q-T Interval ms 418 ms [facility] QTC Calculation (Bezet) 424 ms [facility] Calculated P [place] -4 degrees [facility] Calculated R [place] -24 degrees [facility] Calculated T [place] -3 degrees [facility] Interpretation EKG Normal sinus rhythm Moderate voltage criteria for LVH, may be normal variant Nonspecific T wave abnormality Abnormal ECG When compared with ECG of 14-APR-2016 10:20, QT has shortened Confirmed by MD DEMI, CHRIS Rios ([id number]) on 04/10/2017 8:25:30 AM [facility] M[facility] 04/09/2017 10:2 3 AM ENGINE MECHANIC 04/10/2017 8:25 AM ENGINE MECHANIC Wang Fuentes MD ECG ORDERABLES [facility] M[facility] * TYPE + SCREEN PANEL (04/09/2017 10:14 AM ENGINE MECHANIC) ABO A 04/09/2017 1:38 PM ENGINE MECHANIC [facility] Rh Type Positive 04/09/2017 1:38 PM ENGINE MECHANIC [facility] Comment:History check perfor med. Retype required. Antibody Screen Negative 04/09/2017 1:38 PM ENGINE MECHANIC [facility] Blood Bank BLOOD SPECIMEN / Unknown Venipuncture / Unknown 04/09/2017 10:14 AM ENGINE MECHANIC 04/09/2017 10:29 AM ENGINE MECHANIC Sourav Mcdonald DO LAB - BLOOD BANK OR DERABLES Performing Organization Address City/[facility]/ZIP Co de Phone Number [facility] [address] [place] [address], [facility] [phone] * ANTIBODY SCREEN (04/09/2017 10:14 AM ENGINE MECHANIC) Antibody Screen Negative 04/09/2017 1:42 PM ENGINE MECHANIC [facility] Blood Bank BLOOD SPECIMEN / Unknown Venipuncture / Unknown 04/09/2017 10:14 AM ENGINE MECHANIC 04/09/2017 10:29 AM ENGINE MECHANIC Sourav Mcdonald LAB - BLOOD BANK OR DERABLES Performing Organization Address [facility] Co de Phone Number [facility] [address] [place] [address], [facility] [phone] * CULTURE MSSA/MRSA (04/09/2017 9:59 AM ENGINE MECHANIC) Only the most recent of2 resultswithin the time period is included. Culture Negative for Staphylococcus aureus (MRSA/MSSA) ELLIS 04/11/2017 7:17 AM ENGINE MECHANIC [facility] Microbiology SPECIMEN FROM NASAL FOSSAE / Unknown Collection / Unknown 04/09/2017 9:59 AM ENGINE MECHANIC 04/09/2017 10:54 AM ENGINE MECHANIC Wang Fuentes MD LAB - MICROBIOLOGY ORDERABLES Performing Organization Address City/[facility] Co de Phone Number [facility] [address] [place] [address], [facility] [phone] * (ABNORMAL) HGB HCT PANEL (04/24/2016 6:01 AM ENGINE MECHANIC) Only the most recent of2 resultswithin the time period is included. Hemoglobin 9.5(L) 12.0 - 15.6 gm/dL 04/24/2016 6:08 AM [facility] Hematocrit 28.4(L) 35.9 - 45.5 % 04/24/2016 6:08 AM [facility] Blood BLOOD SPECIMEN / Unknown Lab Venipuncture / Unknown 04/24/2016 6:01 AM ENGINE MECHANIC 04/24/2016 6:04 AM ENGINE MECHANIC Wang Fuentes MD LAB - HEMATOLOGY OR DERABLES [facility] [address] [place] [id number] * HEMOGLOBIN A1C (04/23/2016 6:19 AM ENGINE MECHANIC) Pathologist [facility] Hemoglobin A1c 6.3 4.2 - 6.3 % 04/23/2016 6:48 AM [facility] Estimated Average Glucose 134 mg/dL 04/23/2016 6:48 AM [facility] Whole Blood BLOOD SPECIMEN WITH EDTA / Unknown Lab Venipuncture / Unknown 04/23/2016 6:19 AM ENGINE MECHANIC 04/23/2016 6:23 AM ENGINE MECHANIC Jarret Linares DO LAB - CHEMISTRY VLADISLAV SWANSON Performing Organization Address [facility] de Phone Number [facility] [address] [place] [id number] * GROSS + MICRO EXAM (STL) (04/22/2016 10:16 AM ENGINE MECHANIC) Pathologist [facility] Case Report Surgical Pathology Report ? Case: [id number] ? Authorizing Provider: ??Wang Fuentes MD ? Collected: ? 04/22/2016 10:16 AM ? Ordering Location: ? [facility] ? Received: ?04/22/2016 02:13 PM ? Pathologist: ? Gretta Salguero MD ? Specimen: ?Bone Fragments, bone and tissue left hip ? 04/24/2016 2:47 PM [facility] Final Diagnosis Bone and tissue, left hip, excision: - Bone with features of degenerative joint disease - Synovium with papillary hyperplasia BRIANA/dasha 04/24/2016 2:47 PM [facility] Gross Description Received in a container of formalin labeled Jenna Mccarty and bone and tissue left hip consists of a femoral head and a piece of yellow fatty tissue. The femoral head measures 5.2 x 4.7 x 4 cm. The articular surface is gil-red and focally dull and roughened. Sectioning displays a gil-yellow trabecular cut surface. The piece of yellow-red fatty tissue measures 3.7 cm in greatest dimension. Sectioning displays a friable yellow fatty cut surface with scattered coagula. [employer] Engine [employer] Manager sections are submitted in cassettes A1 and A2 following decalcification. JS/tom 04/24/2016 2:47 PM [facility] Microscopic Description Histologic sections show bone with an irregular articular surface, consistent with degenerative joint disease. The accompanying synovium shows papillary hyperplasia. There is no evidence of malignancy. BRIANA/dasha 04/24/2016 2:47 PM [facility] Disclaimer All histochemical and/or immunohistochemical results are interpreted with controls that demonstrate appropriate staining reactions before reporting results. Note on use of immunocytochemistry reagents: This test was developed and its performance characteristic determined by [facility], Department of Laboratory Medicine. It has not been cleared or approved by the U.S. Food and Drug Administration (FDA). The FDA has determined that such clearance or approval is not necessary. The test is used for clinical purpose. It should not be regarded as investigational or for research. This laboratory is certified to perform high complexity testing. 04/24/2016 2:47 PM ENGINE MECHANIC [facility] Embedded Images 04/24/2016 2:47 PM ENGINE MECHANIC [facility] Pathology/Cytolo gy BONE TISSUE SPECIMEN / Unknown 04/22/2016 10:16 AM ENGINE MECHANIC 04/22/2016 2:13 PM ENGINE MECHANIC Wang Fuentes MD LAB - PATHOLOGY/CYT OLOGY ORDERABLES [facility] [address] [place] [address] * RAD OUTSIDE IMG IMPORT (01/30/2016 8:43 AM CDT) Anatomical Region Laterality Modality Radiographic Barbara ging Narrative 01/31/2016 8:40 AM CDT OUTSIDE IMAGES SUCCESSFULLY IMPORTED Arash Langford DO DIAGNOSTIC IMAGING O RDERABLES * XR SHOULDER 2+ VW RIGHT (12/18/2014 2:52 PM CDT) Anatomical Region Laterality Modality Upper Extremity Radiographic Barbara ging Narrative 12/18/2014 3:45 PM CDT Gretta Quiroga, RT(R) ? 12/18/2014 ??3:45 PM See progress notes for results Katerine Caro MD DIAGNOSTIC IMAGING ORDERABLES * MRI SHOULDER WO CONT RIGHT (11/28/2014 2:44 PM CDT) Anatomical Region Laterality Modality Magnetic Resonan ce 11/29/2014 7:52 AM CDT Impressions 11/29/2014 9:24 AM CDT SMALL LOW TO MODERATE GRADE ARTICULAR SIDED PARTIAL TEAR INVOLVING THE MID FIBERS OF THE SUPRASPINATUS TENDON, OCCURRING AT THE FOOTPLATE. TEARING OF THE INFERIOR LABRUM EXTENDING FROM THE 4/5:00 POSITION TO THE 7:00 POSITION. MILD TO MODERATE TENDINOSIS OF THE INFRASPINATUS. Edited by Sabrina Lyles on 11/29/2014 8:59 AM Narrative 11/29/2014 9:24 AM CDT MRI RIGHT SHOULDER WITHOUT CONTRAST CLINICAL INDICATION: Severe right shoulder pain and limited range of motion. TECHNIQUE: Multiplanar, multisequence MR imaging of the right shoulder was performed without contrast. FINDINGS: There is a small low to moderate grade articular sided partial tear involving the mid fibers of the supraspinatus tendon occurring at the footplate. There is mild to moderate tendinosis of the infraspinatus. There are no other rotator cuff tendon abnormalities. There is abnormal signal and morphology noted to the inferior labrum extending from the 4/5:00 position to the 7:00 position. This is consistent with a labral tear. There is no evidence of paralabral ganglion cyst formation. Superiorly, there is a small sub-labral foramen. No tears of the superior labrum are identified. The biceps tendon is normal. There is a type I acromion. There is mild hypertrophy of the acromioclavicular joint with an inferiorly directed osteophyte resulting in mild mass effect to the myotendinous insertion of the supraspinatus. The glenohumeral joint is congruent. The articular cartilage of the glenohumeral joint is intact throughout. There is no evidence of muscle edema or muscle atrophy. There is no joint effusion. There are no mass lesions. Procedure Note Lizzy Wilkins MD - 11/29/2014 MRI RIGHT SHOULDER WITHOUT CONTRAST CLINICAL INDICATION: Severe right shoulder pain and limited range of motion. TECHNIQUE: Multiplanar, multisequence MR imaging of the right shoulder was performed without contrast. FINDINGS: There is a small low to moderate grade articular sided partial tear involving the mid fibers of the supraspinatus tendon occurring at the footplate. There is mild to moderate tendinosis of the infraspinatus. There are no other rotator cuff tendon abnormalities. There is abnormal signal and morphology noted to the inferior labrum extending from the 4/5:00 position to the 7:00 position. This is consistent with a labral tear. There is no evidence of paralabral ganglion cyst formation. Superiorly, there is a small sub-labral foramen. No tears of the superior labrum are identified. The biceps tendon is normal. There is a type I acromion. There is mild hypertrophy of the acromioclavicular joint with an inferiorly directed osteophyte resulting in mild mass effect to the myotendinous insertion of the supraspinatus. The glenohumeral joint is congruent. The articular cartilage of the glenohumeral joint is intact throughout. There is no evidence of muscle edema or muscle atrophy. There is no joint effusion. There are no mass lesions. IMPRESSION SMALL LOW TO MODERATE GRADE ARTICULAR SIDED PARTIAL TEAR INVOLVING THE MID FIBERS OF THE SUPRASPINATUS TENDON, OCCURRING AT THE FOOTPLATE. TEARING OF THE INFERIOR LABRUM EXTENDING FROM THE 4/5:00 POSITION TO THE 7:00 POSITION. MILD TO MODERATE TENDINOSIS OF THE INFRASPINATUS. Edited by Sabrina Lyles on 11/29/2014 8:59 AM Ever Grant MD MR ORDERABLES * MRI SPINE CERVICAL NON CONTRAST (11/28/2014 2:20 PM CDT) Anatomical Region Laterality Modality Pelvis Magnetic Resonan ce 11/28/2014 4:43 PM CDT Impressions 11/28/2014 4:52 PM CDT Ligamentous thickening or ligamentous calcification on the left at C6-7 in combination with a diffuse disc bulge results in a mild central canal stenosis. Neural foraminal narrowing is present from C3-4 through C6-7. Edited by Sangeeta Nogueira on 11/28/2014 4:51 PM Narrative 11/28/2014 4:52 PM CDT MRI CERVICAL SPINE Indication: Cervical radiculopathy to right shoulder, neck pain. Technique: The following sequences were obtained: Sagittal T1 and T2, axial T2 volume, axial gradient-echo. Comparison: None. Alignment: There is an exaggeration of the normal cervical lordosis. No focal malalignment is seen at any level. Spinal cord: Normal in morphology and in signal intensity. Marrow: Normal. Intervertebral discs: Posterior disc bulges are present at C2-3, C5-6, and C6-7. The following levels were directly imaged in the axial plane: C2-C3: No significant stenosis is present. C3-C4: The right neural foramen is mildly narrowed and the left minimally narrowed. C4-C5: There is no significant disc herniation or stenosis. Mild left and mild to moderate right neural foraminal stenoses are present. C5-C6: Disc bulge effaces the ventral CSF space without significant central canal stenosis. The neural foramina are mild to moderately narrowed. C6-C7: The neural foramina are mildly narrowed bilaterally. Ligamentous thickening or calcification on the left with a diffuse disc bulge results in a mild central canal stenosis. C7-T1: No significant stenosis is present. Procedure Note Maura Valdivia MD - 11/28/2014 MRI CERVICAL SPINE Indication: Cervical radiculopathy to right shoulder, neck pain. Technique: The following sequences were obtained: Sagittal T1 and T2, axial T2 volume, axial gradient-echo. Comparison: None. Alignment: There is an exaggeration of the normal cervical lordosis. No focal malalignment is seen at any level. Spinal cord: Normal in morphology and in signal intensity. Marrow: Normal. Intervertebral discs: Posterior disc bulges are present at C2-3, C5-6, and C6-7. The following levels were directly imaged in the axial plane: C2-C3: No significant stenosis is present. C3-C4: The right neural foramen is mildly narrowed and the left minimally narrowed. C4-C5: There is no significant disc herniation or stenosis. Mild left and mild to moderate right neural foraminal stenoses are present. C5-C6: Disc bulge effaces the ventral CSF space without significant central canal stenosis. The neural foramina are mild to moderately narrowed. C6-C7: The neural foramina are mildly narrowed bilaterally. Ligamentous thickening or calcification on the left with a diffuse disc bulge results in a mild central canal stenosis. C7-T1: No significant stenosis is present. IMPRESSION Ligamentous thickening or ligamentous calcification on the left at C6-7 in combination with a diffuse disc bulge results in a mild central canal stenosis. Neural foraminal narrowing is present from C3-4 through C6-7. Edited by Sangeeta Nogueira on 11/28/2014 4:51 PM Ever Grant MD MR ORDERABLES Care Teams Federal Mediation Commissioner Relationship Specialty Start Date End Date Kate Cid MD [address] [place] [id number] PCP - General Family Medicine 02/04/24 [place] [id number] [address] Orthopedic Surgery 12/18/14
--- OUTSIDE RECORDS SUMMARY | 2024-05-10 03:31 | XMS_ITS | Referral Summary ---
Author Organization [facility] Address [address] [facility] [place] [address] Care Team Providers Care Bus Monitor Name Role Phone Katerine Caro MD Unavailable [phone] Kate Cid MD Primary Care Provider [phone] Source Comments [facility],non-owned Affiliates and Associated Physician Practices is amultiple site organization consisting of ambulatory clinics and hospital sitesin [place], [place], [place] and [place]. This disclosure is being madepursuant to the Care Everywhere program and may not contain all information available regarding this patient. 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 No 04/21/2017 Is person blind or have serious difficulty seein g? No 04/21/2017 Does person have serious dif ficulty walking/climbing stairs? Yes 04/21/2017 Does person have difficulty dressing/bathing? Ye s 04/21/2017 Does person have difficulty doing errands alone? Yes 04/21/2017 Cognitive Status Response Date of Assessm ent Does person have difficulty concentrating/remembering/making decisions? 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 Device Identifier Shelf Expiration Date Model / Serial / Lot Acetabular Shell 52mm X 46mm Implanted:Qty: 1 on 04/22/2016 by Wang Fuentes MD at [facility] Left: [employer] [id number] 11/18/2025 [id number] / / [id number] Modular Head Standard Neck Implanted:Qty: 1 on 04/22/2016 by Wang Fuentes MD at [facility] Left: [employer] [id number] 03/07/2026 [id number] / / [id number] Stem Fem 111mm Ty 1 Pps Tprlk Implanted:Qty: 1 on 04/22/2016 by Wang Fuentes MD at [facility] Left: [employer] 03/19/2026 [id number] / / [id number] Dual Mobility Bearing E1 Antioxidant 28mm Implanted:Qty: 1 on 04/22/2016 by Wang Fuentes MD at [facility] Left: [employer] 02/23/2021 [id number] / / [id number] Cup Actb 52mm 46mm M2a Mg Trspk Hip Strl Implanted:Qty: 1 on 04/21/2017 by Wang Fuentes MD at [facility] Right: Hip [employer] 12/12/2019 [id number] / / [id number] Head Fem Std Ofst 28mm Hip Ty 1 Cocr G7 Implanted:Qty: 1 on 04/21/2017 by Wang Fuentes MD at [facility] Right: Hip [employer] 02/25/2027 [id number] / / [id number] Stem Fem 109mm Ty 1 Pps Tprlk Implanted:Qty: 1 on 04/21/2017 by Wang Fuentes MD at [facility] Right: Hip [employer] 01/19/2027 [id number] / / [id number] Dual Mobility Bearing Implanted:Qty: 1 on 04/21/2017 by Wang Fuentes MD at [facility] Right: Hip [employer] 07/30/2021 [id number] / / [id number] Procedures Procedure Name Priority Date/Time Associated Diagnosis [...] OF CARE (AMB) (02/04/2024 10:21 AM CDT) [facility] Hemoglobin A1c POCT 5.8 % Expiration Date 12/01 Lot # [id number] QC Verified Yes Yes Blood BLOOD SPECIMEN / Unknown 02/04/2024 10:21 AM CDT Anup James MD LAB - POINT OF CARE ORDERABLES * MICROALB/CREAT RATIO URINE RANDOM PANEL (02/02/2023 7:32 AM CDT) [facility] Creatinine Urine 80 20 - 275 [...] within a diagnostic category. Test Performed at: [facility] [address] ??[phone] VIKKI ANDREW MD Urine URINE SPECIMEN OBTAINED BY CLEAN CATCH PROCEDURE / Unknown 02/02/2023 7:32 AM CDT 02/02/2023 7:33 AM CDT Anup James MD LAB - URINE CHEMISTR Y ORDERABLES [facility] [address] [place] [address] * (ABNORMAL) BASIC METABOLIC PANEL (BMP) (02/02/2023 [...] mL/min/1. 73m2 [facility] BUN/Creatinine Ratio SEE NOTE: (calc) [facility] Comment: ?? Not Reported: BUN and Creatinine are within ?? reference range. ? Sodium 140 135 - 146 mmol/L [facility] Potassium 4.7 3.5 - 5.3 mmol/L [facility] Chloride 103 98 - 110 mmol/L [facility] CO2 28 20 - 32 mmol/L [facility] Calcium 9.6 8.6 - 10.4 mg/dL [facility] Comment: REPORT COMMENT: FASTING:YES Test Performed at: [facility] [address] [place], [place] ??[id number] VIKKI ANDREW MD Blood BLOOD SPECIMEN / Unknown 02/02/2023 7:32 AM CDT 02/02/2023 7:33 AM CDT Anup James MD LAB - CHEMISTRY VLADISLAV SWANSON [facility] Organization Address City/State/ZIP Co de Phone Number [facility] [address] [place] [address] from Last 3 Months or Most Recently Relevant to Health Maintenance Advance Directives Documents on File Type Date Recorded Patient Supervisor Prepress Expl anation Adv Directive/Living Will/POA 04/27/2016 6:52 PM * Full Code (Latest Code Status on File) Date Activated Date Inactivated Comments 04/27/2017 10:17 AM 04/29/2017 3:03 PM * Full Code Date Activated Date Inactivated Comments 04/21/2017 5:21 PM 04/24/2017 7:21 PM * Full Code Date Activated Date Inactivated Comments 04/22/2016 5:22 PM 04/25/2016 2:27 PM Care Teams Bus Monitor Relationship Specialty Start Date End Date Kate Cid MD [address] [place] [id number] PCP - General Family Medicine 02/04/24 [place] [address] [place] [address] Orthopedic Surgery 12/18/14
[2024-05-10 09:57] VITALS: BP 170/84; PULSE 58; RESP 16; TEMP 36.2; O2SAT 100
[2024-05-10] MEDS: LACTATED RINGERS 1,000 ML 150 ML IV CONT (10:09)
[2024-05-10 10:11] LABS: Glucose Point of Care 81 mg/dl (65-105)
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
[2024-05-10 11:12] VITALS: BP 135/107; PULSE 68; RESP 20; O2SAT 99
[2024-05-10 11:22] VITALS: BP 156/81; PULSE 60; RESP 19; O2SAT 99
[2024-05-10 11:32] VITALS: BP 166/85; PULSE 60; RESP 19; O2SAT 100
== END 2024-05-10 11:43 | disposition home or self-care (01) ==
PROVIDERS: PCP Family Medicine; Visit Provider Internal Medicine Gastroenterology
PROC: 0DJ08ZZ Inspection of Upper Intestinal Tract, Via Natural or Artificial Opening Endoscopic (ICD-10-PCS; CPT 43239; principal; 2024-05-10 10:30)
DX: K22.70 Barrett's esophagus without dysplasia (principal); K21.00 Gastro-esophageal reflux disease with esophagitis, without bleeding; K29.50 Unspecified chronic gastritis without bleeding; K44.9 Diaphragmatic hernia without obstruction or gangrene; I10 Essential (primary) hypertension; E78.2 Mixed hyperlipidemia; E11.42 Type 2 diabetes mellitus with diabetic polyneuropathy; M81.0 Age-related osteoporosis without current pathological fracture; M35.3 Polymyalgia rheumatica; F51.01 Primary insomnia; M47.892 Other spondylosis, cervical region; M47.896 Other spondylosis, lumbar region; I25.118 Atherosclerotic heart disease of native coronary artery with other forms of angina pectoris; Z79.84 Long term (current) use of oral hypoglycemic drugs; Z98.890 Other specified postprocedural states; Z90.49 Acquired absence of other specified parts of digestive tract; Z86.718 Personal history of other venous thrombosis and embolism; Z82.49 Family history of ischemic heart disease and other diseases of the circulatory system
CPT/HCPCS: 43239; 82948; 88305; J2003; J2704; J7120

== ENCOUNTER 2024-07-31 07:38 | Emergency (ER) | payer MEDICARE, SELFPAY ==
[2024-07-31] VITALS (8 sets, daily range): BP systolic 117–194; BP diastolic 70–99; PULSE 62–71; RESP 16–19; TEMP 36.4–36.6; O2SAT 98–100
--- NOTE | ~2024-07-31 | XR_ITS ---
Clinical Indication: Syncope PA and lateral views of the chest: Comparison: 08/08/2016 Findings: The lungs are clear, without evidence of focal consolidation or pleural effusion. Cardiome diastinal silhouette is within normal limits. Bones and soft tissues are unremarkable. Impression: Normal chest. Reviewed, dictated and finalized at [facility]. Impression: Normal chest.
--- NOTE | ~2024-07-31 | CT_ITS ---
CTA chest PE protocol Ordering provider: Cheli Haskins MD History: 78 years Female with . syncope, elevated d dimer . Comparison: None. Technique: CT angiogram chest was performed following timed intravenous injection of contrast. Thin s lice axial images and reformatted coronal images were obtained. Three dimensional reformatted images of the chest were also obtained using a [employer] workstation. . Automated exposure control and iterati ve reconstruction technique were employed. The dose-length product was 157.10 mGy-cm. 100 mL Omnipaqu e 350 was given IV. Findings: PULMONARY ARTERIES: No pulmonary embolus. VISUALIZED THORACIC INLET: Normal. MEDIASTINUM: Aorta/coronary arteries: Mild atheromatous disease. Heart/other: The heart is slightly enlarged. Lymph nodes: No mediastinal or hilar adenopathy. Small hilar lymph nodes are noted. LUNGS: Dependent atelectatic changes. No pulmonary nodules or masses. No infiltrates or effusions. No pneumo thorax. Dependent atelectatic changes.Rib resection postoperative changes in the middle lobe area wit h adjacent atelectasis. VISUALIZED UPPER ABDOMEN: Status post cholecystectomy. Duodenal diverticulum. Otherwise, the visualiz ed upper abdomen is normal. MUSCULOSKELETAL: Soft tissues: The superficial soft tissues are normal. Bones: Age appropriate degenerative changes of the spine. Kyphosis is noted. IMPRESSION: 1. No pulmonary embolism. 2. No acute cardiopulmonary pathology. Reviewed, dictated and finalized at location A.
--- NOTE | ~2024-07-31 | CT_ITS ---
EXAMINATION: CT pelvis wo con DATE: 07/31/2024 08:28 INDICATION: Fall post syncopal episode TECHNIQUE: High resolution computed tomography (CT) of the pelvis was performed without intravenous c ontrast. Additional sagittal and coronal reconstructions were performed. Automated exposure control a nd iterative reconstruction technique were employed. The dose-length product was 362.62 mGy-cm. COMPARISON: Pelvis radiograph dated 12/30/2017 FINDINGS: Instrumented anterior spinal fusion at L4-L5 and partially visualized at L3-L4 with interbody bone gr aft cages and anterior plate-screw fixation at both levels. No lucency surrounding the instrumentatio n the lumbar spine or bilateral hips to suggest loosening or infection. There are bilateral noncement ed total hip arthroplasties which are in near anatomic alignment. No acute osseous abnormality. Mild right and moderate left sacroiliac osteoarthritis. Lumbar facet osteoarthritis severe bilaterally at L5-S1 and moderate bilaterally at L3-L4 and L4-L5. Mild osteitis pubis. There is calcified atheroscle rosis of the caudal abdominal aorta and many of the other arteries in the pelvis and proximal thighs. IMPRESSION: 1. No acute osseous abnormality. 2. Instrumented L3-L5 anterior spinal fusion and bilateral total hip arthroplasties. Reviewed, dictated and finalized at location A. IMPRESSION: 1. No acute osseous abnormality. 2. Instrumented L3-L5 anterior spinal fusion and bilateral total hip arthroplas ties.
--- NOTE | ~2024-07-31 | CT_ITS ---
Non-contrast Head CT History: Head injury COMPARISON: 12/05/2021 Technique: Axial non-contrast imaging of the brain was performed. Dose reduction technique was used on this scan by utilizing automated exposure control and iterative reconstruction technique. The dose -length product (DLP) was 605.33 mGy-cm. Findings: There is no evidence of intracranial hemorrhage, mass lesion, or acute infarct. Brain par enchyma appears normal. The ventricles and subarachnoid spaces are normal in size. The calvarium ap pears normal. The visualized paranasal sinuses and mastoid air cells are clear. Impression: No significant abnormality seen. Reviewed, dictated and finalized at location . Impression: No significant abnormality seen.
--- NOTE | ~2024-07-31 | CT_ITS ---
CT cervical spine wo con Ordering provider: Cheli Haskins MD History: . fall . Comparison: None. Technique: CT of the cervical spine was performed without contrast. Sagittal and coronal reformatted images were also obtained and reviewed. Automated exposure control and iterative reconstruction naheed hnique were employed. The dose-length product was 99.31 mGy-cm. FINDINGS: VERTEBRAE: No subluxation or acute fracture. The occipital condyles are intact. Levoscoliosis. DISC SPACES: Narrowing of the disc C4-C5, and C5-C6. Multilevel facet joint disease. Multilevel uncov ertebral joint osteoarthritic changes. Multilevel intervertebral foraminal narrowing. PARASPINOUS SOFT TISSUES: Bilateral carotid calcifications. IMPRESSION: No acute osseous abnormality cervical spine. Multilevel degenerative disc disease. Reviewed, dictated and finalized at location A.
--- NOTE | 2024-07-31 07:44 | ECG_ITS ---
Test Date: 2024-07-31 07:58:54 Measurements Intervals [place] Rate: 57 P: 97 WY: 174 QRS: -34 QRSD: 150 T: -17 QT: 454 QTc: 444 Interpretive Statements SINUS BRADYCARDIA LEFT AXIS DEVIATION RIGHT BUNDLE BRANCH BLOCK BASELINE ARTIFACT- I, II, III, AVR, AVL,A VF, V1-V6 ABNORMAL ECG No previous ECG available for comparison Electronically Signed On 07-31-2024 08:33:07 CDT by Matthew Luke D.O.
[2024-07-31 08:11] LABS: Hematocrit 38.3 % (37.0-47.0); Hemoglobin 12.2 g/dL (12.0-15.0); Mean Corpuscular HGB Conc 31.9 g/dl (32-36); Mean Corpuscular Hemoglobin 29.6 pg (26-34); Mean Platelet Volume 9.4 fl (7.4-10.4); Platelet Count Result 230 k/mm3 (150-375); Red Blood Count 4.12 M/mm3 (4.2-5.4); Red Cell Distribution Width 13.9 % (11.5-14.5)
[2024-07-31 08:21] LABS: Alanine Aminotransferase 22 U/L (6-35); Alkaline Phosphatase 46 U/L (38-126); Anion Gap 8 mmol/L (4-12); Aspartate Amino Transferase 30 U/L (14-36); Bilirubin,Total 0.6 mg/dL (0.2-1.3); Blood Urea Nitrogen 11 mg/dL (7-17); Calcium 9.1 mg/dL (8.4-10.2); Carbon Dioxide 29 mmol/L (22-30); Chloride 102 mmol/L (98-107); Estimated CRCL calculation 51 ml/min; Estimated Glomerular Filt Rate > 60; Glucose 94 mg/dL (65-110); Magnesium 1.9 mg/dL (1.6-2.3); Potassium 4.1 mmol/L (3.4-5.0); Sodium 139 mmol/L (137-145)
--- OUTSIDE RECORDS SUMMARY | 2024-07-31 08:26 | XMS_ITS | Clinical Summary ---
Author Organization [facility] D Address [address] [place] [address] Care Team Providers Care Escrow Assistant Name Role Phone Sincere Goodwin MD Unavailable [phone] Kate Cid MD Primary Care Provider + Richard De La Torre NP Unavailable [phone] Allergies Active Allergy Reactions Criticality Noted [...] (81 mg total) by mouth daily Active diclofenac sodium (VOLTAREN) 1 % gel Apply topically Acti ve Active Problems Problem Noted Date Diagnosed Date [...] year. Assessment & Plan (03/18/2020 3:03 PM WASH RACK OPERATOR): We will continue to monitor her headache pattern. We will consider surgical, if the patient is to clinically decompensate or the clinical course is suggestive of such testing. 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 With her upcoming surgery, will obtain a pharmacologic MPI for preoperative clearance. Assessment & Plan (03/17/2024 8:24 AM WASH RACK OPERATOR): Previously characterized as mild. He had not been taking an aspirin due to a possible allergy but now reports she was tolerating a leave on a p.r.n. basis so reasonable to consider her for daily aspirin use. Continue atorvastatin. Assessment & Plan (03/10/2023 1:46 PM WASH RACK OPERATOR): Previously characterized as mild. Continue atorvastatin. Possible risk of allergic reaction to aspirin. Assessment & Plan (01/02/2022 3:36 PM CDT): Previously characterized as mild. No symptoms on her current medical regimen. Stopped aspirin and Lipitor for unclear reasons. Assessment & Plan (02/28/2019 1:32 PM WASH RACK OPERATOR): Mild coronary artery disease, asymptomatic. She is no longer on aspirin because of being on Eliquis. She has a history of microvascular angina which is quiescent on verapamil. If any back surgery is necessary, she is cleared. Assessment & Plan (02/28/2018 2:01 PM WASH RACK OPERATOR): Asymptomatic. 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 Assessment & Plan (03/10/2023 1:47 PM WASH RACK OPERATOR): Currently well controlled. Continue current prescription medications. Assessment & Plan (01/02/2022 3:48 PM CDT): Controlled. Continue current prescription medications. Assessment & Plan (02/27/2021 2:57 PM WASH RACK OPERATOR): Blood pressure is controlled on her current regimen of Nadolol 40 mg daily and verapamil 120 mg daily. Assessment & Plan (02/27/2020 12:10 PM WASH RACK OPERATOR): Blood pressure is adequately controlled on current regimen. No change was made. Assessment & Plan (02/28/2019 1:31 PM WASH RACK OPERATOR): Blood pressure is adequately controlled on current regimen. No change was made. Assessment & Plan (02/28/2018 2:03 PM WASH RACK OPERATOR): Blood pressure is adequately controlled on current regimen. No change was made. Assessment & Plan (02/22/2017 6:37 PM WASH RACK OPERATOR): Blood pressure is not well controlled. I [...] made. Assessment & Plan (03/10/2023 1:46 PM WASH RACK OPERATOR): Lipid panel far out of range. Her total triglycerides are greater than 650. She does have a history of diabetes but to what extent it is controlled is unclear to me. Will obtain a fasting lipid panel for further clarity. Assessment & Plan (02/27/2021 2:58 PM WASH RACK OPERATOR): Continue atorvastatin Assessment & Plan (02/27/2020 12:10 PM WASH RACK OPERATOR): On chronic lipid lowering therapy with good control. No changes made. Assessment & Plan (02/28/2019 1:31 PM WASH RACK OPERATOR): On chronic lipid lowering therapy with good control. No changes made. Assessment & Plan (02/28/2018 2:02 PM WASH RACK OPERATOR): LDL today is significantly higher than last year. She admits that she has not been taking her atorvastatin faithfully because she g ets tired of taking medicine . I reviewed with her last year's results and this year's results and encouraged her to take it daily as prescribed. Assessment & Plan (02/22/2017 6:38 PM WASH RACK OPERATOR): On chronic lipid lowering therapy with good control. No changes made. 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 checks blood sugar 2-3 times per week Primary osteoarthritis of left hip 04/22/2016 Microvascular angina 02/12/2014 Overview (07/16/2016): Angina Assessment & Plan (03/17/2024 8:24 AM WASH RACK OPERATOR): Diagnosis not well established but no symptoms on verapamil. Continue. Assessment & Plan (03/10/2023 1:47 PM WASH RACK OPERATOR): Unclear how this was formally documented however she is doing well on her current regimen will not make any adjustments at this time. Assessment & Plan (02/27/2021 2:56 PM WASH RACK OPERATOR): Asymptomatic. She has been on verapamil for a long time for this, and it appears to be working. She is not on aspirin because of being on Eliquis. Assessment & Plan (02/27/2020 12:10 PM WASH RACK OPERATOR): Asymptomatic on beta-holly therapy. Bleeding internal hemorrhoids 07/25/2010 Elevated d-dimer Pain of right lower extremity Resolved Problems Problem Noted Date Diagnosed Date Resolved Date Headache disorder 12/11/2019 11/10/2023 Assessment & Plan (03/12/2023 1:24 PM WASH RACK OPERATOR): Ms. Mccarty has history of headaches that [...] months Assessment & Plan (02/26/2021 11:41 AM WASH RACK OPERATOR): Ms. Mccarty has history of headaches that [...] months Assessment & Plan (03/18/2020 3:01 PM WASH RACK OPERATOR): Ms. Mccarty has history of headaches that [...] Encounters Date Type Department Care Team Description 07/25/2024 7:21 AM CDT - 07/25/2024 11:59 PM CDT Hospital Encounter [facility] [address] [place] [id number] Richard De La Torre, DEENA Spondylosis of lumbar region without myelopathy or radiculopathy (Primary Dx); Myofascial pain; Cervicalgia Discharge Disposition: Discharge to home or self care 06/22/2024 7:14 AM CDT - 06/22/2024 11:59 PM CDT Hospital Encounter [facility] [address] [place] [id number] Richard De La Torre, DEFECTIVE CIGARETTE SLITTER Myofascial pain (Primary Dx); Myalgia; Cervicalgia Discharge Disposition: Discharge to home or self care 06/06/2024 Telephone [facility] [address] [facility] [address] [place] [address] [place] [address] Brandon Olivier imaging due 06/06/2024 Orders Only [facility] [address] 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 With her upcoming surgery, will obtain a pharmacologic MPI for preoperative clearance. 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 10/28/2021 PMR (polymyalgia rheumatica) 12/11/2019 Bilateral sacroiliitis 08/10/2023 Arthritis 10/25/2017 Cervicalgia 08/10/2023 Headache disorder [...] on file Legal Sex Female 9:09 PM WASH RACK OPERATOR Gender Identity Not on file Sexual Orientation Not on file Obstetrics History Last Filed Vital Signs Vital Sign Reading Time Taken Comments Blood Pressure 148/65 07/25/2024 8:18 AM CDT Pulse 59 07/25/2024 8:18 AM CDT Temperature 36.3 C (97.3 F) 06/22/2024 7:51 AM CDT Respiratory Rate 16 06/22/2024 7:32 AM CDT Oxygen Saturation 100% 07/25/2024 8:18 AM CDT Inhaled Oxygen Concentration - - Weight 59 kg (130 lb) 03/17/2024 8:01 AM WASH RACK OPERATOR Height 170.2 cm (5' 7 ) 03/17/2024 8:01 AM WASH RACK OPERATOR Body Mass Index 20.36 03/17/2024 8:01 AM WASH RACK OPERATOR Plan of Treatment Health Maintenance Due Date Last Done Comments Albumin Creatinine Ratio, Urine 1945 Depression Screening 1945 Hemoglobin A1C 1943 Osteoporosis Screening-Bone Density Scan 1945 Dilated Eye Exam 1943 Foot Exam 1943 DTaP/Tdap/Td Vaccine (1 - Tdap) 12/19/1954 Hepatitis B Screening 12/19/1961 Pneumococcal vaccine 65+ (1 of 2 - PCV) 12/19/1962 Well Visit 65+ 12/19/2008 Zoster Vaccine (2 of 3) 06/23/2012 04/28/2012 eGFR 01/30/2023 01/30/2022, 11/2020, 03/29/2020, Additional history exists Lipid Panel 03/19/2024 03/19/2023, 12/12, 02/27/2020, Additional history exists Influenza Vaccine (Season Ended) 2024 01/13/2019, 01/14/2018, 01/12/2017 Fall Risk Assessment 07/25/2025 07/25/2024 Medical Devices Implanted Type Area Photo Journalist Device Identifier Shelf Expiration Date Model / Serial / Lot Hardware Lumbar-Sac ral Spine Joint Bilateral: Hip Description:bilateral hips r eplacement Wires Face Description:TMJ wires Procedures Procedure Name Priority Date/Time Associated Diagnosis Comments LIPID PANEL Routine 03/19/2023 6:58 AM WASH RACK OPERATOR Hyperlipidemia, unspecified hyperlipidemia type EGFR STAT 01/30/2022 8:44 PM CDT from Last 3 Months or Most Recently Relevant to Health Maintenance Results * (ABNORMAL) Lipid panel (03/19/2023 6:58 AM WASH RACK OPERATOR) Cholesterol 140 <200 mg/dL [facility] HDL 37(L) > OR = 50 mg/dL [facility] Triglycerides 102 <150 mg/dL [facility] LDL 83 mg/dL (calc) [facility] Comment: Reference range: <100 Desirable range <100 mg/dL for primary prevention; <70 mg/dL for patients with CHD or diabetic patients with > or = 2 CHD risk factors. LDL-C is now calculated using the J Luis calculation, which is a validated novel method providing better accuracy than the Friedewald equation in the estimation of LDL-C. Andres SS et al. ANTELMO. 2013;310(97): 7568-0276 (http://education.bettercodes.org/faq/XVP828) Chol/HDL ratio 3.8 <5.0 (calc) [facility] Non-HDL, (LDL+VLDL) 103 <130 mg/dL (calc) [facility] Comment: For patients with diabetes plus 1 major ASCVD risk factor, treating to a non-HDL-C goal of <100 mg/dL (LDL-C of <70 mg/dL) is considered a therapeutic option. Blood 03/19/2023 6:58 AM WASH RACK OPERATOR 03/19/2023 6:59 AM WASH RACK OPERATOR us Dwight Champion MD LAB BLOOD ORDERABLES F inal Result [facility] [address] [address] [facility] [place], [place] [address] * eGFR (01/30/2022 8:44 PM CDT) eGFR 84 mL/min/1. 73 m2 [facility] Comment: Interpretive Data Reference Interval Normal >/= 90 mL/min/1.73m2 Mildly decreased* 60 - 89 mL/min/1.73m2 Mildly to moderately decreased 45 - 59 mL/min/1.73m2 Moderately to severely decreased 30 - 44 mL/min/1.73m2 Severely decreased 15 - 29 mL/min/1.73m2 Kidney Failure < 15 mL/min/1.73m2 *Relative to young adult level Estimated glomerular [...] LAB BLOOD ORDERABLES F inal Result [facility] [address] Department [place] [address] from Last 3 Months or Most Recently Relevant to Health Maintenance Insurance MEDICARE [facility] MEDICARE [facility] MEDICARE BLUE CROSS MEDICARE SUPPLEMENT Advance Directives For more information, please contact: [phone] * Full Code (Latest Code Status on File) Date Activated Date Inactivated Comments 01/10/2018 1:08 AM 01/10/2018 4:06 PM Care Teams Escrow Assistant Relationship Specialty Start Date End Date Kate Cid MD [address] [facility] [place] [address] PCP - General Family Medicine 12/30/23 Sincere Goodwin MD Surgeon Vascular Surgery 01/10/18 [place] [address] [address] [facility] [address] [place] [address] Nurse Practitioner Pain Management 01/13/24
--- OUTSIDE RECORDS SUMMARY | 2024-07-31 08:26 | XMS_ITS | Encounter Summary ---
Author Organization [facility] Address [address] [address] Care Team Providers Care Maintenance Planning Clerk Name Role Phone Monica Forbes MD Primary Care Provider [phone] Ismael Cid MD Primary Care Provider [phone] Sincere Goodwin MD Unavailable [phone] Monica Forbes MD Primary Care Provider [phone] Florina Bailey DO Primary Care Provider + Kate Cid MD Primary Care Provider + Richard De La Torre STUDENT SERVICES REP Unavailable [phone] Encounter Details Date Type Department Care Team (Latest Contact Info) Description 04/14/2016 Orders Only [facility] Cardiology ProviderEmelina MD [address] [place] [address] Social History Tobacco Use Types Packs/Day Years Used Date Smoking Tobacco: Never Alcohol Use Standard Drinks/Week Comments No 0 (1 standard drink = 0.6 oz pur e alcohol) Comments Unknown Sex and Gender Information Value Date Recorded Sex Assigned at Not on file Legal Sex Female 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 PROPERTY 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 ASSESSOR Gender Identity Not on file Sexual Orientation [...] on filedocumented in this encounter Care Teams Maintenance Planning Clerk Relationship Specialty Start Date End Date Monica Forbes MD [address] [place] [address] PCP - General 01/16/13 01/08/18 Ismael Cid MD [address] [place] [address] PCP - General Family Medicine 01/09/18 02/27/18 Monica Forbes MD [address] [place] [address] PCP - General Family Medicine 02/28/18 10/28/21 Florina Bailey DO [address] [place] [address] PCP - General Family Medicine 10/29/21 12/29/23 Kate Cid MD [address] [place] [address] [place] [address] PCP - General Family Medicine 12/30/23 Sincere Goodwin MD [address] [place] [address] Surgeon Vascular Surgery 01/10/18 Richard De La Torre STUDENT SERVICES REP [id number] [address] [place] [address] Nurse Practitioner Pain Management 01/13/24 documented as of this encounter
--- OUTSIDE RECORDS SUMMARY | 2024-07-31 08:26 | XMS_ITS ---
Author Name Faisal Lorenzo Monica Address [address] [place] [address] Phone [phone] Organization [facility] Address [address] [place] [address] Phone [phone] Care Team Providers Care Development And Planning Engineer Name Role Phone Faisal Lorenzo Unavailable [phone] Functional Status No Results Mental Status No Results Allergies and Intolerances Name Onset Date Reaction Severity Sulfa (Sulfonamide Antibiotics) (Allergy) Sat 14:57:00 EST 2017 hydrocodone (Allergy) Sat Apr 25 14:56:00 EST 20 17 Medications Medication Directions Start Date End Date cyclobenzaprine 5 mg tablet 5mg TABLET O ral PRN Every 8 Hours pain WedMay 04 15:00:00 EST 2016May 06 01:00:00 EST 2016 nitrofurantoin monohydrate/macrocrystals 100 mg capsule 100mg CAPSULE Oral Every 12 Hours for 7 Days UTI WedMay 03 20:00:00 EST 2016May 06 01:00:00 EST 2016 Florastor 250 mg capsule 500mg CAPSULE O ral 2 Times Daily for 14 Days probiotics WedMay 03 21:00:00 EST 2016May 06 01:00:00 EST 2016 zolpidem 5 mg tablet 5mg Oral 1 Time Bibiana ly Insomnia WedApr 29 21:00:00 EST 2016May 06 01:00:00 EST 2016 hydrocortisone acetate 25 mg rectal suppository 25mg SUPPOSITORY, RECTAL Rectal PRN 2 Times Daily hemrroids WedApr 29 21:00:00 2016May 06 01:00:00 EST 2016 TUBErsol 5 tub. unit/0.1 mL intradermal injection solution 0.1 ml VIAL (ML) Intradermal 1 Time Weekly for 2 Weeks (PPD) 1st injection upon admission. Read after 72 hours and give 2nd injection 1 week after the 1st if result is negative. If positive result, proceed with chest x-ray to rule out active disease. WedApr 28 13:00:00 2016May 06 01:00:00 2016 TUBErsol 5 tub. unit/0.1 mL intradermal injection solution Read Results VIAL (ML) Other 1 Time Weekly for 2 Weeks Read results 72 hours after 1st and 2nd 1 week apart. If positive do chest x-ray to rule out active disease. WedApr 28 13:00:00 2016May 06 01:00:00 2016 multivitamin with minerals tablet 1 tablet TABLET Oral 1 Time Daily supplement WedApr 28 10:00:00 2016May 06 01:00:00 2016 ondansetron HCl 4 mg tablet 4mg TABLET O ral PRN Every 8 Hours nausea WedApr 27 12:00:00 2016May 06 01:00:00 2016 diazePAM 5 mg tablet 5mg Oral PRN Every 8 Hours muscle spasm WedApr 27 21:00:00 2016May 04 14:27:00 2016 morphine ER 15 mg tablet,extended release 15mg Oral PRN Every 12 Hours Pain WedApr 27 21:00:00 2016May 06 01:00:00 2016 oxyCODONE-acetaminophen 5 mg-325 mg tablet 1-2 tabs Oral PRN Every 4 Hours WedApr 27 21:00:00 2016May 06 01:00:00 2016 Eliquis 2.5 mg tablet 2.5mg TABLET Oral 2 Times Daily for 34 Days DVT prophylactic Sat Apr 25 15:00:00 2016May 06 01:00:00 2016 diazePAM 5 mg tablet 5mg TABLET Oral PRN 3 Times Daily Anxiety Sat Apr 25 15:00:00 2016Apr 25 15:50:00 2016 Colace 100 mg capsule 100mg CAPSULE Oral 2 Times Daily Constipation Sat Apr 25 15:00:00 EST 2016May 06 01:00:00 2016 Dilaudid 2 mg tablet 2mg TABLET Oral PRN Every 4 Hours Pain WedApr 25 15:00:00 2016Apr 25 16:47:00 EST 2016 Milk of Magnesia 400 mg/5 mL oral suspension 30ml SUSPENSION, ORAL (FINAL DOSE FORM) Oral PRN 1 Time Daily Constipation Sat Apr 25 15:00:00 EST 2016May 06:00:00 EST 2016 Senna Laxative-Stool Softener 8.6 mg-50 mg tablet 1 tab TABLET Oral 2 Times Daily Constipation Sat Apr 25 15:00:00 EST 2016May 06:00:00 EST 2016 acetaminophen 325 mg tablet 325mg TABLET Oral PRN 2 Times Daily Pain, Do not exceed 4grams/24 hours Sat Apr 25 15:00:00 EST 2016May 06:00:00 EST 2016 MAG-AL 200 mg-200 mg/5 mL oral suspension 15ml SUSPENSION, ORAL (FINAL DOSE FORM) Oral PRN Every 6 Hours Heartburn Sat Apr 25 15:00: EST 2016May 06:00:00 EST 2016 atorvastatin 40 mg tablet 40mg TABLET Or al 1 Time Daily Hyperlipidemia Sat Apr 25 15:00:00 EST 2016May 06:00:00 EST 2016 nadolol 40 mg tablet 40mg TABLET Oral 1 Time Daily HTN Sat Apr 25 15:00:00 EST 2016May 06:00:00 EST 2016 omeprazole 20 mg tablet,delayed release 20mg TABLET, DELAYED RELEASE (ENTERIC COATED) Oral 1 Time Daily GERD Sat Apr 25 15:00:00 EST 2016May 06:00:00 EST 2016 verapamil ER (SR) 120 mg tablet,extended release 120mg TABLET, EXTENDED RELEASE Oral 1 Time Daily HTN Sat Apr 25 15:00:00 EST 2016May 06:00:00 EST 2016 cetirizine 10 mg tablet 10mg TABLET Oral 1 Time Daily Allergies Sat Apr 25 15:00:00 EST 2016May 06:00:00 EST 2016 Ambien 5 mg tablet 5mg TABLET Oral 1 Ti me Daily Insomnia Sat Apr 25 15:00:00 EST 2016Apr 29 19:18:00 EST 2016 MS Contin 15 mg tablet,extended release 15mg TABLET, EXTENDED RELEASE Oral PRN Every 12 Hours Pain Sat Apr 25 15:00:00 EST 2016Apr 27 20:00:00 EST 2016 Percocet 5 mg-325 mg tablet 1-2tabs TABL ET Oral PRN Every 4 Hours Sat Apr 25 15:00:00 EST 2016Apr 27 20:01:00 EST 2016 diclofenac sodium 75 mg tablet,delayed release 75mg TABLET, DELAYED RELEASE (ENTERIC COATED) Oral 2 Times Daily for 30 Days WedApr 25 15:00:00 2016May 06 01:00:00 2016 Valium 5 mg tablet 5mg TABLET Oral PRN Every 8 Hours WedApr 25 15:00:00 2016Apr 27 19:57:00 2016 Problems Active Concerns * Aftercare following joint replacement surgery* Code: * Start Date: WedApr 25 00:00:00 2016 * End Date: * Text: * Presence of left artificial knee joint* Code: * Start Date: WedApr 25 00:00:00 2016 * End Date: * Text: * Type 2 diabetes mellitus without complications* Code: * Start Date: WedApr 25 00:00:00 2016 * End Date: * Text: * Essential (primary) hypertension* Code: * Start Date: WedApr 25 00:00:00 2016 * End Date: * Text: * Gastro-esophageal reflux disease without esophagitis* Code: * Start Date: WedApr 25 00:00:00 2016 * End Date: * Text: * Insomnia, unspecified* Code: * Start Date: WedApr 25 00:00:00 2016 * End Date: * Text: * Hyperlipidemia, unspecified* Code: * Start Date: WedApr 25 00:00:00 2016 * End Date: * Text: * 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
--- OUTSIDE RECORDS SUMMARY | 2024-07-31 08:26 | XMS_ITS | Referral Summary ---
Author Organization [facility] D Address [address] [place] [address] Care Team Providers Care Communications Superintendent Name Role Phone Sincere Goodwin MD Unavailable [phone] Kate Cid MD Primary Care Provider + Richard De La Torre NP Unavailable [phone] Encounters Date Type Department Care Team Description 07/25/2024 7:21 AM CDT - 07/25/2024 11:59 PM CDT Hospital Encounter [facility] [address] [place] [id number] Richard De La Torre NP Spondylosis of lumbar region without myelopathy or radiculopathy (Primary Dx); Myofascial pain; Cervicalgia Discharge Disposition: Discharge to home or self care 06/22/2024 7:14 AM CDT - 06/22/2024 11:59 PM CDT Hospital Encounter [facility] [address] [place] [id number] Richard De La Torre NP Myofascial pain (Primary Dx); Myalgia; Cervicalgia Discharge Disposition: Discharge to home or self care 06/06/[address] [facility] [address] [place] [address] 12th [place] [address] [place] [id number] [place], [place] imaging due 06/06/[address] [facility] [address] [facility] 12th [place] [address] [place] [phone] Kemal Manjarrez MD Pancreatic cyst (Primary Dx) from Last 3 Months Allergies Active Allergy [...] year. 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 With her upcoming surgery, will obtain a pharmacologic MPI for preoperative clearance. Assessment & Plan (03/17/2024 8:24 AM PUBLIC RELATIONS ASSISTANT): Previously characterized as mild. He had not been taking an aspirin due to a possible allergy but now reports she was tolerating a leave on a p.r.n. basis so reasonable to consider her for daily aspirin use. Continue atorvastatin. Assessment & Plan (03/10/2023 1:46 PM PUBLIC RELATIONS ASSISTANT): Previously characterized as mild. Continue atorvastatin. Possible risk of allergic reaction to aspirin. Assessment & Plan (01/02/2022 3:36 PM CDT): Previously characterized as mild. No symptoms on her current medical regimen. Stopped aspirin and Lipitor for unclear reasons. Assessment & Plan (02/28/2019 1:32 PM PUBLIC RELATIONS ASSISTANT): Mild coronary artery disease, asymptomatic. She is no longer on aspirin because of being on Eliquis. She has a history of microvascular angina which is quiescent on verapamil. If any back surgery is necessary, she is cleared. Assessment & Plan (02/28/2018 2:01 PM PUBLIC RELATIONS ASSISTANT): Asymptomatic. 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 Assessment & Plan (03/10/2023 1:47 PM PUBLIC RELATIONS ASSISTANT): Currently well controlled. Continue current prescription medications. Assessment & Plan (01/02/2022 3:48 PM CDT): Controlled. Continue current prescription medications. Assessment & Plan (02/27/2021 2:57 PM PUBLIC RELATIONS ASSISTANT): Blood pressure is controlled on her current regimen of Nadolol 40 mg daily and verapamil 120 mg daily. Assessment & Plan (02/27/2020 12:10 PM PUBLIC RELATIONS ASSISTANT): Blood pressure is adequately controlled on current regimen. No change was made. Assessment & Plan (02/28/2019 1:31 PM PUBLIC RELATIONS ASSISTANT): Blood pressure is adequately controlled on current regimen. No change was made. Assessment & Plan (02/28/2018 2:03 PM PUBLIC RELATIONS ASSISTANT): Blood pressure is adequately controlled on current regimen. No change was made. Assessment & Plan (02/22/2017 6:37 PM PUBLIC RELATIONS ASSISTANT): Blood pressure is not well controlled. I [...] made. Assessment & Plan (03/10/2023 1:46 PM PUBLIC RELATIONS ASSISTANT): Lipid panel far out of range. Her total triglycerides are greater than 650. She does have a history of diabetes but to what extent it is controlled is unclear to me. Will obtain a fasting lipid panel for further clarity. Assessment & Plan (02/27/2021 2:58 PM PUBLIC RELATIONS ASSISTANT): Continue atorvastatin Assessment & Plan (02/27/2020 12:10 PM PUBLIC RELATIONS ASSISTANT): On chronic lipid lowering therapy with good control. No changes made. Assessment & Plan (02/28/2019 1:31 PM PUBLIC RELATIONS ASSISTANT): On chronic lipid lowering therapy with good control. No changes made. Assessment & Plan (02/28/2018 2:02 PM PUBLIC RELATIONS ASSISTANT): LDL today is significantly higher than last year. She admits that she has not been taking her atorvastatin faithfully because she g ets tired of taking medicine . I reviewed with her last year's results and this year's results and encouraged her to take it daily as prescribed. Assessment & Plan (02/22/2017 6:38 PM PUBLIC RELATIONS ASSISTANT): On chronic lipid lowering therapy with good control. No changes made. 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 checks blood sugar 2-3 times per week Primary osteoarthritis of left hip 04/22/2016 Microvascular angina 02/12/2014 Overview (07/16/2016): Angina Assessment & Plan (03/17/2024 8:24 AM PUBLIC RELATIONS ASSISTANT): Diagnosis not well established but no symptoms on verapamil. Continue. Assessment & Plan (03/10/2023 1:47 PM PUBLIC RELATIONS ASSISTANT): Unclear how this was formally documented however she is doing well on her current regimen will not make any adjustments at this time. Assessment & Plan (02/27/2021 2:56 PM PUBLIC RELATIONS ASSISTANT): Asymptomatic. She has been on verapamil for a long time for this, and it appears to be working. She is not on aspirin because of being on Eliquis. Assessment & Plan (02/27/2020 12:10 PM PUBLIC RELATIONS ASSISTANT): Asymptomatic on beta-holly therapy. Bleeding internal hemorrhoids 07/25/2010 Elevated d-dimer Pain of right lower extremity Resolved Problems Problem Noted Date Diagnosed Date Resolved Date Headache disorder 12/11/2019 11/10/2023 Assessment & Plan (03/12/2023 1:24 PM PUBLIC RELATIONS ASSISTANT): Ms. Mccarty has history of headaches that [...] months Assessment & Plan (02/26/2021 11:41 AM PUBLIC RELATIONS ASSISTANT): Ms. Mccarty has history of headaches that [...] months Assessment & Plan (03/18/2020 3:01 PM PUBLIC RELATIONS ASSISTANT): Ms. Mccarty has history of headaches that [...] better headache control 3. Headache diary Immunizations Immunization Administration Dates Next Due Influenza, [...] on file Legal Sex Female 9:09 PM PUBLIC RELATIONS ASSISTANT Gender Identity Not on file Sexual Orientation [...] 59 kg (130 lb) 03/17/2024 8:01 AM PUBLIC RELATIONS ASSISTANT Height 170.2 cm (5' 7 ) 03/17/2024 8:01 AM PUBLIC RELATIONS ASSISTANT Body Mass Index 20.36 03/17/2024 8:01 AM PUBLIC RELATIONS ASSISTANT Plan of Treatment Not on file Medical Devices Implanted Type Area Mixer Tender Device Identifier Shelf Expiration Date Model / Serial / Lot Hardware Lumbar-Sac ral Spine Joint Bilateral: Hip Description:bilateral hips r eplacement Wires Face Description:TMJ wires Procedures Procedure Name Priority Date/Time Associated Diagnosis Comments LIPID PANEL Routine 03/19/2023 6:58 AM PUBLIC RELATIONS ASSISTANT Hyperlipidemia, unspecified hyperlipidemia type EGFR STAT 01/30/2022 8:44 PM CDT from Last 3 Months or Most Recently Relevant to Health Maintenance Results * (ABNORMAL) Lipid panel (03/19/2023 6:58 AM PUBLIC RELATIONS ASSISTANT) Cholesterol 140 <200 mg/dL [facility] [...] factors. LDL-C is now calculated using the Andres-Honey calculation, which is a validated novel method providing better accuracy than the Friedewald equation in the estimation of LDL-C. Andres SHEPARD et al. ANTELMO. 2013;310(19): 1819-5778 (http://education.[employer].Infusionsoft/faq/WOK003) Chol/HDL ratio 3.8 <5.0 (calc) [facility] Non-HDL, (LDL+VLDL) 103 <130 mg/dL (calc) [facility] Comment: For patients with diabetes plus 1 major ASCVD risk factor, treating to a non-HDL-C goal of <100 mg/dL (LDL-C of <70 mg/dL) is considered a therapeutic option. Blood 03/19/2023 6:58 AM PUBLIC RELATIONS ASSISTANT 03/19/2023 6:59 AM PUBLIC RELATIONS ASSISTANT Dwight Champion MD LAB BLOOD ORDERABLES F inal Result [employer] [address] [address] [id number] * eGFR (01/30/2022 8:44 PM CDT) Pathologist [facility] eGFR 84 mL/min/1. 73 m2 [facility] Comment: Interpretive Data Reference Interval Normal >/= [...] MD LAB BLOOD ORDERABLES F inal Result [facility] [address] Department [place] [address] from Last 3 Months or Most Recently Relevant to Health Maintenance Insurance MEDICARE [facility] MEDICARE [facility] MEDICARE [facility] MEDICARE SUPPLEMENT Advance Directives For more information, please contact: [phone] * Full Code (Latest Code Status on File) Date Activated Date Inactivated Comments 01/10/2018 1:08 AM 01/10/2018 4:06 PM Care Teams Communications Superintendent Relationship Specialty Start Date End Date Kate Cid MD [address] [address] PCP - General Family Medicine 12/30/23 Sincere Goodwin MD Surgeon Vascular Surgery 01/10/18 [place] [address] [address] [place] [address] Nurse Practitioner Pain Management 01/13/24
--- OUTSIDE RECORDS SUMMARY | 2024-07-31 08:26 | XMS_ITS | Continuity of Care Document ---
Author Organization [facility] Address [address] [place] [address] Phone Care Team Providers Care Cheese Supervisor Name Role Phone Ishaan Dow MD Unavailable Unavailable Procedures Procedure Date LUMBAR SPINE CT W CONTRAST <content ID='ProcedureDescri ption_1' xmlns='urn:hl7-org:v3'>Myelography Lumbar Inject, Incl Radiological S&I; Lumbosacral</content> SURGICAL TRAY LOW OSMOLAR CONTRAST (200 TO 299 MG IODI NE) Advance Directives Directive Yes / No Effective Date File Name No Information Encounters Encounter Description Practice Location Reason(s) For Visit Diagnoses Date Provider Providers Copied on Encounter [facility], [address], [place], [place], [id number], tel:[phone] [facility] No Information Paloma Quiros. [address] [place], [place], [id number], [place]. tel:[phone] Referring Provider: Jeremías Huber, [address], [place], [address]. tel:[phone] Family History Family Member Type Diagnosis Age At Onset No Information Payers Payer name Insurance type Covered republican ID Authoriza tijohn(s) MEDICARE MB [id number] [facility] BL [id number] Social History Type Description Quantity Date Captured Comments Sex Female Smoking Status No Information Chief Complaint And Reason For Visit No Information Reason For Referral Reason For Referral No Information History Of Present Illness Encounter Date Complaint History Of Prese nt Illness No Information Functional Status Date Functional Assessmen t No Information Instructions Date Instruction Additional Infor mation No Information Assessments Type Assessment Date No Information Patient Care Teams Name Effective Dates (start - stop) Status Members No Information
--- OUTSIDE RECORDS SUMMARY | 2024-07-31 08:26 | XMS_ITS | Clinical Summary ---
Author Organization [facility] Address [address] [place] [address] Care Team Providers Care Asbestos Wire Finisher Name Role Phone Unavailable Primary Care Provider [...] times per week Arthritis Coronary arteriosclerosis in [place] artery Overview (04/28/2017): Last Assessment & Plan: [...] Comments Blood Pressure 120/69 04/29/2017 7:30 AM WARRANT CLERK Pulse 82 04/29/2017 7:30 AM WARRANT CLERK Temperature 36.4 C (97.6 F) 04/29/2017 7:30 AM WARRANT CLERK Respiratory Rate 18 04/29/2017 7:30 AM WARRANT CLERK Oxygen Saturation 100% 04/29/2017 7:30 AM WARRANT CLERK Inhaled Oxygen Concentration - - Weight 75.3 kg (166 lb) 04/29/2017 5:33 AM WARRANT CLERK Height 170.2 cm (5' 7 ) 04/25/2017 5:55 AM WARRANT CLERK Body Mass Index 26 04/25/2017 5:55 AM WARRANT CLERK Plan of Treatment Not on file Advance Directives * Full Resuscitation (Latest Code Status on File) Date Activated Date Inactivated Comments 04/24/2017 8:45 PM 04/29/2017 4:42 PM
--- OUTSIDE RECORDS SUMMARY | 2024-07-31 08:26 | XMS_ITS | Encounter Summary ---
Author Organization [facility] Address [address] [place] [address] Phone Care Team Providers Care Special Education Coordinator Name Role Phone Monica Forbes MD Primary Care Provider [phone] Ismael Cid MD Primary Care Provider [phone] Sincere Goodwin MD Unavailable [phone] Monica Forbes MD Primary Care Provider [phone] Florina Bailey DO Primary Care Provider + Kate Cid MD Primary Care Provider + Richard De La Torre NP Unavailable [phone] Encounter Details Date Type Department Care Team (Late st Contact Info) Description 10/19/2017 Telephone [facility] 8th [place] [address] [place] [id number] Angela Thornton Social History Tobacco Use Types Packs/Day Years Used Date Smoking Tobacco: Never Smokeless Tobacco: Never Alcohol Use Standard Drinks/Week Comments No 0 (1 standard drink = 0.6 oz pur e alcohol) Comments Unknown Sex and Gender Information Value Date Recorded Sex Assigned at Not on file Legal Sex Female 9:09 PM DIRECTOR OF ENROLLMENT Gender Identity Not on file Sexual Orientation Not on file documented as of this encounter Plan of Treatment Not on file documented as of this encounter Visit Diagnoses Not on filedocumented in this encounter Care Teams Special Education Coordinator Relationship Specialty Start Date End Date Monica Forbes MD [address] [place], [place] [id number] PCP - General 01/16/13 01/08/18 Ismael Cid MD [address] [place] [address] PCP - General Family Medicine 01/09/18 02/27/18 Monica Forbes MD [address] [place] [address] PCP - General Family Medicine 02/28/18 10/28/21 Florina Bailey DO [address] [place] [address] PCP - General Family Medicine 10/29/21 12/29/23 Kate Cid MD [address] [place] [address] [place] [address] PCP - General Family Medicine 12/30/23 Sincere Goodwin MD [address] [place] [address] Surgeon Vascular Surgery 01/10/18 [place] [address] [address] [place] [address] Nurse Practitioner Pain Management 01/13/24 documented as of this encounter
--- OUTSIDE RECORDS SUMMARY | 2024-07-31 08:26 | XMS_ITS ---
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
--- OUTSIDE RECORDS SUMMARY | 2024-07-31 08:26 | XMS_ITS | Clinical Summary ---
Author Organization [facility] Address [address] [place] [address] Care Team Providers Care Mink Farmer Name Role Phone Katerine Caro MD Unavailable [phone] Kate Cid MD Primary Care Provider [phone] Source Comments [facility],non-owned Affiliates and Associated Physician Practices is amultiple site organization consisting of ambulatory clinics and hospital sitesin [place], [place], [place] and [place]. This disclosure is being madepursuant to the Care Everywhere program and may not contain all information available regarding this patient. Last updated 17.[facility] Allergies Active Allergy Reactions Criticality Noted Date Comments Hydrocodone GI Discomfort Low 04/22/2016 nausea Other reaction(s): Stomach upset nausea Sulfa Antibiotics Unknown Medium 11/21/2014 Other reaction(s): Urticaria red welts Sulfa Drugs Urticaria,Unknown Medium 11/21/2014 red welts Other reaction(s): Urticaria red welts Medications * Be aware that medications may not be up to date on this document. Alwaysverify current medications with the patient. zolpidem (AMBIEN) 5 MG tabletIndicatio ns:Rotator cuff syndrome, right,Pain in joint, shoulder region, right,Cervicalg ia,Cervical radicular pain,DJD (degenerative joint disease), cervical,Partia l tear of rotator cuff,Labral tear of shoulder, right, sequela Take 1 (one) tablet by mouth at bedtime 11/02/2014 Active atorvastatin (LIPITOR) 40 MG tablet Take 1 (one) tablet by mouth daily with lunch 01/06/2016 Active lisinopril (PRINIVIL; ZESTRIL) 10 MG tablet Take 1 (one) tablet by mouth once daily Active verapamil SR 24hr (VERELAN) 120 MG capsule Activ e pantoprazole EC (Protonix) 40 MG tablet Take [...] Recorded Patient Health Questionnaire-2 Score 0 02/04/2024 Comments No Sex and Gender Information Value Date Recorded Sex Assigned at Not on file Legal Sex Female 6:24 AM RETAIL KEY HOLDER Gender Identity Not on file Sexual Orientation Not on file Occupation Industry Job Start Date Job End Date RETIRED Not on file Not on file Not on file Last Filed Vital Signs Vital Sign Reading Time Taken Comments Blood Pressure 140/72 02/04/2024 9:54 AM CDT Pulse 62 02/04/2024 9:54 AM CDT Temperature 36.8 C (98.2 F) 04/13/2018 10:17 AM RETAIL KEY HOLDER Respiratory Rate 18 04/24/2017 3:34 PM RETAIL KEY HOLDER Oxygen Saturation 97% 02/04/2024 9:54 AM CDT Inhaled Oxygen Concentration - - Weight 59.1 kg (130 lb 6.4 oz) 02/04/2024 9:54 A M CDT Height 170.2 cm (5' 7 ) 02/04/2024 9:54 AM CDT Body Mass Index 20.42 02/04/2024 9:54 AM CDT Plan of Treatment Upcoming Encounters Date Type Department Care Team (Late st Contact Info) Description 12/05/2024 2:15 PM CDT Office Visit [facility] Medical [facility] - Endocrinology [address] [place] [address] [phone] Anup James MD [address] [place] [address] Health Maintenance Due Date Last Done Comments BONE DENSITY TESTING 1945 MEDICARE AWV 12 MONTHS 1945 DTAP/TDAP/TD VACCINES (1 - Tdap) 12/19/1962 PNEUMOCOCCAL VACCINE 50+ (1 of 2 - PCV) 12/19/1962 ZOSTER VACCINE (1 of 2) 12/19/1993 DIABETES RETINOPATHY SCREENING 09/29/2018 Respiratory Syncytial Virus (RSV) Vaccine Pt: or over 60 yrs (1 - 1-dose 75+ series) 12/19/2018 COVID-19 VACCINE ( - season) 2023 DIABETES-SERUM CREATININE 02/03/20242022, 01/30/2022, 01/30/2022, Additional history exists DEPRESSION SCREENING 04/12/2024 02/04/2024 DIABETES - URINE PROTEIN SCREENING 04/12/2024 02/02/2023 DIABETES-HGB A1C 08/04/2024 02/04/2024, , 04/23/2016 INFLUENZA VACCINE (Season Ended) 2024 01/13/2019, 01/14/2018 DIABETES-FOOT EXAM WITH MONOFILAMENT 02/03/2025 02/04/2024 HEPATITIS B VACCINE Aged Out No longe r eligible based on patient's age to complete this topic HIB VACCINE Aged Out No longer eligi ble based on patient's age to complete this topic HPV VACCINE Aged Out No longer eligi ble based on patient's age to complete this topic MENINGOCOCCAL (Group B) VACCINE SHARED DECISION-MAKING Aged Out No longer eligible based on patient's age to complete this topic MENINGOCOCCAL GROUPS A/C/Y/W VACCINE Aged Out No longer eligible based on patient's age to complete this topic Medical Devices Implanted Type Area Government Employee Device Identifier Shelf Expiration Date Model / Serial / Lot Acetabular Shell 52mm X 46mm Implanted:Qty: 1 on 04/22/2016 by Wang Fuentes MD at [facility] Left: [employer] [id number] 11/18/2025 [id number] / / [id number] Modular Head Standard Neck Implanted:Qty: 1 on 04/22/2016 by Wang Fuentes MD at [facility] Left: [employer] [id number] 03/07/2026 [id number] / / [id number] Stem Fem 111mm Ty 1 Pps Tprlk Implanted:Qty: 1 on 04/22/2016 by Wang Fuentes MD at [facility] Left: [employer] 03/19/2026 [id number] / / [id number] Dual Mobility Bearing E1 Antioxidant 28mm Implanted:Qty: 1 on 04/22/2016 by Wang Fuentes MD at [facility] Left: [employer] 02/23/2021 [id number] / / [id number] Cup Actb 52mm 46mm M2a Mg Trspk Hip Strl Implanted:Qty: 1 on 04/21/2017 by Wang Fuentes MD at [facility] Right: Hip [employer] 12/12/2019 [id number] / / [id number] Head Fem Std Ofst 28mm Hip Ty 1 Cocr G7 Implanted:Qty: 1 on 04/21/2017 by Wang Fuentes MD at [facility] Right: Hip [employer] 02/25/2027 [id number] / / [id number] Stem Fem 109mm Ty 1 Pps Tprlk Implanted:Qty: 1 on 04/21/2017 by Wang Fuentes MD at [facility] Right: Hip [employer] 01/19/2027 [id number] / / [id number] Dual Mobility Bearing Implanted:Qty: 1 on 04/21/2017 by Wang Fuentes MD at [facility] Right: Hip [employer] 07/30/2021 [id number] / / [id number] Procedures Procedure Name Priority Date/Time Associated Diagnosis Comments HEMOGLOBIN A1C - POINT OF CARE (AMB) Routine 02/04/2024 10:21 AM CDT Type 2 diabetes mellitus without complication, without long-term current use of insulin MICROALB/CREAT RATIO URINE RANDOM PANEL Routine 02/02/2023 7:32 AM CDT Type 2 diabetes mellitus without complication, without long-term current use of insulin BASIC METABOLIC PANEL (CALCIUM TOTAL) Routine 02/02/2023 7:32 AM CDT Type 2 diabetes mellitus without complication, without long-term current use of insulin from Last 3 Months or Most Recently Relevant to Health Maintenance Results * HEMOGLOBIN A1C - POINT OF CARE (AMB) (02/04/2024 10:21 AM CDT) Hemoglobin A1c POCT 5.8 % Expiration Date 12/01 Lot # [id number] QC Verified Yes Yes Blood BLOOD SPECIMEN / Unknown 02/04/2024 10:21 AM CDT Anup James MD LAB - POINT OF CARE ORDERABL ES Final Result * MICROALB/CREAT RATIO URINE RANDOM PANEL (02/02/2023 7:32 AM CDT) Creatinine Urine 80 20 - 275 mg/dL [facility] Microalbumin Urine 0.4 mg/dL [facility] Comment: Reference Range Not established Microalbumin/Creat inine Ratio 5 <30 mcg/mg creat [facility] Comment: The ADA defines abnormalities in albumin excretion as follows: Albuminuria Category Result (mcg/mg creatinine) Normal to Mildly increased <30 Moderately increased 30-299 Severely increased > OR = 300 The ADA recommends that at least two of three specimens collected within a 3-6 month period be abnormal before considering a patient to be within a diagnostic category. Test Performed at: [place] [address] VIKKI ANDREW MD Urine URINE SPECIMEN OBTAINED BY CLEAN CATCH PROCEDURE / Unknown 02/02/2023 7:32 AM CDT 02/02/2023 7:33 AM CDT Anup James MD LAB - URINE CHEMISTRY ORDERA BLES Final Result [facility] [id number] [address] * (ABNORMAL) BASIC METABOLIC PANEL (BMP) (02/02/2023 7:32 AM CDT) Pathologist [facility] Glucose 104(H) 65 - 99 mg/dL [facility] Comment: Fasting reference interval For someone without known diabetes, a glucose value between 100 and 125 mg/dL is consistent with prediabetes and should be confirmed with a follow-up test. BUN 13 7 - 25 mg/dL [facility] Creatinine 0.74 0.60 - 1.00 mg/dL [facility] eGFR by Cystatin C 82 > OR = 60 mL/min/1. 73m2 [facility] BUN/Creatinine Ratio SEE NOTE: 6 - 22 (calc) [facility] Comment: Not Reported: BUN and Creatinine are within reference range. Sodium 140 135 - 146 mmol/L [facility] Potassium 4.7 3.5 - 5.3 mmol/L [facility] Chloride 103 98 - 110 mmol/L [facility] CO2 28 20 - 32 mmol/L [facility] Calcium 9.6 8.6 - 10.4 mg/dL [facility] Comment: REPORT COMMENT: FASTING:YES Test Performed at: [place] [address] VIKKI ANDREW MD Blood BLOOD SPECIMEN / Unknown 02/02/2023 7:32 AM CDT 02/02/2023 7:33 AM CDT Anup James MD LAB - CHEMISTRY ORDERABLES F inal Result [facility] [id number] [place] [address] from Last 3 Months or Most Recently Relevant to Health Maintenance Insurance MEDICARE [facility] MEDICARE MEDICARE Advance Directives Documents on File Type Date Recorded Patient Aitchbone Breaker Expl anation Adv Directive/Living Will/POA 04/27/2016 6:52 PM * Full Code (Latest Code Status on File) Date Activated Date Inactivated Comments 04/27/2017 10:17 AM 04/29/2017 3:03 PM * Full Code Date Activated Date Inactivated Comments 04/21/2017 5:21 PM 04/24/2017 7:21 PM * Full Code Date Activated Date Inactivated Comments 04/22/2016 5:22 PM 04/25/2016 2:27 PM Care Teams Mink Farmer Relationship Specialty Start Date End Date Kate Cid MD [address] [place] [phone] PCP - General Family Medicine 02/04/24 [place] [address] [place] [address] Orthopedic Surgery 12/18/14
--- OUTSIDE RECORDS SUMMARY | 2024-07-31 08:26 | XMS_ITS | Encounter Summary ---
Author Organization [facility] Address 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
--- OUTSIDE RECORDS SUMMARY | 2024-07-31 08:26 | XMS_ITS | Clinical Summary ---
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 Gender Identity Not on file Sexual Orientation Not on file Plan of Treatment Health Maintenance Due Date Last Done Comments DTAP/TDAP/TD VACCINES (1 - Tdap) 12/19/1962 PNEUMOCOCCAL VACCINE 50+ YEARS (1 of 1 - PCV) 12/19/18 94 ZOSTER VACCINE (1 of 2) 12/19/1993 OSTEOPOROSIS SCREENING 12/19/2008 RSV VACCINE (60+ or ) (1 - 1-dose 75+ series) 12/19/2018 INFLUENZA VACCINE (#1) 2023 Insurance MEDICARE PART A AND B [facility] [place] [address] Care Teams Lymphedema Therapist Relationship Specialty Start Date End Date Charles Forbes MD [address] [place] [address] PCP - General Family Practice 09/04/09
--- OUTSIDE RECORDS SUMMARY | 2024-07-31 08:26 | XMS_ITS | Encounter Summary ---
Author Organization [facility] Address [address] [place] [address] Care Team Providers Care Capture Manager Name Role Phone Charles Forbes MD Primary Care Provider [phone] Encounter Details Date Type Department Care Team (Late st Contact Info) Description 08/07/2004 Outpatient Historical [facility] Support [facility]. (Adt Card[facility]) [address] 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
--- OUTSIDE RECORDS SUMMARY | 2024-07-31 08:26 | XMS_ITS | Continuity of Care Document ---
Author Organization [facility] Address [address] [place] [address] Phone Care Team Providers Care Broaching Machine Repairer Name Role Phone Lanre Naranjo MD Unavailable Unavailable Allergies, Adverse Reactions, Alerts Substance Reaction Status Criticality Sulfa (Sulfonamide Antibiotics) Active No Information Medications Medication Instructions Dosage Effective Dates (start - stop) Status Comments NADOLOL (unknown strength) Not Available - Active LISINOPRIL (unknown strength) Not Available - Active VERAPAMIL HCL (unknown strength) Not Available - Active OMEPRAZOLE (unknown strength) Not Available - Active CRESTOR (unknown strength) Not Available - Active AMBIEN (unknown strength) Not Available - Active Procedures Procedure Date OFFICE/OUTPATIENT VISIT NEW Advance Directives Directive Yes / No Effective Date File Name No Information Encounters Encounter Description Practice Location Reason(s) For Visit Diagnoses Date Provider Providers Copied on Encounter OFFICE/OUTPAT IENT VISIT [facility], [address], [address], [phone] [facility] Degenerative cervical disc [address] [place], [place], [id number] . tel: [phone] Family History Family Member Type Diagnosis Age At Onset No Information Payers Payer name Insurance type Covered republican ID Authoriza tion(s) No Information Social History Type Description Quantity Date Captured Comments Alcohol Use Details Unknown Caffeine Use Details Unknown Tobacco Use Status Never smoked tobacco 2013 Smoking Status Never smoker Non-Smoking Tobacco Use Details : No Details Available : No Details Available Sex Female Vital Signs Date / Time: Height Weight BMI Pulse Rate Blood Pressure Temperature Respiratory Rate Body Surface Area Head Circumference Head Circ. Percentile Wt./Hemant. Percentile BMI percentile Pulse Ox Inhaled Ox 9:19 AM 67.00 in 77.111 kg (170.00 lbs) 26.6 3 kg/m eter (2) 170/89 mm[Hg] Chief Complaint And Reason For Visit No Information Reason For Referral Reason For Referral No Information Plan Of Treatment Date Type Action Status Referral Ordered: RADEX SPI CRV COMPL W/OBLQ&FLEXION&/XTN STDS ordered History Of Present Illness Encounter Date Complaint History Of Prese nt Illness No Information Functional Status Date Functional Assessmen t No Information Instructions Date Instruction Additional Infor mation Activity as tolerated. Related t o Degenerative cervical disc Avoid prolonged bed rest. Relate d to Degenerative cervical disc Take medication as prescribed. R elated to Degenerative cervical disc Assessments Type Assessment Date assessment Degenerative cervical disc Patient Care Teams Name Effective Dates (start - stop) Status Members No Information
--- OUTSIDE RECORDS SUMMARY | 2024-07-31 08:26 | XMS_ITS | Continuity of Care Document ---
Author Organization [facility] Address [address] [place] [address] Phone Care Team Providers Care Superintendent Menagerie Name Role Phone Nigel Stallworth MD, MD Unavailable Unavailable Procedures Procedure Date CATARACT SURG W/IOL, 1 STAGE OFFICE/OUTPATIENT VISIT, [facility] OPHTHALMIC BIOMETRY SPECIAL EYE EXAM, INITIAL SPECIAL EYE EXAM, INITIAL Advance Directives Directive Yes / No Effective Date File Name No Information Encounters Encounter Description Practice Location Reason(s) For Visit Diagnoses Date Provider Providers Copied on Encounter Ophthalmology [facility], [address] [place] [address] [address], [place], [place], [id number], tel:[phone] [facility] No Information 3 Federica Manning. [address], [place], [place], [address] , [place]. tel:[phone] Referring Provider: Nigel Avelar, [address], [place], [address] . tel:[phone] OFFICE/OUTPA TIENT VISIT, [facility], [address], [place], [place], [address], tel:[phone] [facility] No Information 3 Federica Manning. [address], [place], [place], [address] , [place]. tel:[phone] Referring Provider: Nigel Avelar, [address], [place], [address] . tel:[phone] Family History Family Member Type Diagnosis Age At Onset No Information Payers Payer name Insurance type Covered green party ID Authoriza tijohn(s) [employer] [facility] [id number] Social History Type Description Quantity Date Captured [...]
[2024-07-31 08:32] LABS: Troponin I < 0.012 ng/mL (0.000-0.034)
[2024-07-31 08:33] LABS: Anisocytosis 1+; Band Neutrophils Percent 0 % (0-6); Lymphocytes Percent Manual 35 % (18-44); Monocytes Percent Manual 5 % (3-9); Neutrophils Percent Manual 60 % (46-73); Ovalocytes 1+; Partial Thromboplastin Time 27.8 Seconds (22.3-36.8); Platelet Estimate Adequate (Adequate); Prothrombin Time 14.1 Seconds (11.1-14.7); Schistocytes None Seen; Smudge Cells FEW; Total Cells Counted 100
[2024-07-31 08:46] LABS: D Dimer 6.43 ug/mL (<0.48)
--- NOTE | 2024-07-31 08:46 | PC.NURSE ---
Pt states she did not take her bp meds this AM
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
[2024-07-31 12:20] LABS: Add Urine Microscopic? YES; Appearance Urine Clear (Clear); Bilirubin Urine Negative (Negative); Blood Urine Negative (Negative); Color Urine Yellow (Yellow); Glucose Urine UA Negative (Negative); Ketones Urine Negative (Negative); Leukocyte Esterase Ur 1+ LEU/UL (Negative); Nitrate Urine Negative (Negative); Protein Urine Negative (Negative); Specific Grav Ur 1.016 (1.001-1.035); Urobilinogen Urine 0.2 mg/dL (<2.0); pH Urine 7.5 (5.0-9.0)
== END 2024-07-31 12:27 | disposition home or self-care (01) ==
PROVIDERS: Emergency Provider General Practice; PCP Family Medicine
DX: R55 Syncope and collapse (principal); S30.0XXA Contusion of lower back and pelvis, initial encounter; S51.011A Laceration without foreign body of right elbow, initial encounter; I25.118 Atherosclerotic heart disease of native coronary artery with other forms of angina pectoris; I10 Essential (primary) hypertension; E11.42 Type 2 diabetes mellitus with diabetic polyneuropathy; E78.2 Mixed hyperlipidemia; K21.9 Gastro-esophageal reflux disease without esophagitis; M47.812 Spondylosis without myelopathy or radiculopathy, cervical region; M47.816 Spondylosis without myelopathy or radiculopathy, lumbar region; M81.0 Age-related osteoporosis without current pathological fracture; Z96.643 Presence of artificial hip joint, bilateral; Z90.710 Acquired absence of both cervix and uterus; Z90.79 Acquired absence of other genital organ(s); Z90.722 Acquired absence of ovaries, bilateral; Z79.84 Long term (current) use of oral hypoglycemic drugs; Z79.899 Other long term (current) drug therapy; M50.321 Other cervical disc degeneration at C4-C5 level; M48.02 Spinal stenosis, cervical region; Z98.1 Arthrodesis status; I45.10 Unspecified right bundle-branch block; R00.1 Bradycardia, unspecified; W18.39XA Other fall on same level, initial encounter
CPT/HCPCS: 36415; 70450; 71046; 71275; 72125; 72192; 80053; 81001; 83735; 84484; 85025; 85380; 85610; 85730; 87086; 87186; 93005; 99284; Q9967

== ENCOUNTER 2024-08-31 08:01 | Outpatient (CLI) | payer MEDICARE, SELFPAY ==
--- NOTE | ~2024-08-31 | XR_ITS ---
XR cervical spine 4-5V Ordering provider: Kate Cid MD History: . M54.2 - Cervicalgia . Comparison: August 07, 2010 FINDINGS: VERTEBRAL BODIES: Normal height and alignment. No visible fracture or subluxation. The dens is intact . DISK SPACES: Narrowing of the disc C4-C5, C5-C6 and C6-C7. Multilevel facet joint disease. Multilevel uncovertebral joint osteoarthritic changes.. PARASPINOUS SOFT TISSUES: No prevertebral soft tissue swelling. IMPRESSION: No acute osseous abnormality cervical spine. Multilevel degenerative disc disease. Reviewed, dictated and finalized at location A.
== END 2024-08-31 08:02 | disposition home or self-care (01) ==
LOC: GOSHIMG 08:02
PROVIDERS: PCP Chiropractor; Visit Provider Family Medicine
DX: M50.321 Other cervical disc degeneration at C4-C5 level (principal); M50.322 Other cervical disc degeneration at C5-C6 level; M50.323 Other cervical disc degeneration at C6-C7 level
CPT/HCPCS: 72050

== ENCOUNTER 2024-11-09 13:39 | Outpatient (CLI) | payer MEDICARE, SELFPAY ==
--- NOTE | ~2024-11-09 | MM_ITS ---
EXAMINATION: MM screening cyril BI w radha HISTORY: Screening TECHNIQUE: Craniocaudal and mediolateral oblique 3-D tomosynthesis images were obtained and synthetic 2-D images were generated. CAD analysis was submitted and interpreted. COMPARISON: Comparison to multiple prior studies sequentially, with oldest reviewed study dated 11/25. BREAST PARENCHYMAL COMPOSITION: Dense: The breasts are heterogeneously dense, which may obscure small masses FINDINGS: There is no evidence of suspicious mass, calcification, or architectural distortion to sugg est malignancy in either breast. There has been no suspicious interval change. IMPRESSION: 1. No mammographic evidence of malignancy. 2. Recommend routine screening mammography in one year. BI-RADS Category 1: Negative Reviewed, dictated and finalized at location B.
== END 2024-11-09 13:40 | disposition home or self-care (01) ==
LOC: MICIMG 13:40
PROVIDERS: PCP Family Medicine; Visit Provider Family Medicine
DX: Z12.31 Encounter for screening mammogram for malignant neoplasm of breast (principal)
CPT/HCPCS: 77063; 77067